=== PATIENT | male | born 1965 | race Caucasian/White ===

== ENCOUNTER 2017-10-13 07:25 | Day surgery (SDC) | payer OTHER ==
[2017-10-08 23:30] VITALS: BMI 42.8
[~2017-10-13 07:25] MED LIST: LACTATED RINGERS 1,000 ML IV SCH; LIDOCAINE 1% 20 ML VIAL (10MG/ML) FOR IV START INTRADERMA PRN
[2017-10-13 07:48] VITALS: RESP 16; TEMP 98.3
[2017-10-13] MEDS ORDERED: LIDOCAINE 1% INJ 10MG/ML (20 ML MDV) ONE (08:20)
[2017-10-13] MEDS ORDERED: MIDAZOLAM 2 MG/2 ML VIAL ONE (08:20)
[2017-10-13] MEDS ORDERED: PROPOFOL 10 MG/ML 20 ML VIAL IV ONE (08:20)
[2017-10-13 08:55] VITALS: PULSE 81
[2017-10-13 09:32] VITALS: BP 125/75
--- NOTE | 2017-10-13 10:09 | P.PCN ---
Date of Procedure: 10/13/17 Procedure(s) Performed: Procedure: Colonoscopy and polypectomy. Preoperative diagnosis: Screening for colon neoplasia. Postoperative diagnosis: 1. Sigmoid diverticulosis with no evidence of acute diverticulitis or strictures. 2. Two distal sigmoid polyps, snared, but no large polyps or cancer. Brief clinical history: The patient is a 62-year-old male who is referred for this evaluation for screening for neoplasia age being his risk factor. There is no family history of colon cancer. The patient has no abdominal complaints, bleeding or anemia. This would be his first colonoscopy. Procedure: With the patient on his left lateral decubitus position and after informed consent and adequate sedation, the perianal area was inspected and it did not show any fissures or fistulas. There were no masses felt on digital rectal examination. The Olympus CFQ 160L video colonoscope was then inserted in the rectum in the usual fashion and advanced to the cecum. There were several diverticular orifices seen scattered in the sigmoid with no evidence of acute diverticulitis or strictures. No polyps or tumors were seen. I retroflexed the endoscope in the rectum before the endoscope was withdrawn. The patient tolerated the procedure well. Plan: The patient was reassured. Discussed dietary measures. With the finding of polyps, I recommended repeat exam in 5 years. He will follow up with you as planned.
== END 2017-10-13 09:44 | disposition home or self-care (01) ==
LOC: ORWHC2ENDO 07:25
DX: Z12.11 Encounter for screening for malignant neoplasm of colon (principal); K63.5 Polyp of colon; K57.30 Diverticulosis of large intestine without perforation or abscess without bleeding; K21.9 Gastro-esophageal reflux disease without esophagitis; G47.33 Obstructive sleep apnea (adult) (pediatric); E66.01 Morbid (severe) obesity due to excess calories; Z68.41 Body mass index [BMI] 40.0-44.9, adult; Z79.1 Long term (current) use of non-steroidal anti-inflammatories (NSAID); Z79.899 Other long term (current) drug therapy; Z87.891 Personal history of nicotine dependence; Z99.89 Dependence on other enabling machines and devices
CPT/HCPCS: 45385; J2250; J2001; J2704; 88305

== ENCOUNTER → 2018-08-17 | Outpatient (CLI) | payer OTHER ==
--- NOTE | 2018-08-17 15:29 | XR ---
EXAMINATION TYPE: XR KUB DATE OF EXAM: 08/17/2018 COMPARISON: NONE HISTORY: Left flank pain TECHNIQUE: One view abdominal series FINDINGS: The osseous structures are intact. The bowel gas pattern is nonspecific. Calcifications in the pelvi s are nonspecific but likely vascular. Bowel content does limit assessment of the renal outlines but no obvious calcifications are seen. IMPRESSION: 1. Nonspecific abdomen.
== END | disposition home or self-care (01) ==
LOC: RADXRYALE 14:58
PROVIDERS: ATTEND Physician Assistant
DX: R10.9 Unspecified abdominal pain (principal)
CPT/HCPCS: 74018

== ENCOUNTER → 2018-09-23 | Outpatient (CLI) | payer OTHER ==
--- NOTE | 2018-09-23 15:53 | XR ---
EXAMINATION TYPE: XR knee complete LT DATE OF EXAM: 09/23/2018 COMPARISON: NONE HISTORY: Pain TECHNIQUE: Four views are submitted. FINDINGS: Joint spaces are preserved. Osseous structures are intact. No acute fracture seen. IMPRESSION: 1. No acute fracture or dislocation. If symptoms persist consider follow-up MRI
== END | disposition home or self-care (01) ==
LOC: RADXRYALE 14:51
PROVIDERS: ATTEND Physician Assistant Medical
DX: M25.562 Pain in left knee (principal)

== ENCOUNTER → 2019-02-08 | Outpatient (CLI) | payer OTHER ==
[2019-02-08 12:15] LABS: Basophils # (A) 0.1 k/uL (0-0.2); Basophils % (A) 1 %; Eosinophils # (A) 0.4 k/uL (0-0.7); Eosinophils % (A) 4 %; HCT 51.2 % (39.0-53.0); Lymphocytes # (A) 2.2 k/uL (1.0-4.8); Lymphocytes % (A) 26 %; MCH 29.7 pg (25.0-35.0); MCHC 33.1 g/dL (31.0-37.0); MCV 89.8 fL (80.0-100.0); Mean Platelet Volume 6.6; Monocytes # (A) 0.5 k/uL (0-1.0); Monocytes % (A) 5 %; Neutrophils # (A) 5.2 k/uL (1.3-7.7); Neutrophils % (A) 62 %; Platelet Count 301 k/uL (150-450); RBC 5.71 m/uL (4.30-5.90); RDW 13.8 % (11.5-15.5); WBC 8.4 k/uL (3.8-10.6)
== END | disposition home or self-care (01) ==
LOC: LABPAT 10:58
PROVIDERS: ATTEND Surgery
DX: Z01.810 Encounter for preprocedural cardiovascular examination (principal); Z01.812 Encounter for preprocedural laboratory examination; K43.2 Incisional hernia without obstruction or gangrene
CPT/HCPCS: 36415; 85025; 93005

== ENCOUNTER 2019-02-16 06:10 | Day surgery (SDC) | payer OTHER ==
[2019-02-11 11:16] VITALS: BMI 42.8
[~2019-02-16 06:10] MED LIST changes: +DEXAMETHASONE SOD PHOSPHATE 10 MG/ML 1 ML VIAL IV ONE; +HEPARIN SODIUM,PORCINE 5,000 UNIT/ML 1 ML VIAL SQ ONE; -LIDOCAINE 1% 20 ML VIAL (10MG/ML) FOR IV START INTRADERMA PRN; +MIDAZOLAM 2 MG/2 ML VIAL IV PRN; +ONDANSETRON 4 MG/2 ML VIAL IVP ONE; +SCOPOLAMINE 1.5MG/72HR PATCH TRANSDERM ONE; +ceFAZolin 3 GM in SODIUM CHLORIDE 0.9% 100 ML IVPB ONE
[2019-02-16] MEDS ORDERED: LIDOCAINE 1% 20 ML VIAL (10MG/ML) FOR IV START SQ ONE (07:10)
[2019-02-16] MEDS ORDERED: fentaNYL (PF) 50 MCG/ML 2 ML AMP IV ONE (07:17)
--- NOTE | 2019-02-16 07:47 | P.GSHP ---
History of Present Illness H&P Date: 02/16/19 Chief Complaint: Incarcerated ventral hernia This a 53-year-old male who presents today for laparoscopic robotic-assisted repair of incarcerated ventral hernia. Patient felt a 5 cm mass located approximately 4 cm above the umbilicus. Past Medical History Past Medical History: GERD/Reflux, Skin Disorder, Sleep Apnea/CPAP/BIPAP Additional Past Medical History / Comment(s): psoriasis, History of Any Multi-Drug Resistant Organisms: None Reported Past Surgical History: No Surgical Hx Reported Additional Past Surgical History / Comment(s): colonoscopy Past Anesthesia/Blood Transfusion Reactions: Motion Sickness Additional Past Anesthesia/Blood Transfusion Reaction / Comment(s): . Smoking Status: Former smoker - Past Family History Mother Family Medical History: No Reported History Medications and Allergies Home Medications Medication Instructions Recorded Confirmed Type Ibuprofen [Motrin] 800 - 1,000 mg PO DAILY PRN 10/08/17 02/11/19 History Loratadine-Pseudoeph 10-240 mg 1 each PO DAILY 10/08/17 02/16/19 History [Claritin-D 24 Hr] Esomeprazole Magnesium [NexIUM] 40 mg PO DAILY 02/11/19 02/16/19 History Allergies Allergy/AdvReac Type Severity Reaction Status Date / Time No Known Allergies Allergy Verified 02/16/19 06:41 Surgical - Exam Vital Signs Temp Pulse Resp BP Pulse Ox 98.3 F 79 16 123/69 95 02/16/19 06:49 02/16/19 06:49 02/16/19 06:49 02/16/19 06:49 02/16/19 06:49 BMI 43 - General well developed, well nourished, no distress - Eyes PERRL - ENT normal pinna - Neck no masses - Respiratory normal expansion - Cardiovascular Rhythm: regular - Abdomen 5 cm incarcerated ventral hernia located approximately for 7 m above the umbilicus. Abdomen: soft, non tender Assessment and Plan Assessment: Incarcerated ventral hernia. We'll perform laparoscopic robotic-assisted repair.
[2019-02-16] MEDS ORDERED: ROCURONIUM BROMIDE 10 MG/ML 10 ML VIAL IV ONE (07:54)
[2019-02-16] MEDS ORDERED: fentaNYL (PF) 50 MCG/ML 2 ML AMP ONE (07:54)
[2019-02-16] MEDS ORDERED: LIDOCAINE 2%-EPI 1:100,000 20 ML VIAL ONE (07:54)
[2019-02-16] MEDS ORDERED: MIDAZOLAM 2 MG/2 ML VIAL ONE (07:54)
[2019-02-16] MEDS ORDERED: ROPIVACAINE 5 MG/ML 30 ML VIAL ONE (07:54)
[2019-02-16] MEDS ORDERED: GLYCOPYRROLATE 0.2 MG/ML 2 ML VIAL ONE (07:54)
[2019-02-16] MEDS ORDERED: LIDOCAINE 1% INJ 10MG/ML (20 ML MDV) ONE (07:54)
[2019-02-16] MEDS ORDERED: NEOSTIGMINE 1 MG/ML 10 ML VIAL ONE (07:54)
[2019-02-16] MEDS ORDERED: PROPOFOL 10 MG/ML 20 ML VIAL IV ONE (07:54)
[2019-02-16] MEDS ORDERED: SUCCINYLCHOLINE CHLORIDE VIAL 200 MG/10 ML VIAL IV ONE (07:54)
[2019-02-16] MEDS ORDERED: BUPIVACAINE (PF) 0.25% 30 ML VIAL SQ ONE (08:39)
[2019-02-16 09:19] VITALS: TEMP 97.4
[2019-02-16] MEDS: HYDROmorphone 0.5 MG/0.5 ML SYRINGE IVP PRN ×2 (09:27→10:00)
--- NOTE | 2019-02-16 09:44 | P.OP ---
Date of Procedure: 02/16/19 Preoperative Diagnosis: Incarcerated ventral hernia Postoperative Diagnosis: Incarcerated ventral hernia Procedure(s) Performed: Laparoscopic robotic-assisted repair of incarcerated ventral hernia Partial omentectomy Anesthesia: BAKARI Surgeon: Stevie Germain Estimated Blood Loss (ml): 5 Pathology: other (Omentum) Condition: stable Disposition: PACU Description of Procedure: The patient was placed on the operating table in the supine position. He received general anesthesia. His abdomen was prepped and draped usual fashion. Using a 5 mm optical trocar under direct visualization the peritoneal cavity was entered in the left upper quadrant. The abdomen was then insufflated. The laparoscope was placed back into the perineal cavity. Next a 8 mm robotic trocar was placed in the left lower quadrant and a 12 mm robotic trocar was placed in the left lateral position. The original 5 mm trocar was exchanged for a 8 mm robotic trocar. The patient's placed in the left side up position. And the patient was docked to the robot. The incarcerated ventral hernia was visualized. There was incarcerated omentum within the hernia. Using hook cautery the hernia was reduced. A portion of the omentum was transected. This was sent to pathology. Using hook cautery the peritoneum over the incisional hernia was excised. The fascial opening was repaired using 0V LOC suture. Next a piece of 11 cm round ventral light ST mesh was placed into the. Cavity and secured with 2 OV lock suture. The patient was undocked the robot. The needles were retrieved. The fascia of the 12 mm trocar site was closed with 0 Ethibond suture. Skin was closed interrupted 3-0 Monocryl suture. Dermabond dressings was applied. Patient tolerated procedure well and was sent to recovery room stable condition.
--- NOTE | 2019-02-16 10:18 | P.ONQ ---
Anesthesiology Proc Note - PNB - Peripheral Nerve Block Performed Bilateral Rectus Abdominis Single Time Out Performed: Yes Procedure Stop Time: 07:18 Indication: Acute Post-Operative Pain Specifically requested for management of pain by DrParis: Stevie Germain Sedation Type: Sedate with meaningful contact maintained Preparation: Sterile Prep Position: Supine Catheter: None Needle Types: Other (see comment) (PAJUNK) Needle Size: 100mm (4") Needle Gauge: 21 Technique: Ultrasound Injectate: Other (see comment) (Ropivacaine 0.25%/lidocaine 0.5% 30 mL per side) Adjunct: Epinephrine (see comment for dilution ratio) (1:200,000) Blood Aspirated: No Pain Paresthesia on Injection Noted: No Resistance on Injection: Normal Events: Uneventful and Well Tolerated
[2019-02-16 10:22] VITALS: RESP 16
[2019-02-16] MEDS ORDERED: HYDROcodone/APAP 7.5-325MG 1 EACH TAB PO ONE (11:09)
[2019-02-16 11:11] VITALS: PULSE 73
[2019-02-16 12:25] VITALS: BP 119/78
== END 2019-02-16 12:33 | disposition home or self-care (01) ==
LOC: OR 06:10
PROVIDERS: ATTEND Surgery
DX: K43.6 Other and unspecified ventral hernia with obstruction, without gangrene (principal); L40.9 Psoriasis, unspecified; K21.9 Gastro-esophageal reflux disease without esophagitis; G47.33 Obstructive sleep apnea (adult) (pediatric); Z99.89 Dependence on other enabling machines and devices; Z87.891 Personal history of nicotine dependence; Z79.899 Other long term (current) drug therapy
CPT/HCPCS: 49653; S2900; 64488; 88302

== ENCOUNTER 2019-04-06 09:50 | Emergency (ER) | payer OTHER ==
[2019-04-06 09:56] VITALS: TEMP 97.6
--- NOTE | 2019-04-06 10:19 | ED ---
General Adult HPI - General Chief complaint: Abdominal Pain Stated complaint: lt sided abd pain Time Seen by Provider: 04/06/19 10:04 Source: patient, RN notes reviewed Mode of arrival: ambulatory Limitations: no limitations - History of Present Illness Initial comments: 53-year-old male with a past medical history of GERD, psoriasis, sleep apnea presents to the emergency department for a chief complaint of left flank pain. Patient states this has been ongoing for a few hours now. States it is a sharp pain in his left back that radiates into the left side of the abdomen. Patient states he feels like he does have a strange sensation when urinating. Denies noticing any blood in the urine. Patient does admit to nausea denies vomiting. Patient did have diarrhea several times yesterday as well. Denies fevers or chills. Patient did have a laparoscopic hernia repair [address] Germain. Patient has no other complaints at this time including shortness of breath, chest pain, vomiting, headache, or visual changes. - Related Data Home Medications Medication Instructions Recorded Confirmed Ibuprofen [Motrin] 800 - 1,000 mg PO DAILY PRN 10/08/17 04/06/19 Loratadine-Pseudoeph 10-240 mg 1 tab PO DAILY 10/08/17 04/06/19 [Claritin-D 24 Hr] Esomeprazole Magnesium [NexIUM] 40 mg PO DAILY 02/11/19 04/06/19 Oxymetazoline 0.05% Nasl [place] 1 spray EA NOSTRIL BID PRN 04/06/19 04/06/19 [Afrin 0.05% Nasal [place]] Previous Rx's Medication Instructions Recorded HYDROcodone/APAP 5-325MG [[place] 1 tab PO Q6HR PRN #10 tab 04/06/19 5-325] Ibuprofen [Motrin] 600 mg PO Q8HR PRN #20 tab 04/06/19 Ondansetron [Zofran ODT] 4 mg PO Q8HR PRN #15 tab 04/06/19 Tamsulosin [Flomax] 0.4 mg PO DAILY #14 cap 04/06/19 Allergies Allergy/AdvReac Type Severity Reaction Status Date / Time No Known Allergies Allergy Verified 04/06/19 10:02 Review of Systems ROS Statement: Those systems with pertinent positive or pertinent negative responses have been documented in the HPI. ROS Other: All systems not noted in ROS Statement are negative. Past Medical History Past Medical History: GERD/Reflux, Skin Disorder, Sleep Apnea/CPAP/BIPAP Additional Past Medical History / Comment(s): psoriasis, History of Any Multi-Drug Resistant Organisms: None Reported Past Surgical History: No Surgical Hx Reported, Hernia Repair Additional Past Surgical History / Comment(s): colonoscopy Past Anesthesia/Blood Transfusion Reactions: Motion Sickness Additional Past Anesthesia/Blood Transfusion Reaction / Comment(s): . Past Psychological History: No Psychological Hx Reported Smoking Status: Former smoker Past Alcohol Use History: Occasional Past Drug Use History: None Reported - Past Family History Mother Family Medical History: No Reported History General Exam Limitations: no limitations General appearance: alert, in no apparent distress Head exam: Present: atraumatic, normocephalic, normal inspection Eye exam: Present: normal appearance, PERRL, EOMI. Absent: scleral icterus, conjunctival injection, periorbital swelling ENT exam: Present: normal exam, mucous membranes moist Neck exam: Present: normal inspection, full ROM. Absent: tenderness, meningis mus, lymphadenopathy Respiratory exam: Present: normal lung sounds bilaterally. Absent: respiratory distress, wheezes, rales, rhonchi, stridor Cardiovascular Exam: Present: regular rate, normal rhythm, normal heart sounds. Absent: systolic murmur, diastolic murmur, rubs, gallop, clicks GI/Abdominal exam: Present: soft, normal bowel sounds. Absent: distended, tenderness (Tenderness in the abdomen.), guarding, rebound, rigid Back exam: Absent: CVA tenderness (R), CVA tenderness (L) Neurological exam: Present: alert, oriented X3, CN II-XII intact Psychiatric exam: Present: normal affect, normal mood Course Vital Signs 04/06/19 09:53 Temperature 97.6 F Pulse Rate 70 Respiratory 20 Rate Blood Pressure 164/98 O2 Sat by Pulse 97 Oximetry Medical Decision Making - Medical Decision Making Shad is a 53-year-old male presents for left flank pain for the past few hours. Vitals are stable. On exam patient does appear uncomfortable. Patient does not have any significant left CVA tenderness. No abdominal tenderness. CBC shows a leukocytosis of 13.6, likely reactive. CMP is unremarkable. Urine does show 72 red blood cells, likely secondary to ureterolithiasis. On CT abdomen and pelvis without contrast there is an indeterminate soft tissue mass on the lower pole of the left kidney with a differential to include renal cell carcinoma. There is also a 4 mm obstructive ureteral calculus with left-sided hydronephrosis and possible forniceal rupture. Dr. Pressley spoke with urology about this. They recommend follow-up with them. Initially given Toradol which did help with his pain however did come back somewhat so patient was given morphine and monitored before discharge. Discussed results of CT with patient a nd he will follow up with her ALLERGY. He is aware of possible malignancy. Patient will be given pain medicine for home. Will return here if he has any worsening symptoms, intolerable pain, or is unable to keep down solids or liquids. - Lab Data Result diagrams: 04/06/19 11:05 04/06/19 11:05 Lab Results 04/06/19 04/06/19 04/06/19 Range/Units 11:05 11:05 12:15 WBC 13.6 H (3.8-10.6) k/uL RBC 5.40 (4.30-5.90) m/uL Hgb 15.8 (13.0-17.5) gm/dL Hct 46.6 (39.0-53.0) % MCV 86.2 (80.0-100.0) fL MCH 29.2 (25.0-35.0) pg MCHC 33.9 (31.0-37.0) g/dL RDW 15.8 H (11.5-15.5) % Plt Count 289 (150-450) k/uL Neutrophils % 88 % Lymphocytes % 7 % Monocytes % 4 % Eosinophils % 1 % Basophils % 0 % Neutrophils # 12.0 H (1.3-7.7) k/uL Lymphocytes # 1.0 (1.0-4.8) k/uL Monocytes # 0.5 (0-1.0) k/uL Eosinophils # 0.1 (0-0.7) k/uL Basophils # 0.0 (0-0.2) k/uL Sodium 140 (137-145) mmol/L Potassium 4.1 (3.5-5.1) mmol/L Chloride 109 H (98-107) mmol/L Carbon Dioxide 21 L (22-30) mmol/L Anion Gap 10 mmol/L BUN 18 (9-20) mg/dL Creatinine 1.08 (0.66-1.25) mg/dL Est GFR (CKD-EPI)AfAm >90 (>60 ml/min/1.73 sqM) Est GFR (CKD-EPI)NonAf 78 (>60 ml/min/1.73 sqM) Glucose 130 H (74-99) mg/dL Calcium 9.4 (8.4-10.2) mg/dL Total Bilirubin 0.5 (0.2-1.3) mg/dL AST 24 (17-59) U/L ALT 43 (21-72) U/L Alkaline Phosphatase 91 (38-126) U/L Total Protein 6.5 (6.3-8.2) g/dL Albumin 3.9 (3.5-5.0) g/dL Amylase 54 (30-110) U/L Lipase 52 (23-300) U/L Urine Color Yellow Urine Appearance Turbid (Clear) Urine pH 5.0 (5.0-8.0) Ur Specific [place] 1.028 (1.001-1.035) Urine Protein Trace H (Negative) Urine Glucose (UA) 1+ H (Negative) Urine Ketones Trace H (Negative) Urine Blood Moderate H (Negative) Urine Nitrite Negative (Negative) Urine Bilirubin Negative (Negative) Urine Urobilinogen <2.0 (<2.0) mg/dL Ur Leukocyte Esterase Negative (Negative) Urine RBC 72 H (0-5) /hpf Urine WBC 1 (0-5) /hpf Ur Squamous Epith Cells 3 (0-4) /hpf Urine Mucus Rare H (None) /hpf Disposition Clinical Impression: Ureterolithiasis, Left kidney mass Disposition: HOME SELF-CARE Condition: Good Instructions (If sedation given, give patient instructions): Kidney Stones (ED) Additional Instructions: Please take Motrin for pain. If pain is severe take [place]. Do not drive or operate machinery while taking [place]. Take Zofran for nausea. Take Flomax daily. Follow up with urology as soon as possible. Return if you have any worsening symptoms. Prescriptions: Tamsulosin [Flomax] 0.4 mg PO DAILY #14 cap Ibuprofen [Motrin] 600 mg PO Q8HR PRN #20 tab PRN Reason: Pain HYDROcodone/APAP 5-325MG [[place] 5-325] 1 tab PO Q6HR PRN #10 tab PRN Reason: Pain Ondansetron [Zofran ODT] 4 mg PO Q8HR PRN #15 tab PRN Reason: Nausea Is patient prescribed a controlled substance at d/c from ED?: No Referrals: Gee Logan DO [Primary Care Provider] - 1-2 days Deepak Madera MD [STAFF PHYSICIAN] - 1-2 days Time of Disposition: 13:19
[2019-04-06] MEDS ORDERED: ONDANSETRON 4 MG/2 ML VIAL IVP STA (10:21)
[2019-04-06] MEDS ORDERED: SODIUM CHLORIDE 0.9% 1,000 ML IV STA (10:21)
[2019-04-06] MEDS ORDERED: KETOROLAC 30 MG/ML 1 ML VIAL IVP STA (10:21)
[2019-04-06 11:18] LABS: Basophils % (A) 0 %; Eosinophils # (A) 0.1 k/uL (0-0.7); Eosinophils % (A) 1 %; HCT 46.6 % (39.0-53.0); HGB 15.8 gm/dL (13.0-17.5); Lymphocytes % (A) 7 %; MCH 29.2 pg (25.0-35.0); MCHC 33.9 g/dL (31.0-37.0); MCV 86.2 fL (80.0-100.0); Mean Platelet Volume 7.1; Monocytes # (A) 0.5 k/uL (0-1.0); Monocytes % (A) 4 %; Neutrophils % (A) 88 %; Platelet Count 289 k/uL (150-450); RDW 15.8 % (11.5-15.5); WBC 13.6 k/uL (3.8-10.6)
[2019-04-06 11:34] LABS: ALT 43 U/L (21-72); AST 24 U/L (17-59); African American GFR (CKD) >90 (>60 ml/min/1.73 sqM); Albumin 3.9 g/dL (3.5-5.0); Alkaline Phosphatase 91 U/L (38-126); Amylase 54 U/L (30-110); Anion Gap 10 mmol/L; Blood Urea Nitrogen 18 mg/dL (9-20); Calcium 9.4 mg/dL (8.4-10.2); Carbon Dioxide 21 mmol/L (22-30); Chloride 109 mmol/L (98-107); Glucose 130 mg/dL (74-99); Lipase 52 U/L (23-300); Potassium 4.1 mmol/L (3.5-5.1); Sodium 140 mmol/L (137-145); Total Bilirubin 0.5 mg/dL (0.2-1.3); Total Protein 6.5 g/dL (6.3-8.2)
--- NOTE | 2019-04-06 11:39 | XR ---
KUB HISTORY: Pain, left flank pain Frontal KUB and 2 images Correlation to prior exam 08/17/[address] 04/06/2019 Lung bases are clear. There is no evident pneumoperitoneum or bowel obstruction. Slight spinal curva ture is again noted. Degenerative disc disease changes suspected in the lumbar spine. Partial sacrali zation of L5 noted. Probable calcification seen at the level of the left L4 transverse process measur ing approximately 4 mm. IMPRESSION: Nonobstructive bowel gas pattern. Left ureteral calculus.
--- NOTE | 2019-04-06 11:45 | CT ---
EXAMINATION TYPE: CT abdomen pelvis wo con DATE OF EXAM: 04/06/2019 COMPARISON: KUB same date HISTORY: Lt flank pain CT DLP: 1443.4 mGycm Automated exposure control for dose reduction was used. TECHNIQUE: Helical acquisition of images from the lung bases through the pelvis. FINDINGS: Lack of contrast could compromise the sensitivity of the exam. LUNG BASES: There is some dependent atelectatic changes present. There is a small hiatal hernia. AORTA: No significant abnormality is appreciated. LIVER/GB: Borderline upper limit of normal for size, liver attenuation is low suggesting hepatic stea tosis. Gallbladder is normal. PANCREAS: No significant abnormality is seen. SPLEEN: No significant abnormality is seen. ADRENALS: No significant abnormality is seen. KIDNEYS: There is a soft tissue mass at the lower pole the left kidney measuring approximately 5 cm i n size. Nonobstructive calculus is present in the lower pole the left kidney measuring only 2 mm. The re is left-sided hydronephrosis. Perinephric stranding is present. Within the mid ureter there is a 4 mm calcification on the left. REPRODUCTIVE ORGANS: No significant abnormality is seen. URINARY BLADDER: Urine shows high density possibly due to some blood within the bladder BOWEL: No si gnificant abnormality is seen. FREE AIR: No Free Air is visible. ASCITES: None visible. PELVIC ADENOPATHY: None visualized. RETROPERITONEAL ADENOPATHY: No Retroperitoneal Adenopathy visible. OSSEOUS STRUCTURES: No significant abnormality is seen. IMPRESSION: INDETERMINATE SOFT TISSUE MASS LOWER POLE LEFT KIDNEY, DIFFERENTIAL DIAGNOSTIC CONSIDERATIONS INCLUDE RENAL CELL CARCINOMA. MID URETERAL CALCULUS WITH LEFT-SIDED HYDRONEPHROSIS AND POSSIBLE FORNICEAL RU PTURE. NONOBSTRUCTIVE LOWER POLE RENAL CALCULUS ON THE LEFT. NONCONTRAST EXAM MAY LIMIT SENSITIVITY. CORRELATE FOR HEPATIC STEATOSIS. SMALL HIATAL HERNIA. ADDITIONAL FINDINGS ABOVE.
[2019-04-06 12:40] LABS: Appearance,Urine Turbid (Clear); Bilirubin,Urine Negative (Negative); Blood,Urine Moderate (Negative); Color,Urine Yellow; Glucose,Urine (UA) 1+ (Negative); Ketones,Urine Trace (Negative); Leukocyte Esterase,Urine Negative (Negative); Mucus,Urine Rare /hpf; Nitrite,Urine Negative (Negative); Protein,Urine Trace (Negative); RBC,Urine 72 /hpf (0-5); Specific Gravity,Urine 1.028 (1.001-1.035); Squamous Epithelial Cell,Urine 3 /hpf (0-4); Urobilinogen,Urine <2.0 mg/dL (<2.0); WBC,Urine 1 /hpf (0-5)
[2019-04-06] MEDS ORDERED: MORPHINE SULFATE 4 MG/ML SYRINGE IVP STA (13:42)
[2019-04-06 14:11] VITALS: BP 150/89; PULSE 72; RESP 16
== END 2019-04-06 14:10 | disposition home or self-care (01) ==
LOC: EC 09:50
DX: N13.2 Hydronephrosis with renal and ureteral calculous obstruction (principal); N28.89 Other specified disorders of kidney and ureter; D72.829 Elevated white blood cell count, unspecified; K21.9 Gastro-esophageal reflux disease without esophagitis; L40.9 Psoriasis, unspecified; G47.30 Sleep apnea, unspecified; Z87.891 Personal history of nicotine dependence; Z79.899 Other long term (current) drug therapy; Z98.890 Other specified postprocedural states; Z99.89 Dependence on other enabling machines and devices
CPT/HCPCS: 99284; 96374; 96375; 96361; 36415; 80053; 82150; 83690; 85025; 81001; 74018; 74176; J2270; J2405; J1885

== ENCOUNTER 2019-04-09 20:12 | Emergency (ER) | payer OTHER ==
[2019-04-09 20:25] VITALS: RESP 16; TEMP 98.1
[2019-04-09] MEDS ORDERED: KETOROLAC 30 MG/ML 1 ML VIAL IVP ONE (21:16)
[2019-04-09 21:59] LABS: Basophils % (A) 0 %; Eosinophils # (A) 0.4 k/uL (0-0.7); Eosinophils % (A) 4 %; HCT 45.3 % (39.0-53.0); HGB 15.5 gm/dL (13.0-17.5); Lymphocytes # (A) 1.5 k/uL (1.0-4.8); Lymphocytes % (A) 13 %; MCH 29.3 pg (25.0-35.0); MCHC 34.2 g/dL (31.0-37.0); MCV 85.8 fL (80.0-100.0); Mean Platelet Volume 6.4; Monocytes # (A) 0.7 k/uL (0-1.0); Monocytes % (A) 6 %; Neutrophils # (A) 8.4 k/uL (1.3-7.7); Neutrophils % (A) 75 %; Platelet Count 289 k/uL (150-450); RBC 5.28 m/uL (4.30-5.90); RDW 13.9 % (11.5-15.5); WBC 11.3 k/uL (3.8-10.6)
[2019-04-09 22:09] LABS: ALT 26 U/L (21-72); AST 16 U/L (17-59); African American GFR (CKD) >90 (>60 ml/min/1.73 sqM); Albumin 3.4 g/dL (3.5-5.0); Alkaline Phosphatase 78 U/L (38-126); Anion Gap 8 mmol/L; Blood Urea Nitrogen 22 mg/dL (9-20); Calcium 9.2 mg/dL (8.4-10.2); Carbon Dioxide 24 mmol/L (22-30); Chloride 107 mmol/L (98-107); Glucose 123 mg/dL (74-99); Sodium 139 mmol/L (137-145); Total Bilirubin 0.2 mg/dL (0.2-1.3); Total Protein 5.7 g/dL (6.3-8.2)
[2019-04-09 22:10] LABS: Appearance,Urine Cloudy (Clear); Bilirubin,Urine Negative (Negative); Blood,Urine Moderate (Negative); Color,Urine Yellow; Glucose,Urine (UA) Negative (Negative); Hyaline Casts,Urine 1 /lpf (0-2); Ketones,Urine Negative (Negative); Leukocyte Esterase,Urine Negative (Negative); Mucus,Urine Rare /hpf; Nitrite,Urine Negative (Negative); Protein,Urine Negative (Negative); RBC,Urine 36 /hpf (0-5); Specific Gravity,Urine 1.023 (1.001-1.035); Squamous Epithelial Cell,Urine 2 /hpf (0-4); Uric Acid Crystals,Urine Occasional /hpf; Urobilinogen,Urine <2.0 mg/dL (<2.0); WBC,Urine 3 /hpf (0-5)
--- NOTE | 2019-04-09 23:28 | ED ---
Abdominal Pain HPI - General Chief Complaint: Abdominal Pain Stated Complaint: Revisit Dx Kidney Stones Time Seen by Provider: 04/09/19 21:15 Source: patient Mode of arrival: ambulatory - History of Present Illness Initial Comments: Shad is a 53-year-old woman who presents to the ER today for evaluation of recurrent left flank pain. Patient was seen and evaluated earlier in the week and diagnosed with a left mid ureteral stone measuring 4 mm. Patient was treated with morphine and Toradol in the ER and discharged home with Flomax, Motrin and Elaine. Patient reports he's been compliant with his meds. He's been feeling good for a day however today he had sudden onset of stabbing left flank pain similar to previous. Patient reports that despite taking his Elaine his augustine n did not improve so he came to the ER for evaluation. Patient denies any dysuria, gross hematuria, nausea or vomiting. He denies any fevers chills. - Related Data Home Medications Medication Instructions Recorded Confirmed Loratadine-Pseudoeph 10-240 mg 1 tab PO DAILY 10/08/17 04/09/19 [Claritin-D 24 Hr] Esomeprazole Magnesium [NexIUM] 40 mg PO DAILY 02/11/19 04/09/19 Oxymetazoline 0.05% Nasl [place] 1 spray EA NOSTRIL BID PRN 04/06/19 04/09/19 [Afrin 0.05% Nasal [place]] Previous Rx's Medication Instructions Recorded HYDROcodone/APAP 5-325MG [[place] 1 tab PO Q6HR PRN #10 tab 04/06/19 5-325] Ibuprofen [Motrin] 600 mg PO Q8HR PRN #20 tab 04/06/19 Ondansetron [Zofran ODT] 4 mg PO Q8HR PRN #15 tab 04/06/19 Tamsulosin [Flomax] 0.4 mg PO DAILY #14 cap 04/06/19 Allergies Allergy/AdvReac Type Severity Reaction Status Date / Time No Known Allergies Allergy Verified 04/09/19 21:53 Review of Systems ROS Statement: Those systems with pertinent positive or pertinent negative responses have been documented in the HPI. ROS Other: All systems not noted in ROS Statement are negative. Past Medical History Past Medical History: GERD/Reflux, Skin Disorder, Sleep Apnea/CPAP/BIPAP Additional Past Medical History / Comment(s): psoriasis, History of Any Multi-Drug Resistant Organisms: None Reported Past Surgical History: No Surgical Hx Reported, Hernia Repair Additional Past Surgical History / Comment(s): colonoscopy Past Anesthesia/Blood Transfusion Reactions: Motion Sickness Additional Past Anesthesia/Blood Transfusion Reaction / Comment(s): . Past Psychological History: No Psychological Hx Reported Smoking Status: Former smoker Past Alcohol Use History: Occasional Past Drug Use History: None Reported - Past Family History Mother Family Medical History: No Reported History General Exam - General Exam Comments Initial Comments: Physical Exam GENERAL: Appears uncomfortable, writhing rocking back and forth in pain cannot find a comfortable position HENT: Normocephalic, Atraumatic. EYES: PERRL, EOMI PULMONARY: Unlabored respirations. No audible rales rhonchi or wheezing was noted. CARDIOVASCULAR: There is a regular rate and rhythm without any murmurs gallops or rubs. ABDOMEN: And percussion of the left flank SKIN: Skin is clear with no lesions or rashes and otherwise unremarkable. : Deferred NEUROLOGIC: Patient is alert and oriented x3. Moving all extremities spontaneously MUSCULOSKELETAL: Normal extremities with adequate strength and full range of motion. No lower extremity swelling or edema. No calf tenderness. PSYCHIATRIC: Normal psychiatric evaluation Course Vital Signs 04/09/19 04/09/19 20:22 23:40 Temperature 98.1 F Pulse Rate 77 73 Respiratory 16 16 Rate Blood Pressure 168/105 121/70 O2 Sat by Pulse 96 97 Oximetry Medical Decision Making - Medical Decision Making The patient was seen and evaluated, history is obtained from the patient review of medical record 53-year-old gentleman with a known kidney stone as well as no left-sided renal mass presenting with recurrent pain Patient's pain was treated with Toradol upon reevaluation pain has improved significantly. I did offer the patient morphine however he states that he didn't do anything for him and he doesn't feel he benefit him he would like to be discharged home at this time. Patient is to follow-up with urology as scheduled on Friday. All questions pertaining care were answered return parameters were discussed patient was discharged home in stable condition Chart was dictated using [employer] dictation software. Attempts were made to correct any dictation errors however some typographical errors may persist. - Lab Data Result diagrams: 04/09/19 21:50 04/09/19 21:50 Lab Results 04/09/19 04/09/19 04/09/19 Range/Units 21:50 21:50 21:50 WBC 11.3 H (3.8-10.6) k/uL RBC 5.28 (4.30-5.90) m/uL Hgb 15.5 (13.0-17.5) gm/dL Hct 45.3 (39.0-53.0) % MCV 85.8 (80.0-100.0) fL MCH 29.3 (25.0-35.0) pg MCHC 34.2 (31.0-37.0) g/dL RDW 13.9 (11.5-15.5) % Plt Count 289 (150-450) k/uL Neutrophils % 75 % Lymphocytes % 13 % Monocytes % 6 % Eosinophils % 4 % Basophils % 0 % Neutrophils # 8.4 H (1.3-7.7) k/uL Lymphocytes # 1.5 (1.0-4.8) k/uL Monocytes # 0.7 (0-1.0) k/uL Eosinophils # 0.4 (0-0.7) k/uL Basophils # 0.0 (0-0.2) k/uL Sodium 139 (137-145) mmol/L Potassium 4.0 (3.5-5.1) mmol/L Chloride 107 (98-107) mmol/L Carbon Dioxide 24 (22-30) mmol/L Anion Gap 8 mmol/L BUN 22 H (9-20) mg/dL Creatinine 0.95 (0.66-1.25) mg/dL Est GFR (CKD-EPI)AfAm >90 (>60 ml/min/1.73 sqM) Est GFR (CKD-EPI)NonAf >90 (>60 ml/min/1.73 sqM) Glucose 123 H (74-99) mg/dL Calcium 9.2 (8.4-10.2) mg/dL Total Bilirubin 0.2 (0.2-1.3) mg/dL AST 16 L (17-59) U/L ALT 26 (21-72) U/L Alkaline Phosphatase 78 (38-126) U/L Total Protein 5.7 L (6.3-8.2) g/dL Albumin 3.4 L (3.5-5.0) g/dL Urine Color Yellow Urine Appearance Cloudy (Clear) Urine pH 5.0 (5.0-8.0) Ur Specific [place] 1.023 (1.001-1.035) Urine Protein Negative (Negative) Urine Glucose (UA) Negative (Negative) Urine Ketones Negative (Negative) Urine Blood Moderate H (Negative) Urine Nitrite Negative (Negative) Urine Bilirubin Negative (Negative) Urine Urobilinogen <2.0 (<2.0) mg/dL Ur Leukocyte Esterase Negative (Negative) Urine RBC 36 H (0-5) /hpf Urine WBC 3 (0-5) /hpf Ur Squamous Epith Cells 2 (0-4) /hpf Uric Acid Crystals Occasional H (None) /hpf Hyaline Casts 1 (0-2) /lpf Urine Mucus Rare H (None) /hpf Disposition Clinical Impression: Ureterolithiasis Disposition: HOME SELF-CARE Condition: Stable Instructions (If sedation given, give patient instructions): Kidney Stones (ED) Is patient prescribed a controlled substance at d/c from ED?: No Referrals: Gee Logan DO [Primary Care Provider] - 1-2 days
[2019-04-09 23:41] VITALS: BP 121/70; PULSE 73
== END 2019-04-09 23:41 | disposition home or self-care (01) ==
LOC: EC 20:12
DX: N20.2 Calculus of kidney with calculus of ureter (principal); K21.9 Gastro-esophageal reflux disease without esophagitis; G47.30 Sleep apnea, unspecified; Z87.891 Personal history of nicotine dependence; Z79.899 Other long term (current) drug therapy; Z99.89 Dependence on other enabling machines and devices
CPT/HCPCS: 36415; 80053; 85025; 81001; 99284; 96374; J1885

== ENCOUNTER → 2019-04-23 | Outpatient (CLI) | payer OTHER ==
--- NOTE | 2019-04-23 20:46 | CT ---
EXAMINATION TYPE: CT abdomen pelvis w con DATE OF EXAM: 04/23/2019 COMPARISON: Prior CT 04/06/2019 HISTORY: LT renal cyst. Hx hernia sx CT DLP: 1926 mGycm Automated exposure control for dose reduction was used. TECHNIQUE: Helical acquisition of images from the lung bases through the pelvis have been completed. CONTRAST: Performed with Oral Contrast and with IV Contrast, patient injected with 100 mL of Isovue 300. FINDINGS: There is a small hiatal hernia present. Supraumbilical subcutaneous fat shows increased att enuation as on prior possibly due to underlying scar or local ecchymosis, cannot exclude inflammatory change, infection. There is a small umbilical hernia containing fat. LUNG BASES: 5 mm nodule associated with the major fissure shows a soft tissue parents the right lower lobe, there is an additional nodule in the subpleural location on axial image 2 in the lingula showi ng possible central calcification, nodules may be benign. AORTA: No significant abnormality is appreciated. LIVER/GB: Liver shows low attenuation and is enlarged likely due to hepatic steatosis. PANCREAS: No significant abnormality is seen. SPLEEN: No significant abnormality is seen. ADRENALS: No significant abnormality is seen. KIDNEYS: Lesion at the lower pole left kidney measures approximately 5.3 cm in greatest dimension and shows enhancement, heterogeneous appearance compatible with renal cell carcinoma. No hydronephrosis bilaterally. REPRODUCTIVE ORGANS: No significant abnormality is seen BOWEL: No significant abnormality is seen. FREE AIR: No Free Air visible. ASCITES: None visible. PELVIC ADENOPATHY: None visualized. RETROPERITONEAL ADENOPATHY: No Retroperitoneal Adenopathy visible. URINARY BLADDER: No significant abnormality is seen. OSSEOUS STRUCTURES: No significant abnormality is seen. IMPRESSION: FINDINGS CONSISTENT WITH LEFT RENAL CELL CARCINOMA. HEPATIC STEATOSIS, HEPATOMEGALY. FINDINGS IN THE SUBCUTANEOUS FAT IN THE SUPRAUMBILICAL LOCATION. INDETERMINATE PULMONARY NODULES.
== END | disposition home or self-care (01) ==
LOC: RADCTMAIN 15:40
PROVIDERS: ATTEND Urology
DX: K76.0 Fatty (change of) liver, not elsewhere classified (principal); R16.0 Hepatomegaly, not elsewhere classified
CPT/HCPCS: 74177; Q9967

== ENCOUNTER → 2019-05-12 | Outpatient (CLI) | payer OTHER ==
[2019-05-12 08:24] LABS: Basophils % (A) 0 %; Eosinophils # (A) 0.3 k/uL (0-0.7); Eosinophils % (A) 4 %; HCT 48.2 % (39.0-53.0); HGB 16.3 gm/dL (13.0-17.5); Lymphocytes # (A) 1.8 k/uL (1.0-4.8); Lymphocytes % (A) 22 %; MCH 29.8 pg (25.0-35.0); MCHC 33.8 g/dL (31.0-37.0); Mean Platelet Volume 6.6; Monocytes # (A) 0.6 k/uL (0-1.0); Monocytes % (A) 7 %; Neutrophils # (A) 5.4 k/uL (1.3-7.7); Neutrophils % (A) 66 %; Platelet Count 276 k/uL (150-450); RBC 5.48 m/uL (4.30-5.90); RDW 14.2 % (11.5-15.5); WBC 8.3 k/uL (3.8-10.6)
[2019-05-12 08:25] LABS: Appearance,Urine Clear (Clear); Bilirubin,Urine Negative (Negative); Blood,Urine Negative (Negative); Color,Urine Yellow; Glucose,Urine (UA) Negative (Negative); Ketones,Urine Negative (Negative); Leukocyte Esterase,Urine Negative (Negative); Nitrite,Urine Negative (Negative); Protein,Urine Negative (Negative); Specific Gravity,Urine 1.026 (1.001-1.035); Urobilinogen,Urine <2.0 mg/dL (<2.0)
[2019-05-12 08:32] LABS: ALT 33 U/L (21-72); AST 17 U/L (17-59); African American GFR (CKD) >90 (>60 ml/min/1.73 sqM); Albumin 3.7 g/dL (3.5-5.0); Alkaline Phosphatase 70 U/L (38-126); Anion Gap 10 mmol/L; Blood Urea Nitrogen 19 mg/dL (9-20); Calcium 9.1 mg/dL (8.4-10.2); Carbon Dioxide 24 mmol/L (22-30); Chloride 107 mmol/L (98-107); Glucose 101 mg/dL (74-99); Potassium 4.4 mmol/L (3.5-5.1); Sodium 141 mmol/L (137-145); Total Bilirubin 0.6 mg/dL (0.2-1.3); Total Protein 6.3 g/dL (6.3-8.2)
--- NOTE | 2019-05-12 09:59 | XR ---
EXAMINATION TYPE: XR chest 2V DATE OF EXAM: 05/12/2019 COMPARISON: Prior chest x-ray 01/12/2015 HISTORY: Presurgical, cough TECHNIQUE: Frontal and lateral views of the chest are obtained. FINDINGS: There is no focal air space opacity, pleural effusion, or pneumothorax seen. The cardiac silhouette size is within normal limits. The osseous structures are intact. IMPRESSION: No acute cardiopulmonary process.
== END | disposition home or self-care (01) ==
LOC: LABPAT 07:20
PROVIDERS: ATTEND Urology
DX: Z01.818 Encounter for other preprocedural examination (principal); Z01.812 Encounter for preprocedural laboratory examination; C64.2 Malignant neoplasm of left kidney, except renal pelvis; R05 Cough; R53.83 Other fatigue
CPT/HCPCS: 71046; 80053; 81003; 85025

== ENCOUNTER 2019-05-19 06:02 | Inpatient (IN) | payer OTHER ==
--- NOTE | 2019-05-18 13:33 | P.GSHP ---
History of Present Illness H&P Date: 05/18/19 53 yo male who recently had sever left flank pain c/w a stone passage Had a ct scan that showed a 5 cm deep left parenchymal mass c/w a renal cell carcinoma. The ct scan was reviewed with the patient as well as the multiple surgical options He had a negative metastatic w/u He comes for a left radical nephrectomy The right kidney appears to function well. - Constitutional Constitutional: Denies chills, Denies fever - EENT Eyes: denies blurred vision, denies pain Ears, nose, mouth and throat: Denies headache, Denies sore throat - Cardiovascular Cardiovascular: Denies chest pain, Denies shortness of breath - Respiratory Respiratory: Denies cough, Denies 7 - Gastrointestinal Gastrointestinal: Denies abdominal pain, Denies diarrhea, Denies nausea, Denies vomiting - Genitourinary (Female) Genitourinary: Denies dysuria, Denies hematuria - Genitourinary (Male) Genitourinary: Denies dysuria, Denies hematuria - Musculoskeletal Musculoskeletal: Denies myalgias - Integumentary Integumentary: Denies pruritus, Denies rash - Neurological Neurological: Denies numbness, Denies weakness - Psychiatric Psychiatric: Denies anxiety, Denies depression - Endocrine Endocrine: Denies fatigue, Denies weight change Past Medical History Past Medical History: Cancer, GERD/Reflux, Skin Disorder, Sleep Apnea/CPAP/BIPAP Additional Past Medical History / Comment(s): psoriasis, has cpap, cancer lt kidney History of Any Multi-Drug Resistant Organisms: None Reported Past Surgical History: Hernia Repair Additional Past Surgical History / Comment(s): colonoscopy Past Anesthesia/Blood Transfusion Reactions: Motion Sickness Additional Past Anesthesia/Blood Transfusion Reaction / Comment(s): . Smoking Status: Former smoker - Past Family History Mother Family Medical History: No Reported History Medications and Allergies Home Medications Medication Instructions Recorded Confirmed Type Loratadine-Pseudoeph 10-240 mg 1 tab PO DAILY 10/08/17 05/12/19 History [Claritin-D 24 Hr] Esomeprazole Magnesium [NexIUM] 40 mg PO DAILY 02/11/19 05/12/19 History Oxymetazoline 0.05% Nasl [facility] 1 spray EA NOSTRIL BID PRN 04/06/19 05/12/19 History [Afrin 0.05% Nasal [facility]] Allergies Allergy/AdvReac Type Severity Reaction Status Date / Time No Known Allergies Allergy Verified 05/12/19 10:09 Surgical - Exam - General well developed, well nourished, no distress - Eyes PERRL - ENT no hearing loss - Neck no masses, trachea midline - Respiratory normal expansion, normal respiratory effort - Cardiovascular Rhythm: regular - Abdomen Abdomen: soft, non tender - Genitourinary normal penis with no external lesions, testicles present - Integumentary no rash, no growths - Neurologic normal coordination, normal sensation - Musculoskeletal normal gait, normal posture - Psychiatric oriented to time, oriented to person, oriented to place, speech is normal, memory intact Results - Imaging Chest x-ray: report reviewed, image reviewed CT scan - abdomen: report reviewed, image reviewed CT scan - pelvis: report reviewed, image reviewed Assessment and Plan Assessment: Impression; Left renal mass c/w renal cell carcinoma Plan: Left radical nephrectomy
[~2019-05-19 06:02] MED LIST changes: -HEPARIN SODIUM,PORCINE 5,000 UNIT/ML 1 ML VIAL SQ ONE; +HYDROmorphone 0.5 MG/0.5 ML SYRINGE IVP PRN; -LACTATED RINGERS 1,000 ML IV SCH; -SCOPOLAMINE 1.5MG/72HR PATCH TRANSDERM ONE
[2019-05-19] MEDS: LACTATED RINGERS 1,000 ML IV SCH (07:03)
[2019-05-19] MEDS ORDERED: LIDOCAINE 1% 20 ML VIAL (10MG/ML) FOR IV START INTRADERMA ONE (07:04)
[2019-05-19] MEDS ORDERED: fentaNYL (PF) 50 MCG/ML 2 ML AMP IVP ONE ×2 (07:08→07:15)
[2019-05-19] MEDS ORDERED: MIDAZOLAM (PF) 2 MG/2 ML VIAL IVP ONE (07:14)
[2019-05-19] MEDS ORDERED: SCOPOLAMINE 1.5MG/72HR PATCH TRANSDERM ONE (07:17)
[2019-05-19] MEDS ORDERED: PHENYLEPHRINE-0.9% NACL SYG 1 MG/10 ML SYRINGE ONE (07:31)
[2019-05-19] MEDS ORDERED: GLYCOPYRROLATE 0.2 MG/ML 2 ML VIAL ONE (07:31)
[2019-05-19] MEDS ORDERED: SUCCINYLCHOLINE CHLORIDE VIAL 200 MG/10 ML VIAL IV ONE (07:31)
[2019-05-19] MEDS ORDERED: LIDOCAINE 1% INJ 10MG/ML (20 ML MDV) ONE (07:31)
[2019-05-19] MEDS ORDERED: fentaNYL (PF) 50 MCG/ML 2 ML AMP ONE (07:31)
[2019-05-19] MEDS ORDERED: PROPOFOL 10 MG/ML 20 ML VIAL IV ONE (07:31)
[2019-05-19] MEDS ORDERED: ROCURONIUM BROMIDE 10 MG/ML 10 ML VIAL IV ONE (07:31)
[2019-05-19] MEDS ORDERED: NEOSTIGMINE 1 MG/ML 10 ML VIAL ONE (07:31)
[2019-05-19] MEDS ORDERED: diphenhydrAMINE 50 MG/ML 1 ML VIAL IVP PRN (07:32)
[2019-05-19] MEDS ORDERED: NALBUPHINE 10 MG/ML (1 ML AMP) IV PRN (07:32)
[2019-05-19] MEDS ORDERED: NALOXONE 0.4 MG/ML 1 ML VIAL IV PRN (07:32)
[2019-05-19] MEDS ORDERED: LACTATED RINGERS 1,000 ML IV ONE (09:35)
--- NOTE | 2019-05-19 10:14 | P.OP ---
Date of Procedure: 05/19/19 Preoperative Diagnosis: Left renal mass Postoperative Diagnosis: Same Procedure(s) Performed: Left radical nephrectomy Anesthesia: GETA, epidural Surgeon: Deepak Madera Plate Conditioner #1: Helio Mccarthy Estimated Blood Loss (ml): 400 Pathology: other (Kidney) Condition: stable Disposition: PACU Indications for Procedure: The patient is a 53-year-old gentleman who recently passed a kidney stone. The computed tomography scan showed a 5 cm left lower pole solid renal mass deep into the kidney. He comes for radical nephrectomy. Alternative options have been outlined discussed with this patient. Description of Procedure: The patient is brought to the operating suite. He is given epidural followed by general endotracheal anesthesia. Carpenter catheters introduced sterilely. He is prepped and draped sterilely. A left subcostal incision is made. The oblique fascias and rectus fascias are opened. The peritoneum was opened. The colon was identified in the teres in size and the colon was reflected medially. Identify drug's fascia. I followed Road's fascia superiorly and medially and reflect the colon off it. I then dissect down to the knee medially and identify the left renal vein. I cleaned the adventitia off the vein. The adrenal vein is identified and taken between 2-0 silk ties. There is a posterior inferior lumbar vein and taken between 2-0 silk ties. Once I freed the renal vein I then tediously look for and identify the left renal artery and a small branch. These are taken between 2-0 silk ties and hemoclips. I then take the renal vein between 2-0 silk ties and suture ligatures and transect it. I then dissect superiorly inferior to the adrenal gland taking vessels between hemoclips I incised the peritoneum underneath the pancreas and reflect the kidney and drug's off the pancreas and splenic vein. I move medially dissecting the connective tissue off the body wall. Inferiorly I transect the ureter and gonadal vein between 2-0 silk ties. Posteriorly I left the kidney off the body wall and eventually deliver the kidney from the wound. The patient was very deep and big. The kidney and drug's fascia is very large. The blood loss is about 400 mL. SPECT for and control any bleeding. The bowel is then allowed to fall back in the left upper quadrant. The wounds closed in 3 layers and #1 Vicryl. The skin is stapled. Blood loss was approximately 400 mL Impression successful left radical nephrectomy.
[2019-05-19] MEDS: ROPIVACAINE 250 MG, HYDROMORPHONE (PF) 5 MG in SODIUM CHLORIDE 0.9% 200 ML EPIDURAL PRN (10:34)
[2019-05-19 13:10] VITALS: BMI 42.9
[2019-05-19] MEDS: DEXTROSE 5%-0.45% NACL 1,000 ML IV SCH ×2 (17:28→19:21)
[2019-05-20] MEDS: LACTATED RINGERS 1,000 ML IV SCH (02:32)
[2019-05-20] MEDS: DEXTROSE 5%-0.45% NACL 1,000 ML IV SCH ×2 (02:32→10:51)
--- NOTE | 2019-05-20 07:00 | P.PN ---
Subjective Progress Note Date: 05/20/19 The patient is in his first postoperative day from a left radical nephrectomy. He is feeling well. His pain is controlled with epidural with minimal side effects. His urine output is good. His vital signs are stable. His wound is dry. He will ambulate today. The epidural remain in place another 24-48 hours as well as Carpenter catheter during this time. I'll continue to clear liquid diet today. Objective - Vital Signs Vital signs: Vital Signs Temp 98.4 F 05/20/19 01:53 Pulse 106 H 05/20/19 01:53 Resp 18 05/20/19 01:53 BP 95/59 05/20/19 01:53 Pulse Ox 92 L 05/20/19 01:53 Intake & Output 05/19/19 05/19/19 05/20/19 06:59 18:59 06:59 Intake Total 1975 1750 Output Total 570 700 Balance 1405 1050 Intake: IV 1575 Dextrose 5%-0.45% NaCl 1, 375 000 ml @ 125 mls/hr IV . Q8H FABY Rx#:[id number] Intake, IV Titration 1250 Amount Dextrose 5%-0.45% NaCl 1, 1250 000 ml @ 125 mls/hr IV . Q8H FABY Rx#:[id number] Oral 400 500 Output: Urine 170 700 Estimated Blood Loss 400 Other: Voiding Method Indwelling Catheter Indwelling Catheter
[2019-05-20] MEDS ORDERED: PANTOPRAZOLE 40 MG TABLET PO SCH (07:30)
[2019-05-20 08:16] LABS: Calcium 8.3 mg/dL (8.4-10.2)
[2019-05-20] MEDS: ONDANSETRON 4 MG/2 ML VIAL IVP PRN (08:18)
--- NOTE | 2019-05-20 08:34 | P.PN ---
Progress Note - Text Date: 05/20/2019 Time: 715 The patient is status post, left nephrectomy, postoperative day number 1 The patient has no complaints headache. The patient had 1 brief bout of nausea, vomiting today but that has subsided. The patient does not complain of any lower extremity numbness or weakness. The patient is incurring some minimal itching today. The epidural is running at 8 mL per hour. The epidural will be maintained and adjusted as needed.
[2019-05-20] MEDS: LORATADINE-PSEUDOEPH 5-120 MG 1 EACH TAB.ER.12H PO PRN (08:46)
[2019-05-20] MEDS: NEXIUM 40 MG PO SCH (10:04)
[2019-05-20] MEDS: ROPIVACAINE 250 MG, HYDROMORPHONE (PF) 5 MG in SODIUM CHLORIDE 0.9% 200 ML EPIDURAL PRN (15:27)
[2019-05-21] MEDS ORDERED: ACETAMINOPHEN TAB 325 MG TAB PO PRN (02:21)
[2019-05-21] MEDS: DEXTROSE 5%-0.45% NACL 1,000 ML IV SCH ×4 (04:14→16:52)
--- NOTE | 2019-05-21 07:33 | P.PN ---
Subjective Progress Note Date: 05/21/19 The patient is in his second postoperative day from a left radical nephrectomy. He feels well. There is minimal discomfort. His wound looks good. He has had some low-grade temperature which is due to atelectasis. His extremities are okay. I will continue to encourage incentive spirometry and ambulation. Continue with epidural 24 hours longer. He will ambulate. The plan will be to remove the catheter and epidural in the morning. Hopefully home by the weekend. Objective - Vital Signs Vital signs: Vital Signs Temp 100.5 F H 05/21/19 01:40 Pulse 105 H 05/21/19 01:40 Resp 18 05/21/19 01:40 BP 108/70 05/21/19 01:40 Pulse Ox 91 L 05/21/19 01:40 Intake & Output 05/20/19 05/21/19 05/21/19 18:59 06:59 18:59 Intake Total 700 71.8 Output Total 0 Balance 700 -1977.2 Intake: Intake, IV Titration 71.8 Amount Ropivacaine 250 mg 71.8 Hydromorphone (Pf) 5 mg In Sodium Chloride 0.9% 200 ml @ Per Protocol EPIDURAL .Q0M PRN Rx#: [id number] Oral 700 Output: Urine 2049 Other: Voiding Method Indwelling Catheter # Voids 3 - Labs CBC & Chem 7: 05/20/19 07:04 Labs: Abnormal Lab Results - Last 24 Hours (Table) 05/20/19 Range/Units 07:04 Sodium 134 L (137-145) mmol/L BUN 21 H (9-20) mg/dL Creatinine 1.54 H (0.66-1.25) mg/dL Glucose 107 H (74-99) mg/dL Calcium 8.3 L (8.4-10.2) mg/dL
[2019-05-21] MEDS: LACTATED RINGERS 1,000 ML IV SCH (08:09)
[2019-05-21] MEDS: LORATADINE-PSEUDOEPH 5-120 MG 1 EACH TAB.ER.12H PO PRN (08:09)
[2019-05-21] MEDS: NEXIUM 40 MG PO SCH (08:09)
--- NOTE | 2019-05-21 08:32 | P.PN ---
Progress Note - Text 05/21 646am 53-year-old male status post exploratory lap. She has an epidural catheter for postop pain control with a VAS of 1, patient has done minimal ambulation. Plan to ground infusion for another day.
[2019-05-21] MEDS: ONDANSETRON 4 MG/2 ML VIAL IVP PRN (17:34)
[2019-05-22] MEDS: ROPIVACAINE 250 MG, HYDROMORPHONE (PF) 5 MG in SODIUM CHLORIDE 0.9% 200 ML EPIDURAL PRN (00:45)
[2019-05-22] MEDS: DEXTROSE 5%-0.45% NACL 1,000 ML IV SCH ×3 (06:09→22:00)
[2019-05-22] MEDS: LACTATED RINGERS 1,000 ML IV SCH (06:09)
[2019-05-22] MEDS: ONDANSETRON 4 MG/2 ML VIAL IVP PRN (06:54)
[2019-05-22] MEDS: NEXIUM 40 MG PO SCH (08:06)
[2019-05-22] MEDS ORDERED: HYDROcodone/APAP 7.5-325MG 1 EACH TAB PO PRN (10:36)
[2019-05-22] MEDS ORDERED: MORPHINE SULFATE 2 MG/ML SYRINGE IVP PRN (10:37)
--- NOTE | 2019-05-22 10:38 | P.PN ---
Subjective Progress Note Date: 05/22/19 The patient is in his third postoperative day. His vital signs are stable. His pulmonary fever has disappeared. He has had some nausea and vomiting. His abdomen is soft. His wound looks good. He is passing some gas. A new his epidural. I'll continue to ambulate him. We'll continue to support him. His Carpenter catheter be removed. This responds over the next 24 hours. Pathology is pending. Objective - Vital Signs Vital signs: Vital Signs Temp 98.2 F 05/22/19 06:45 Pulse 89 05/22/19 06:45 Resp 15 05/22/19 07:50 BP 108/65 05/22/19 06:45 Pulse Ox 95 05/22/19 06:45 Intake & Output 05/21/19 05/22/19 05/22/19 18:59 06:59 18:59 Intake Total 500 136.667 Output Total 1350 Balance 500 -1213.333 Intake: Intake, IV Titration 136.667 Amount Ropivacaine 250 mg 136.667 Hydromorphone (Pf) 5 mg In Sodium Chloride 0.9% 200 ml @ Per Protocol EPIDURAL .Q0M PRN Rx#: [id number] Oral 500 Output: Urine 1350 Other: Voiding Method Indwelling Catheter Indwelling Catheter # Voids 3 - Labs CBC & Chem 7: 05/20/19 07:04
[2019-05-23] MEDS: DEXTROSE 5%-0.45% NACL 1,000 ML IV SCH (02:30)
[2019-05-23] MEDS: LACTATED RINGERS 1,000 ML IV SCH (03:32)
--- NOTE | 2019-05-23 07:07 | P.DS ---
Providers Date of admission: 05/19/19 06:02 Attending physician: Deepak Madera Primary care physician: [facility] Course: The patient was admitted to the hospital 05/19/2019 for a left radical nephrectomy for a larger renal tumor. He underwent this without difficulty. Postoperatively did well. His pain was managed by his epidural. Catheters removed as was epidural on the third postoperative day. He has voided. His pain is minimal. He is tolerating a regular diet. He is ambulating. His urine output is good. His vital signs are stable. He is passing gas. His abdomen was soft and his wound looks good. His pathology report is pending. He is ready for discharge home. He'll follow-up in the office next week. He will resume his home medications. His activities light. Been instructed to call the office at any time with problems. Patient Condition at Discharge: Good Plan - Discharge Summary Discharge Rx Participant: Yes New Discharge Prescriptions: No Action Loratadine-Pseudoeph 10-240 mg [Claritin-D 24 Hr] 1 tab PO DAILY Esomeprazole Magnesium [NexIUM] 40 mg PO DAILY Oxymetazoline 0.05% Nasl [facility] [Afrin 0.05% Nasal [facility]] 1 spray EA NOSTRIL BID PRN PRN Reason: Nasal Congestion Discharge Medication List Loratadine-Pseudoeph 10-240 mg [Claritin-D 24 Hr] 1 tab PO DAILY 10/08/17 [History] Esomeprazole Magnesium [NexIUM] 40 mg PO DAILY 02/11/19 [History] Oxymetazoline 0.05% Nasl [facility] [Afrin 0.05% Nasal [facility]] 1 spray EA NOSTRIL BID PRN 04/06/19 [History] Follow up Appointment(s)/Referral(s): Deepak Madera MD [STAFF PHYSICIAN] - 1 Week Discharge Disposition: HOME SELF-CARE
[2019-05-23] MEDS: NEXIUM 40 MG PO SCH (07:53)
[2019-05-23 08:02] VITALS: BP 132/61; PULSE 79; RESP 16; TEMP 97.9
--- NOTE | 2019-05-24 15:00 | P.PN ---
Progress Note - Text Progress Note Date: 05/24/19 (Telephone encounter) Patient called regarding persistent numbness and tingling in lower extremities following epidural removal. Patient reports that in PACU on the day of his surgery, 05/19/2019, he has experienced burning pain in bilateral lower extremities. Following epidural removal on 01/20/2019, this has remained about the same, it has not gotten significantly worse. He does note numbness and tingling in bilateral feet as well since epidural was removed. He denies lower extremity weakness, although endorses that his legs feel tired, denies bowel or bladder incontinence, fevers, chills, night sweats. I advised him that this could be due to a number of causes, including positioning during surgery or a new herniated disc or peripheral neuropathy. I advised him that this was unlikely to be related to epidural placement, although not impossible. I advised him of red flag signs including weakness, bowel and bladder incontinence, fevers which would arise if he were to develop an epidural abscess or hematoma. I told him to monitor his signs and symptoms over the next couple of weeks, and if it did not resolve, to report to his primary care physician who can then order an MRI and potentially refer him to a pain physician. I informed him that we would be happy to see him in our pain clinic in [place] if needed. All questions answered. Patient was grateful for the explanation. I told him to contact us if he had further questions.
--- NOTE | 2019-05-26 08:26 | CDI ---
Documentation Clarification Form Date: 05/26/2019 8:23:00 AM From: Anais Enciso Phone: If you have a question regarding this query, please contact Manisha Barrera at [phone] between 8am and 5pm. Admit Date: 05/19/2019 6:02:00 AM Patient Name: Shad Walker Visit Number: [id number] Discharge Date: 05/23/2019 11:15:00 AM ATTENTION: The Clinical Documentation Specialists (CDI) and [facility] Coding Staff appreciate your assistance in clarifying documentation. Please respond to the clarification below the line at the bottom and electronically sign. The CDI & [facility] Coding staff will review the response and follow-up if needed. Please note: Queries are made part of the Legal Health Record. If you have any questions, please contact the author of this message via ITS. Dr. Deepak Madera The final diagnosis of the pathology report states: Clear cell (conventional) renal cell carcinoma confined to the kidney. Documentation states: Left renal mass c/w renal cell carcinoma is documented in the H&P. Larger renal tumor is documented in the discharge summary. Patient history/risk factors: Renal tumor. Clinical Indicators: Recent CT scan for flank pain c/w stone passage showed a 5 cm deep left parenchymal mass. Treatment: Radical lefft nephrectomy. In your professional opinion, do you agree with the pathology report specifying the left renal tumor as renal cell carcinoma? Yes No Other (please specify) Unable to determine MTDD
--- NOTE | 2019-05-28 12:48 | CDI ---
Documentation Clarification Form Date: 05/28/19 From: Anais Enciso Phone: If you have a question regarding this query, please contact Manisha Barrera at [phone] between 8am and 5pm. Admit Date: 05/19/2019 6:02:00 AM Patient Name: Shad Walker Visit Number: [id number] Discharge Date: 05/23/2019 11:15:00 AM ATTENTION: The Clinical Documentation Specialists (CDI) and [facility] Coding Staff appreciate your assistance in clarifying documentation. Please respond to the clarification below the line at the bottom and electronically sign. The CDI & [facility] Coding staff will review the response and follow-up if needed. Please note: Queries are made part of the Legal Health Record. If you have any questions, please contact the author of this message via ITS. Dr. Deepak Madera Thank you for signing the previous query. Please document a response before signing this query. The final diagnosis of the pathology report states: Clear cell (conventional) renal cell carcinoma confined to the kidney. Documentation states: Left renal mass c/w renal cell carcinoma is documented in the H&P. Larger renal tumor is documented in the discharge summary. Patient history/risk factors: Renal tumor. Clinical Indicators: Recent CT scan for flank pain c/w stone passage showed a 5 cm deep left parenchymal mass. Treatment: Radical lefft nephrectomy. In your professional opinion, do you agree with the pathology report specifying the left renal tumor as renal cell carcinoma? Yes No Other (please specify) Unable to determine yes MTDD
== END 2019-05-23 11:15 | disposition home or self-care (01) | DRG 657 ==
LOC: 2ORMAIN 06:02 → 4SSUR 10:16
PROVIDERS: ADMIT Urology; ATTEND Urology
PROC: 0TT10ZZ Resection of Left Kidney, Open Approach (ICD-10-PCS; principal; 2019-05-19 07:30)
DX: C64.2 Malignant neoplasm of left kidney, except renal pelvis (principal); J98.11 Atelectasis; G47.33 Obstructive sleep apnea (adult) (pediatric); K21.9 Gastro-esophageal reflux disease without esophagitis; L40.9 Psoriasis, unspecified; R20.2 Paresthesia of skin; R50.9 Fever, unspecified; R20.0 Anesthesia of skin; R11.2 Nausea with vomiting, unspecified; Z87.891 Personal history of nicotine dependence; Z87.442 Personal history of urinary calculi
CPT/HCPCS: 80048; 86850; 86900; 86901; 88307

== ENCOUNTER 2019-05-26 16:33 | Inpatient (IN) | payer OTHER ==
[2019-05-26] MEDS ORDERED: MORPHINE SULFATE 4 MG/ML SYRINGE IVP STA (19:13)
[2019-05-26 20:07] LABS: Basophils % (A) 0 %; Eosinophils # (A) 0.6 k/uL (0-0.7); Eosinophils % (A) 5 %; HCT 40.9 % (39.0-53.0); HGB 13.8 gm/dL (13.0-17.5); Lymphocytes # (A) 1.9 k/uL (1.0-4.8); Lymphocytes % (A) 16 %; MCH 29.1 pg (25.0-35.0); MCHC 33.8 g/dL (31.0-37.0); MCV 86.1 fL (80.0-100.0); Mean Platelet Volume 6.8; Monocytes # (A) 0.7 k/uL (0-1.0); Monocytes % (A) 6 %; Neutrophils # (A) 8.8 k/uL (1.3-7.7); Neutrophils % (A) 72 %; Platelet Count 521 k/uL (150-450); RBC 4.75 m/uL (4.30-5.90); RDW 15.4 % (11.5-15.5); WBC 12.1 k/uL (3.8-10.6)
[2019-05-26 20:13] LABS: Albumin 3.6 g/dL (3.5-5.0); Potassium 4.5 mmol/L (3.5-5.1); Total Bilirubin 0.2 mg/dL (0.2-1.3); Total Protein 6.5 g/dL (6.3-8.2)
--- NOTE | 2019-05-26 20:20 | ED ---
Extremity Problem HPI - General Chief complaint: Extremity Problem,Nontraumatic Stated complaint: POST OP PROBLEM FROM EPIDURAL BOTH LEGS Time Seen by Provider: 05/26/19 16:59 Source: patient Mode of arrival: wheelchair Limitations: no limitations - History of Present Illness Initial comments: Patient is 51-year-old male presents emergency Department with a chief complaint of pain after a lumbar puncture. Patient reports 7 days ago he had a nephrecto my on the left side and had a lumbar puncture. Patient reports at the procedure he has developed bilateral lower extremity numbness with intermittent tingling. Patient also reports gradually worsening gait instability. Patient reports he is unable to ambulate without his walker is a recently. Patient reports he is unable to feel the right plantar aspect of his right foot. Patient denies any u rinary or bladder incontinence. Patient reports pain on the lateral aspect of bilateral upper extremities that is exacerbated with rotation of the back. Patient denies headaches, fever, night sweats or chills. Patient was advised to follow with primary care and obtain an MRI if the symptoms do not improve within a week. Patient is concerned that his level obviate able to take care of him due to his decreasing ability to ambulate. - Related Data Home Medications Medication Instructions Recorded Confirmed Loratadine-Pseudoeph 10-240 mg 1 tab PO DAILY 10/08/17 05/26/19 [Claritin-D 24 Hr] Esomeprazole Magnesium [NexIUM] 40 mg PO DAILY 02/11/19 05/26/19 Allergies Allergy/AdvReac Type Severity Reaction Status Date / Time naproxen [From Aleve] Allergy Dyspnea Verified 05/26/19 17:43 Review of Systems ROS Statement: Those systems with pertinent positive or pertinent negative responses have been documented in the HPI. ROS Other: All systems not noted in ROS Statement are negative. Past Medical History Past Medical History: Cancer, GERD/Reflux, Skin Disorder, Sleep Apnea/CPAP/BIPAP Additional Past Medical History / Comment(s): psoriasis, has cpap, cancer lt kidney,kidney stones History of Any Multi-Drug Resistant Organisms: None Reported Past Surgical History: Hernia Repair Additional Past Surgical History / Comment(s): colonoscopy, kidney removal Past Anesthesia/Blood Transfusion Reactions: Motion Sickness Additional Past Anesthesia/Blood Transfusion Reaction / Comment(s): . Past Psychological History: No Psychological Hx Reported Smoking Status: Former smoker Past Alcohol Use History: Occasional Past Drug Use History: None Reported - Past Family History Mother Family Medical History: No Reported History General Exam Limitations: no limitations General appearance: alert, in no apparent distress Head exam: Present: atraumatic, normocephalic, normal inspection Eye exam: Present: normal appearance, PERRL, EOMI Pupils: Present: normal accommodation ENT exam: Present: normal exam, mucous membranes moist, normal external ear exam Neck exam: Present: normal inspection, full ROM Respiratory exam: Present: normal lung sounds bilaterally Cardiovascular Exam: Present: regular rate, normal rhythm, normal heart sounds GI/Abdominal exam: Present: other (20 cm incision site on left side of the abdomen) Extremities exam: Present: normal inspection, full ROM, normal capillary refill, other (+2 dorsalis pedis and posterior tibialis bilaterally.) Back exam: Present: normal inspection, full ROM Neurological exam: Present: alert, oriented X3, reflexes normal (+2 patellar reflex bilaterally), other (Lower extremity strength +5 bilaterally. Decreased light touch sensation). Absent: abnormal gait, motor sensory deficit Psychiatric exam: Present: normal affect, normal mood Skin exam: Present: warm, intact, normal color Course Vital Signs 05/26/19 17:02 Temperature 98.6 F Pulse Rate 96 Respiratory 18 Rate Blood Pressure 147/91 O2 Sat by Pulse 96 Oximetry Medical Decision Making - Medical Decision Making Patient is 53-year-old male presenting to emergency Department with chief complaint of numbness and tingling after lumbar puncture. Based on physical exa mination the patient does appear to have decreased sensation in bilateral lower trauma and is. Patient is vascularly intact. Patient does not appear to have any muscle weakness. is concerned that she will not be able to care for the patient at home due to worsening ability to ambulate. is also concerned that the patient will not be able to obtain an MRI for prolonged periods of time. Patient will be admitted for further management. Patient of morphine for pain control. Case discussed with Dr. Whitmore. Admitting physician is Dr. Hoyt. - Lab Data Result diagrams: 05/26/19 19:50 Lab Results 05/26/19 Range/Units 19:50 WBC 12.1 H (3.8-10.6) k/uL RBC 4.75 (4.30-5.90) m/uL Hgb 13.8 (13.0-17.5) gm/dL Hct 40.9 (39.0-53.0) % MCV 86.1 (80.0-100.0) fL MCH 29.1 (25.0-35.0) pg MCHC 33.8 (31.0-37.0) g/dL RDW 15.4 (11.5-15.5) % Plt Count 521 H (150-450) k/uL Neutrophils % 72 % Lymphocytes % 16 % Monocytes % 6 % Eosinophils % 5 % Basophils % 0 % Neutrophils # 8.8 H (1.3-7.7) k/uL Lymphocytes # 1.9 (1.0-4.8) k/uL Monocytes # 0.7 (0-1.0) k/uL Eosinophils # 0.6 (0-0.7) k/uL Basophils # 0.0 (0-0.2) k/uL Disposition Clinical Impression: Numbness and tingling of both lower extremities Disposition: ADMITTED IP TO THIS [facility] Condition: Stable Instructions (If sedation given, give patient instructions): Lumbar Radiculopathy (ED) Additional Instructions: Patient will be admitted for further management. Is patient prescribed a controlled substance at d/c from ED?: No Referrals: Gee Logan DO [Primary Care Provider] - 1-2 days Time of Disposition: 20:27
[2019-05-26] MEDS ORDERED: NALOXONE 0.4 MG/ML 1 ML VIAL IV PRN (22:26)
[2019-05-27] MEDS: MORPHINE SULFATE 4 MG/ML SYRINGE IV PRN ×4 (00:05→22:13)
[2019-05-27] MEDS ORDERED: DEXAMETHASONE 4 MG TAB PO PRN (10:24)
--- NOTE | 2019-05-27 10:35 | P.CNNES ---
History of Present Illness Consult date: 05/27/19 Requesting physician: Therese Mejia Reason for Consult: Weakness Chief complaint: BLE numbness/weakness History of Present Illness: This is a 53 RH male who underwent nephrectomy on 05/19/19. He underwent some type of spinal anesthesia on that day, and according to the patient, the needle was left in until 05/22/19. He went into the procedure without any neurological symptoms. After he woke up, he felt a numb and burning sensation that primarily goes down the anterolateral thigh bilaterally. He also has some numbness on the solar aspect of his feet. He is able to walk. No bowel/bladder incontinence or saddle anesthesia, but he does believe he may have some urinary urgency. Denies other focal neuro c/o such as decreased level or loss of consciousness, postural headache, seizure, changes in vision/hearing, facial numbness or droop, vertigo, dysarthria, dysphagia, aphasia, other focal numbness/weakness not mentioned above, tremors or ataxia. Review of Systems I have performed a 14-point organ ROS with patient; pertinents are as per HPI. Past Medical History Past Medical History: Cancer, GERD/Reflux, Skin Disorder, Sleep Apnea/CPAP/BIPAP Additional Past Medical History / Comment(s): psoriasis, has cpap, cancer lt kidney,kidney stones History of Any Multi-Drug Resistant Organisms: None Reported Past Surgical History: Hernia Repair Additional Past Surgical History / Comment(s): colonoscopy, kidney removal Past Anesthesia/Blood Transfusion Reactions: Motion Sickness Additional Past Anesthesia/Blood Transfusion Reaction / Comment(s): . Past Psychological History: No Psychological Hx Reported Smoking Status: Former smoker Past Alcohol Use History: Occasional Additional Past Alcohol Use History / Comment(s): quit smoking approx 2000, smoked approx 20 yrs <1ppd Past Drug Use History: None Reported - Past Family History Mother Family Medical History: No Reported History Medications and Allergies Home Medications Medication Instructions Recorded Confirmed Type Loratadine-Pseudoeph 10-240 mg 1 tab PO DAILY 10/08/17 05/26/19 History [Claritin-D 24 Hr] Esomeprazole Magnesium [NexIUM] 40 mg PO DAILY 02/11/19 05/26/19 History Allergies Allergy/AdvReac Type Severity Reaction Status Date / Time naproxen [From Aleve] Allergy Dyspnea Verified 05/26/19 17:43 Physical Examination - Vital Signs Vital Signs: Vital Signs Temp Pulse Pulse Resp BP BP Pulse Ox 05/27/19 07:00 97.8 F 82 16 129/80 97 05/26/19 23:53 98.8 F 78 15 125/76 97 05/26/19 23:09 87 16 123/77 97 05/26/19 21:54 89 16 126/76 96 05/26/19 17:02 98.6 F 96 18 147/91 96 Intake and Output 05/26/19 05/27/19 05/27/19 22:59 06:59 14:59 Other: Voiding Method Toilet # Voids 1 Weight 128.367 kg Gen NAD Pleasant and cooperative HEENT NCAT Sclera without icterus O/P clear Neck Supple No carotid bruit Cor RRR no m/r/g Lungs CTAB Abd Soft NTND +BS Ext Warm to touch No edema Neuro MS A+Ox4 Normal fluency Able to follow all commands CN PERRL VFF no APD EOMI no nystagmus or KENDRA No facial asymmetry [place]'s symmetric Hearing intact to normal voice bilaterally Speech not dysarthric Equal elevation of palate Tongue midline Sym shrug and SCM bilaterally Motor Normal bulk/tone No pronator or leg drift No tremors Strength 5/5 sym throughout Sens Decreased sensation to the anterolateral thigh bilaterally L2/L3 distribution No neglect or extinction Coord No dysmetria on FTN bilaterally DTRs 2+/4 sym throughout Toes downgoing bilaterally No clonus at achilles Gait Deferred Results - Laboratory Findings CBC and BMP: 05/26/19 19:50 05/26/19 19:50 Abnormal Lab Findings: Abnormal Labs 05/26/19 05/26/19 19:50 19:50 WBC 12.1 H Plt Count 521 H Neutrophils # 8.8 H Creatinine 1.29 H Glucose 109 H Assessment and Plan Assessment: BLE numbness/paresthesias s/p spinal anesthesia (per history from patient). Area of concern as pointed out by patient is in the L2/L3 distribution. Plan: -MRI L-spine w wo sarahi after alden taken out by surgery -If L-spine negative, will need outpatient EMG/NCS -PT/OT -DVT prophylaxis -d/w patient and primary team in detail. All questions answered. Thank you for this consultation. Please call with ?. Time with Patient: Greater than 30 (Time spent in direct patient care, greater than 50% of which was spent in deka-uv-yunt counseling and coordination of care: 70 minutes)
--- NOTE | 2019-05-27 11:47 | P.CONS ---
History of Present Illness - History of Present Illness 53-year-old a pleasant female came in after a left hip injury after mechanical fall secondary to drinking alcohol, after couple of from and coke, patient doesn't drink and the lipase because of which I'm I am discontinuing alcohol CIWA protocol. Patient is complaining of pain in the left ear.. Patient had a left hip fracture will undergo surgery today patient doesn't have any heart disease history will obtain echocardiogram and this to still time we can get the echocardiogram done are as patient can go for surgery patient has good function of the at home rather than 4 mets, does smoke about a pack a day which is only risk factor for the patient. Patient has left intertrochanteric fracture patient is low to intermediate risk risk is basically because of age and smoking history. EKG showed some nonspecific ST-T wave changes because of which I am opting echocardiogram although we may not need to wait for the echocardiogram recent benefits were explained to the patient. Patient is agreeable for surgery. . Review of Systems REVIEW OF SYSTEMS: CONSTITUTIONAL: No fever, no malaise, no fatigue. HEENT: No recent visual problems or hearing problems. Denied any sore throat. CARDIOVASCULAR: No chest pain, orthopnea, PND, no palpitations, no syncope. PULMONARY: No shortness of breath, no cough, no hemoptysis. GASTROINTESTINAL: No diarrhea, no nausea, no vomiting, no abdominal pain. NEUROLOGICAL: No headaches, no weakness, no numbness. HEMATOLOGICAL: Denies any bleeding or petechiae. GENITOURINARY: Denies any burning micturition, frequency, or urgency. MUSCULOSKELETAL/RHEUMATOLOGICAL: Pain in the left hip. ENDOCRINE: Denies any polyuria or polydipsia. The rest of the 14-point review of systems is negative. Past Medical History Past Medical History: Cancer, GERD/Reflux, Skin Disorder, Sleep Apnea/CPAP/BIPAP Additional Past Medical History / Comment(s): psoriasis, has cpap, cancer lt kidney,kidney stones History of Any Multi-Drug Resistant Organisms: None Reported Past Surgical History: Hernia Repair Additional Past Surgical History / Comment(s): colonoscopy, kidney removal Past Anesthesia/Blood Transfusion Reactions: Motion Sickness Additional Past Anesthesia/Blood Transfusion Reaction / Comm: . Past Psychological History: No Psychological Hx Reported Smoking Status: Former smoker Past Alcohol Use History: Occasional Additional Past Alcohol Use History / Comment(s): quit smoking approx 2000, smoked approx 20 yrs <1ppd Past Drug Use History: None Reported - Past Family History Mother Family Medical History: No Reported History Medications and Allergies Home Medications Medication Instructions Recorded Confirmed Type Loratadine-Pseudoeph 10-240 mg 1 tab PO DAILY 10/08/17 05/26/19 History [Claritin-D 24 Hr] Esomeprazole Magnesium [NexIUM] 40 mg PO DAILY 02/11/19 05/26/19 History Allergies Allergy/AdvReac Type Severity Reaction Status Date / Time naproxen [From Aleve] Allergy Dyspnea Verified 05/26/19 17:43 Physical Exam Vitals: Vital Signs Temp Pulse Pulse Resp BP BP Pulse Ox 05/27/19 07:00 97.8 F 82 16 129/80 97 05/26/19 23:53 98.8 F 78 15 125/76 97 05/26/19 23:09 87 16 123/77 97 05/26/19 21:54 89 16 126/76 96 05/26/19 17:02 98.6 F 96 18 147/91 96 Intake and Output 05/26/19 05/27/19 05/27/19 22:59 06:59 14:59 Other: Voiding Method Toilet # Voids 1 Weight 128.367 kg PHYSICAL EXAMINATION: GENERAL: The patient is alert and oriented x3, not in any acute distress. Well developed, well nourished. HEENT: Pupils are round and equally reacting to light. EOMI. No scleral icterus. No conjunctival pallor. Normocephalic, atraumatic. No pharyngeal erythema. No thyromegaly. CARDIOVASCULAR: S1 and S2 present. No murmurs, rubs, or gallops. PULMONARY: Chest is clear to auscultation, no wheezing or crackles. ABDOMEN: Soft, nontender, nondistended, normoactive bowel sounds. No palpable organomegaly. MUSCULOSKELETAL: Deferred to orthopedic surgery EXTREMITIES: No cyanosis, clubbing, or pedal edema. NEUROLOGICAL: Gross neurological examination did not reveal any focal deficits. SKIN: No rashes. Results CBC & Chem 7: 05/26/19 19:50 05/26/19 19:50 Labs: Abnormal Lab Results - Last 24 Hours (Table) 05/26/19 05/26/19 Range/Units 19:50 19:50 WBC 12.1 H (3.8-10.6) k/uL Plt Count 521 H (150-450) k/uL Neutrophils # 8.8 H (1.3-7.7) k/uL Creatinine 1.29 H (0.66-1.25) mg/dL Glucose 109 H (74-99) mg/dL Assessment and Plan Plan: Preoperative clearance for left hip surgery: Patient is low to intermediate risk as mentioned above. -Left intertrochanteric fracture management as per primary service -Nicotine abuse: Counseling was provided -COPD without any acute exacerbation next and hyponatremic on abuse: Counseling was provided -Due to prophylaxis as per primary service
--- NOTE | 2019-05-27 12:00 | P.HPIM ---
History of Present Illness 53-year-old pleasant gentleman had a nephrectomy on May. Had a spinal anesthesia on the day and patient was on 9 epidural on May 22. Patient was having tingling numbness and burning sensation at the time radiating down to the anterolateral thigh area bilaterally. That appears to have improved some and the started having worsening symptoms denied any significant back pain. Denied any bowel or bladder incontinence or saddle anesthesia. She denied was complaining of weakness but does have 5/5 strength in both legs. Patient has a spot of numbness in the right foot. Review of Systems REVIEW OF SYSTEMS: CONSTITUTIONAL: No fever, no malaise, no fatigue. HEENT: No recent visual problems or hearing problems. Denied any sore throat. CARDIOVASCULAR: No chest pain, orthopnea, PND, no palpitations, no syncope. PULMONARY: No shortness of breath, no cough, no hemoptysis. GASTROINTESTINAL: No diarrhea, no nausea, no vomiting, no abdominal pain. NEUROLOGICAL: As mentioned above HEMATOLOGICAL: Denies any bleeding or petechiae. GENITOURINARY: Denies any burning micturition, frequency, or urgency. MUSCULOSKELETAL/RHEUMATOLOGICAL: Denies any joint pain, swelling, or any muscle pain. ENDOCRINE: Denies any polyuria or polydipsia. The rest of the 14-point review of systems is negative. Past Medical History Past Medical History: Cancer, GERD/Reflux, Skin Disorder, Sleep Apnea/CPAP/BIPAP Additional Past Medical History / Comment(s): psoriasis, has cpap, cancer lt kidney,kidney stones History of Any Multi-Drug Resistant Organisms: None Reported Past Surgical History: Hernia Repair Additional Past Surgical History / Comment(s): colonoscopy, kidney removal Past Anesthesia/Blood Transfusion Reactions: Motion Sickness Additional Past Anesthesia/Blood Transfusion Reaction / Comment(s): . Past Psychological History: No Psychological Hx Reported Smoking Status: Former smoker Past Alcohol Use History: Occasional Additional Past Alcohol Use History / Comment(s): quit smoking approx 2000, smoked approx 20 yrs <1ppd Past Drug Use History: None Reported - Past Family History Mother Family Medical History: No Reported History Medications and Allergies Home Medications Medication Instructions Recorded Confirmed Type Loratadine-Pseudoeph 10-240 mg 1 tab PO DAILY 10/08/17 05/26/19 History [Claritin-D 24 Hr] Esomeprazole Magnesium [NexIUM] 40 mg PO DAILY 02/11/19 05/26/19 History Allergies Allergy/AdvReac Type Severity Reaction Status Date / Time naproxen [From Aleve] Allergy Dyspnea Verified 05/26/19 17:43 Physical Exam Vitals: Vital Signs Temp Pulse Pulse Resp BP BP Pulse Ox 05/27/19 07:00 97.8 F 82 16 129/80 97 05/26/19 23:53 98.8 F 78 15 125/76 97 05/26/19 23:09 87 16 123/77 97 05/26/19 21:54 89 16 126/76 96 05/26/19 17:02 98.6 F 96 18 147/91 96 Intake and Output 05/26/19 05/27/19 05/27/19 22:59 06:59 14:59 Other: Voiding Method Toilet # Voids 1 Weight 128.367 kg PHYSICAL EXAMINATION: GENERAL: The patient is alert and oriented x3, not in any acute distress. Well developed, well nourished. HEENT: Pupils are round and equally reacting to light. EOMI. No scleral icterus. No conjunctival pallor. Normocephalic, atraumatic. No pharyngeal erythema. No thyromegaly. CARDIOVASCULAR: S1 and S2 present. No murmurs, rubs, or gallops. PULMONARY: Chest is clear to auscultation, no wheezing or crackles. ABDOMEN: Soft, nontender, nondistended, normoactive bowel sounds. No palpable organomegaly. MUSCULOSKELETAL: No joint swelling or deformity. EXTREMITIES: No cyanosis, clubbing, or pedal edema. NEUROLOGICAL: Bilateral leg numbness and tingling as mentioned above SKIN: No rashes. Results CBC & Chem 7: 05/26/19 19:50 05/26/19 19:50 Labs: Abnormal Lab Results - Last 24 Hours (Table) 05/26/19 05/26/19 Range/Units 19:50 19:50 WBC 12.1 H (3.8-10.6) k/uL Plt Count 521 H (150-450) k/uL Neutrophils # 8.8 H (1.3-7.7) k/uL Creatinine 1.29 H (0.66-1.25) mg/dL Glucose 109 H (74-99) mg/dL Thrombosis Risk Factor Assmnt - Choose All That Apply Each Factor Represents 1 point: Age 41-60 years, History of prior major surgery (<1month), Obesity (BMI >25) Thrombosis Risk Factor Assessment Total Risk Factor Score: 3 Thrombosis Risk Factor Assessment Level: Moderate Risk Assessment and Plan Plan: Paresthesias and numbness in both lower extremities, appears to have radiculopathy involving L2-L3 lumbar spine area patient will undergo an MRI of the stent removal alden. If MRI is negative neurology is recommending EMG. Physical therapy and occupational therapy consultation. We'll start him on Decadron for inflammation as we cannot use nonsteroidal anti-inflammatory -Renal failure appears to be chronic and secondary to nephrectomy expected to improve with compensative hypertrophy of the normal nuclear kidney. -Gastroesophageal reflux disease -Obesity sleep apnea continue CPAP machine Due to prophylaxis with subcutaneous heparin and levofloxacin Pepcid
[2019-05-27 12:14] LABS: Basophils # (A) 0.1 k/uL (0-0.2); Basophils % (A) 1 %; Eosinophils # (A) 0.4 k/uL (0-0.7); Eosinophils % (A) 4 %; HCT 40.1 % (39.0-53.0); HGB 13.3 gm/dL (13.0-17.5); Lymphocytes % (A) 17 %; MCH 29.5 pg (25.0-35.0); MCHC 33.2 g/dL (31.0-37.0); MCV 88.7 fL (80.0-100.0); Mean Platelet Volume 6.5; Monocytes # (A) 0.8 k/uL (0-1.0); Monocytes % (A) 7 %; Neutrophils % (A) 71 %; Platelet Count 483 k/uL (150-450); RBC 4.52 m/uL (4.30-5.90); RDW 13.9 % (11.5-15.5); WBC 11.4 k/uL (3.8-10.6)
[2019-05-27] MEDS: HEPARIN SODIUM,PORCINE 5,000 UNIT/ML 1 ML VIAL SQ SCH ×2 (14:32→22:17)
--- NOTE | 2019-05-28 07:08 | P.GSCN ---
History of Present Illness Consult date: 05/28/19 History of present illness: The patient is 53. He underwent a left radical nephrectomy last week for a clear cell carcinoma the kidney. He had some numbness in his legs postoperatively that was thought to be secondary to the epidural. It seemed to get better only to have it persisted and worsen after discharge. He came back in the hospital for the weakness. His motor function seems to be normal but he has diminished sensation in the anterior thighs in the right foot. He has been seen by neurology and an MRI is ordered. This is pending. He is able to walk h e just has to be careful due to the numbness. Review of Systems All systems: negative - Gastrointestinal Gastrointestinal Comment(s): Mild incisional pain. - Musculoskeletal Musculoskeleta Comment(s): Numbness right anterior thighs and right foot Past Medical History Past Medical History: Cancer, GERD/Reflux, Skin Disorder, Sleep Apnea/CPAP/BIPAP Additional Past Medical History / Comment(s): psoriasis, has cpap, cancer lt kidney,kidney stones History of Any Multi-Drug Resistant Organisms: None Reported Past Surgical History: Hernia Repair Additional Past Surgical History / Comment(s): colonoscopy, kidney removal Past Anesthesia/Blood Transfusion Reactions: Motion Sickness Additional Past Anesthesia/Blood Transfusion Reaction / Comm: . Past Psychological History: No Psychological Hx Reported Smoking Status: Former smoker Past Alcohol Use History: Occasional Additional Past Alcohol Use History / Comment(s): quit smoking approx 2000, smoked approx 20 yrs <1ppd Past Drug Use History: None Reported - Past Family History Mother Family Medical History: No Reported History Medications and Allergies Home Medications Medication Instructions Recorded Confirmed Type Loratadine-Pseudoeph 10-240 mg 1 tab PO DAILY 10/08/17 05/26/19 History [Claritin-D 24 Hr] Esomeprazole Magnesium [NexIUM] 40 mg PO DAILY 02/11/19 05/26/19 History Allergies Allergy/AdvReac Type Severity Reaction Status Date / Time naproxen [From Aleve] Allergy Dyspnea Verified 05/26/19 17:43 Surgical - Exam Vital Signs Temp Pulse Resp BP Pulse Ox 98.6 F 96 18 147/91 96 05/26/19 17:02 05/26/19 17:02 05/26/19 17:02 05/26/19 17:02 05/26/19 17:02 - General well developed, well nourished, no distress - Eyes PERRL - ENT no hearing loss - Respiratory normal expansion, normal respiratory effort - Cardiovascular Rhythm: regular - Abdomen Abdomen: soft, non tender, surgical scars - Genitourinary normal penis with no external lesions, testicles present - Neurologic Numbness per patient in anterior thighs and foot, right - Psychiatric oriented to time, oriented to person, oriented to place, speech is normal, m [place] intact Results - Labs 05/27/19 11:04 05/26/19 19:50 Abnormal Lab Results - Last 24 Hours (Table) 05/27/19 Range/Units 11:04 WBC 11.4 H (3.8-10.6) k/uL Plt Count 483 H (150-450) k/uL Neutrophils # 8.0 H (1.3-7.7) k/uL Assessment and Plan Assessment: Impression: Status post left radical nephrectomy for renal cell carcinoma. Lower extremity numbness right greater than left probably secondary to epidural. Neurology has been consult would and an MRI is pending Recommendations: The patient is being seen by neurology and an MRI is pending. I suspect this will get better as the inflammation or irritation from the epidural subsides. This does not appear to be surgically related as there is more numbness on the right than the left.
[2019-05-28] MEDS: HEPARIN SODIUM,PORCINE 5,000 UNIT/ML 1 ML VIAL SQ SCH ×3 (07:24→22:54)
[2019-05-28] MEDS: PANTOPRAZOLE 40 MG TABLET PO SCH (07:24)
[2019-05-28 08:08] LABS: HCT 39.2 % (39.0-53.0); HGB 13.3 gm/dL (13.0-17.5); MCH 29.5 pg (25.0-35.0); MCHC 33.8 g/dL (31.0-37.0); MCV 87.3 fL (80.0-100.0); Mean Platelet Volume 6.9; Platelet Count 504 k/uL (150-450); RDW 14.9 % (11.5-15.5)
[2019-05-28] MEDS ORDERED: LORATADINE-PSEUDOEPH 5-120 MG 1 EACH TAB.ER.12H PO PRN (09:00)
--- NOTE | 2019-05-28 11:53 | P.PN ---
Progress Note - Text Progress Note Date: 05/28/19 Received call from RN at 1150am 05/28/19. Unable to obtain MRI L-spine as surgeon who performed nephrectomy was unable to verify exactly what type of clips he had used. In this case, no further inpatient neuro work-up can be offered. He will need to follow up with outpatient neurology next week for EMG/NCS of the BLE. No other inpatient neuro recs at this time. Please call with new ?.
--- NOTE | 2019-05-28 17:12 | MR ---
EXAMINATION TYPE: MR lumbar spine wo/w con DATE OF EXAM: 05/28/2019 COMPARISON: None HISTORY: Weakness CONTRAST: 13 mL intravenous Gadavist. TECHNIQUE: Multiplanar, multisequence images of the lumbar spine were acquired. FINDINGS: Cord terminates at the T12-L1 level. L5-S1: No significant disc bulge or disc herniation. Mild disc space narrowing is present. No spinal canal stenosis. No foraminal stenosis. L4-L5: No significant disc bulge or disc herniation. No spinal canal stenosis. No foraminal stenosi s. Mild facet hypertrophy is present with posterior lateral thecal sac contact.. L3-L4: No significant disc bulge or disc herniation. No spinal canal stenosis. No foraminal stenosi s. L2-L3: No significant disc bulge or disc herniation. No spinal canal stenosis. No foraminal stenosi s. L1-L2: No significant disc bulge or disc herniation. No spinal canal stenosis. No foraminal stenosi s. T12-L1: No significant disc bulge or disc herniation. No spinal canal stenosis. No foraminal stenos is. Hemangioma may be in the inferior left vertebral body. No abnormal enhancement. IMPRESSION: 1. Mild facet hypertrophy L4-5 without stenosis. 2. No suspicious enhancement or cord compression to account for symptoms of weakness
--- NOTE | 2019-05-28 18:00 | PN ---
PROGRESS NOTE DATE OF SERVICE: 05/28/2019. HISTORY OF PRESENT ILLNESS: This 53-year-old gentleman who was admitted after nephrectomy is complaining of paresthesias. The patient also has some difficulty walking. Neurology is following the patient closely. Immediately after surgery, patient had spinal anesthesia and as well as epidural also. The tingling is on both legs, which is radiating also below the hip area. Neurology is following the patient. MRI has been recommended. MRA checking with external cutaneous clips and as well as internal surgical clips for compatibility. PAST MEDICAL HISTORY: Reviewed. REVIEW OF SYSTEMS: CARDIOVASCULAR SYSTEM: No angina or palpitations. RESPIRATION: As mentioned earlier. GASTROINTESTINAL: As mentioned earlier. mentioned earlier. CENTRAL NERVOUS SYSTEM: Mentioned earlier. CURRENT MEDICATIONS: Reviewed and include 1. Hexadrol 4 mg b.i.d. p.r.n. 2. Heparin 5000 subcu q8h. 3. Claritin-D. 4. Morphine sulfate. 5. Narcan. 6. Protonix. PHYSICAL EXAM: Patient is alert, oriented x3. Pulse 82, blood pressure is 135/83, respiration 17, temperature 98.4, pulse ox 98% on room air. HEENT: Conjunctivae normal. Oral mucosa moist NECK is no jugular venous distention. No carotid bruit. No lymph node enlargement. CARDIOVASCULAR: S1, S2. No S3, no S4. RESPIRATORY: Breath sounds diminished in the bases. No rhonchi. No crackles. ABDOMEN: Soft, obese, nontender. Status post surgery. Surgical scar on the left side. LEGS no edema. No swelling. NERVOUS SYSTEM: Higher functions as mentioned earlier. Moves all 4 limbs. Otherwise significant paresthesia varying amounts from the both legs from the lateral part with some spots of heavy sensory loss according to the patient. Otherwise, no other focal motor deficits. Power is normal. SKIN: No ulcers, no rashes and no bleeding. JOINTS: No active deforming arthropathy. LABS: WBC 11, and platelets are 504, and sodium 131, creatinine is 1.29, glucose 109. ASSESSMENT: 1. Numbness and paresthesia, both lower extremities, possible radiculopathy, rule out spinal cord compression and postsurgical complications. Awaiting MRI. 2. History of recent left nephrectomy. 3. Increased creatinine with possible acute kidney failure with acute tubular necrosis, mild. 4. Increased platelets. 5. Increased WBC possibly reactive. 6. Obesity with body mass index 41.8. 7. History of gastroesophageal reflux disease. 8. Sleep apnea. 9. History of psoriasis. 10.Using CPAP. 11.History of nephrolithiasis. 12.Remote history of nicotine dependence. 13.FULL CODE. RECOMMENDATIONS AND DISCUSSION: In this 53-year-old gentleman who presented with multiple complex medical issues, we will monitor the patient closely. Continue the current medications, management and symptomatic treatment and DVT prophylaxis. I would also recommend check coagulations coags at this time. Otherwise, I would also recommend empiric supplement vitamins. We will check with OR about the compatibility of the internal surgical clips and we will proceed with MRI. I would also considering the gait dysfunctions, I would recommend the patient to follow closely with PT/OT and avoid ambulation in dark and will recommend PT/OT evaluation and safety assessment before discharging this patient. Overall prognosis guarded because of multiple complex medical issues. Neurology has recommended outpatient neurology evaluation including EMG and other studies also if the MRI is unremarkable. Further recommendations to follow. See orders for details. MMODL / IJN: [id number] /
--- NOTE | 2019-05-28 18:04 | P.PN ---
Subjective Progress Note Date: 05/28/19 Principal diagnosis: BLE numbness and paresthesias MRI L-spine finally done after surgical clip type verified by OR. Patient reports same neuro c/o. Objective - Vital Signs Vital signs: Vital Signs Temp 98.4 F 05/28/19 14:45 Pulse 82 05/28/19 14:45 Resp 17 05/28/19 14:45 BP 135/83 05/28/19 14:45 Pulse Ox 96 05/28/19 14:45 Intake & Output 05/27/19 05/28/19 05/28/19 18:59 06:59 18:59 Other: Voiding Method Toilet # Voids 2 2 3 - Exam Patient not examined today. Today's visit was focused on [id number] counseling - Labs CBC & Chem 7: 05/28/19 07:45 05/26/19 19:50 Labs: Abnormal Lab Results - Last 24 Hours (Table) 05/28/19 Range/Units 07:45 WBC 11.0 H (3.8-10.6) k/uL Plt Count 504 H (150-450) k/uL - Imaging and Cardiology MRI L-spine 05/28/19. Mild facet hypertrophy at L4 to L5 without stenosis. No other area of neural foraminal or central canal stenosis. No evidence of hematoma or fluid collection. There is no suspicious enhancement or cord compression to account for patient's symptoms. I have reviewed neuroimages myself. Assessment and Plan Assessment: BLE numbness/paresthesias s/p spinal anesthesia (per history from patient) Plan: -MRI L-spine w wo sarahi unrevealing; results d/w patient at length -Start gabapentin 300mg po qhs -Dosing instructions and potential side effects d/w patient who is instructed to call PCP with any ? -He should follow up with PCP next week. If his symptoms, he should be referred to outpatient neurology for EMG/NCS of BLE -Patient has questions about what happened perioperatively and regarding his anesthesia procedure/techniques, etc. He needs to get in touch with anesthesiology for further inquiries -d/w patient and RN in detail. All questions answered -Stable for discharge from acute neuro standpoint. Please call with new ?. Thank you again for this consultation. Time with Patient: Less than 30 (Time spent in direct patient care, greater than 50% of which was spent in [id number] counseling and coordination of care: 25 minutes)
[2019-05-28] MEDS ORDERED: GABAPENTIN 300 MG CAP PO SCH ×2 (21:00)
[2019-05-29 07:42] VITALS: PULSE 79; RESP 12
[2019-05-29 08:11] LABS: Basophils % (A) 0 %; Eosinophils # (A) 0.3 k/uL (0-0.7); Eosinophils % (A) 3 %; HCT 41.4 % (39.0-53.0); HGB 13.9 gm/dL (13.0-17.5); Lymphocytes # (A) 1.9 k/uL (1.0-4.8); Lymphocytes % (A) 19 %; MCHC 33.5 g/dL (31.0-37.0); MCV 86.5 fL (80.0-100.0); Mean Platelet Volume 6.9; Monocytes # (A) 0.6 k/uL (0-1.0); Monocytes % (A) 6 %; Neutrophils % (A) 70 %; Platelet Count 546 k/uL (150-450); RBC 4.79 m/uL (4.30-5.90); RDW 14.5 % (11.5-15.5)
[2019-05-29] MEDS: HEPARIN SODIUM,PORCINE 5,000 UNIT/ML 1 ML VIAL SQ SCH ×2 (08:38→17:13)
[2019-05-29] MEDS: PANTOPRAZOLE 40 MG TABLET PO SCH (08:38)
[2019-05-29 08:46] LABS: Calcium 9.2 mg/dL (8.4-10.2); Potassium 4.9 mmol/L (3.5-5.1)
--- NOTE | 2019-05-29 11:52 | P.PN ---
Progress Note - Text Progress Note Date: 05/29/19 The patient's MRI was unremarkable. He was started on gabapentin yesterday. The incision is healing well. He states that he is experiencing diminished neurological symptoms involving the lower extremities, and discharge home today is anticipated. He will follow-up with Dr. Madera as an outpatient. Please notify me if we can be of any further assistance.
[2019-05-29] MEDS ORDERED: FOLIC ACID 1 MG TAB PO SCH (12:00)
[2019-05-29] MEDS ORDERED: THIAMINE 100 MG TAB PO SCH (12:00)
[2019-05-29] MEDS ORDERED: MULTIVITAMINS, THERA 1 EACH TAB PO SCH (12:00)
[2019-05-29 15:32] VITALS: BP 126/77; TEMP 98.2
--- NOTE | 2019-05-30 00:01 | DS ---
DISCHARGE SUMMARY DATE OF SERVICE: 05/29/2019. FINAL DIAGNOSES: 1. Numbness and paresthesia, both lower limbs, possibly radiculopathy. No evidence of spinal cord compression or postsurgical complications in the MRI. 2. History of recent left nephrectomy. 3. Increased creatinine with possible acute renal failure with acute tubular necrosis, mild. 4. Increased platelets. 5. Increased WBC, possibly reactive. 6. Obesity with body mass index of 41.8. 7. History of gastroesophageal reflux disease. 8. History of sleep apnea. 9. History of psoriasis. 10.Using CPAP. 11.History of nephrolithiasis. 12.Remote history of nicotine dependence. 13.FULL CODE. DISCHARGE DISPOSITION: The patient will be discharged in stable condition with guarded prognosis. Total time taken 35 minutes. HISTORY OF PRESENT ILLNESS: This 53-year-old gentleman with a past medical history of multiple medical problems as mentioned earlier, was admitted with significant numbness and paresthesia and gait dysfunction. The patient was monitored closely. Patient recently had a nephrectomy and as well as spinal anesthesia and epidural. Neurology was consulted. MRI was done to rule out the possibility of any spinal cord compression and MRI returned only showing only DJD. No evidence of spinal cord compression. Neurology recommended conservative line of management. On exam, vitals are stable. Cardio system: S1, S2. Abdomen soft. Nervous system: Minimal numbness present in the both lower legs. The patient is seen by Urology, Neurology, during the hospitalization. DISCHARGE ADVICE AND MEDICATIONS: 1. Discharge diet is cardiac. 2. Activity limited followup. 3. Follow up with Dr. Logan in 2-3 days. 4. Follow with Neurology and as well as well as Urology as recommended. DISCHARGE MEDICATIONS: 1. Claritin-D 1 p.o. daily. 2. Nexium 40 mg p.o. daily. 3. Folic acid 1 mg daily. 4. Medrol Dosepak as directed. 5. Multivitamins 1 p.o. daily. 6. Neurontin 300 mg q.h.s. 7. Thiamine 100 mg p.o. daily. CBC and BMP and followup outpatient. MMODL / IJN: [id number] /
== END 2019-05-29 17:19 | disposition home or self-care (01) | DRG 551 ==
LOC: EC 16:33 → 4SSUR 21:22
PROVIDERS: ADMIT Internal Medicine; ATTEND Internal Medicine
DX: M54.16 Radiculopathy, lumbar region (principal); N17.0 Acute kidney failure with tubular necrosis; Z68.41 Body mass index [BMI] 40.0-44.9, adult; C64.2 Malignant neoplasm of left kidney, except renal pelvis; E66.9 Obesity, unspecified; G47.30 Sleep apnea, unspecified; K21.9 Gastro-esophageal reflux disease without esophagitis; Z90.5 Acquired absence of kidney; Z87.442 Personal history of urinary calculi; Z85.528 Personal history of other malignant neoplasm of kidney; Z87.891 Personal history of nicotine dependence; Z99.89 Dependence on other enabling machines and devices; D69.6 Thrombocytopenia, unspecified; L40.9 Psoriasis, unspecified; D72.828 Other elevated white blood cell count
CPT/HCPCS: 36415; 72158; 80048; 80053; 85025; 85027; 96374; 99284

== ENCOUNTER → 2019-05-31 | Outpatient (CLI) | payer OTHER ==
[2019-05-31 15:49] LABS: Basophils % (A) 0 %; Eosinophils # (A) 0.1 k/uL (0-0.7); Eosinophils % (A) 1 %; HCT 43.2 % (39.0-53.0); HGB 14.6 gm/dL (13.0-17.5); Lymphocytes # (A) 2.3 k/uL (1.0-4.8); Lymphocytes % (A) 14 %; MCH 29.8 pg (25.0-35.0); MCHC 33.8 g/dL (31.0-37.0); MCV 88.2 fL (80.0-100.0); Mean Platelet Volume 7.4; Monocytes # (A) 0.8 k/uL (0-1.0); Monocytes % (A) 5 %; Neutrophils # (A) 12.8 k/uL (1.3-7.7); Neutrophils % (A) 79 %; Platelet Count 583 k/uL (150-450); RDW 14.6 % (11.5-15.5); WBC 16.3 k/uL (3.8-10.6)
[2019-05-31 23:45] LABS: African American GFR (CKD) 66.5 (60.0-200.0); Anion Gap 11.7 mmol/L (4.00-12.00); BUN/Creat Ratio 16.43 Ratio (12.00-20.00); Calcium 9.4 mg/dL (8.7-10.3); Carbon Dioxide 23.3 mmol/L (21.6-31.8)
== END ==
LOC: LABWHC1 13:45
PROVIDERS: ATTEND Hospitalist
DX: N18.9 Chronic kidney disease, unspecified (principal)
CPT/HCPCS: 36415; 80048; 85025

== ENCOUNTER 2020-01-23 14:44 | Emergency (ER) | payer OTHER ==
--- NOTE | 2020-01-23 15:05 | ED ---
Chest Pain HPI - General Source: patient Mode of arrival: wheelchair Limitations: no limitations <Zhane Villalobos - Last Filed: 01/23/20 17:50> <Grecia Lowery - Last Filed: 01/24/20 23:31> - General Chief Complaint: Chest Pain Stated Complaint: Chest tightness Time Seen by Provider: 01/23/20 14:50 - History of Present Illness Initial Comments: 54-year-old male presenting today for chief complaint of chest discomfort, cough, shortness of breath x 1 day. Patient states 2 weeks ago he started no bronchitis he had coughed some discomfort with coughing and shortness of breath he was prescribed a steroid at this time he states is somewhat helped. Patient states that yesterday the same symptoms recurred he had some chest discomfort wtih coughing,and felt slightly short of breath. Patient denies fevers admits to chills. Denies leg swelling hemoptysis. Fromer smoker. Denies DM/HTN, history of CAD or HLD. Denies family history of CAD. Patient denies history of DVT/PE. Patient denies jaw pain, UE pain, back pain or ripping or tearing pain. Patient has no additional complaints. Patient initially presented to [facility], where he had EKG performed (i reviewed on arrival no ST elevation or depression) and was given 324mg of chewable aspirin. (Zhane Villalobos) - Related Data Home Medications Medication Instructions Recorded Confirmed Loratadine-Pseudoeph 10-240 mg 1 tab PO DAILY 10/08/17 01/23/20 [Claritin-D 24 Hour] Esomeprazole Magnesium [NexIUM] 40 mg PO DAILY 02/11/19 01/23/20 Previous Rx's Medication Instructions Recorded Azithromycin [Zithromax Z-pack] 0 mg PO DIRECTED #6 tab 01/23/20 Allergies Allergy/AdvReac Type Severity Reaction Status Date / Time naproxen [From Aleve] Allergy Dyspnea Verified 01/23/20 17:05 Review of Systems ROS Other: All systems not noted in ROS Statement are negative. <Zhane Villalobos - Last Filed: 01/23/20 17:50> ROS Other: All systems not noted in ROS Statement are negative. <Grecia Lowery - Last Filed: 01/24/20 23:31> ROS Statement: Those systems with pertinent positive or pertinent negative responses have been documented in the HPI. Past Medical History Past Medical History: Cancer, GERD/Reflux, Skin Disorder, Sleep Apnea/CPAP/BIPAP Additional Past Medical History / Comment(s): psoriasis, has cpap, cancer lt kidney,kidney stones History of Any Multi-Drug Resistant Organisms: None Reported Past Surgical History: Hernia Repair Additional Past Surgical History / Comment(s): colonoscopy, kidney removal Past Anesthesia/Blood Transfusion Reactions: Motion Sickness Additional Past Anesthesia/Blood Transfusion Reaction / Comment(s): . Past Psychological History: No Psychological Hx Reported Smoking Status: Former smoker Past Alcohol Use History: Occasional Past Drug Use History: None Reported - Past Family History Mother Family Medical History: No Reported History <Zhane Villalobos - Last Filed: 01/23/20 17:50> General Exam Limitations: no limitations <Zhane Villalobos - Last Filed: 01/23/20 17:50> - General Exam Comments Initial Comments: General: The patient is awake and alert, in no distress Eye: +3 mm pupils are equal, round and reactive to light, extra-ocular movements are intact. No nystagmus. There is normal conjunctiva bilaterally. No signs of icterus. Ears, nose, mouth and throat: There are moist mucous membranes and no oral lesions. Neck: The neck is supple, there is no tenderness or JVD. Cardiovascular: There is a regular rate and rhythm. No murmur, rub or gallop is appreciated. Respiratory: Lungs are clear to auscultation, respirations are non-labored, breath sounds are equal. No wheezes, stridor, rales, or rhonchi. Gastrointestinal: Soft, non-distended, non-tender abdomen without masses or organomegaly noted. There is no rebound or guarding present. Musculoskeletal: Normal ROM, no tenderness. Strength 5/5. Sensation intact. Radial pulses equal bilaterally 2+. Neurological: A&O x 3. CN II-XII intact grossly, There are no obvious motor or sensory deficits. Coordination appears grossly intact. Speech is normal. Skin: Skin is warm and dry and no rashes or lesions are noted. No LE edema. Psychiatric: Cooperative, appropriate mood & affect, normal judgment. (Zhane Villalobos) Course Vital Signs 04/19/20 04/19/20 14:45 17:11 Temperature 98.4 F 98.1 F Pulse Rate 81 82 Respiratory 20 18 Rate Blood Pressure 152/91 135/82 O2 Sat by Pulse 98 97 Oximetry Chest Pain MDM <Zhane Villalobos - Last Filed: 01/23/20 17:50> <Grecia Lowery - Last Filed: 01/24/20 23:31> - MDM A well-appearing 54-year-old male presenting today for chief complaint of chest discomfort when coughing, cough. Patient is concerned over 19. Patient denies any jaw pain arm pain and pain with exertion. Patient has history of previous smoker otherwise no significant risk factors. Patient tests are clear to EKG no acute findings. Initial troponin negative. No leukocytosis or leukopenia. Coma testing negative d-dimer within acceptable limits. Patient is not tachycardic vital signs stable. At this time feel patient is stable for discharge head did recommend since he symptomatically with cough to stay home for 1 week he is to return to work to be fever free--as there is a risk he is a false negative with a rapid covid test. Patient is agreeable to this care plan and discharge at this time. (Zhane Villalobos) I was available for consultation in the emergency department. The history and physical exam were done by the midlevel provider. I was consulted for this patients care. I reviewed the case with the midlevel provider and based on their presentation of the patient, I agree with the assessment, medical decision making and plan of care as documented. Chart was dictated using [employer] dictation software. Attempts were made to correct any dictation errors however some typographical errors may persist. Patient was seen during a national state of emergency due to the Covid-19 pandemic. (Grecia Lowery) Disposition Is patient prescribed a controlled substance at d/c from ED?: No Time of Disposition: 17:43 <Zhane Villalobos - Last Filed: 01/23/20 17:50> <Grecia Lowery - Last Filed: 01/24/20 23:31> Clinical Impression: Dyspnea, Cough, Chest discomfort Disposition: HOME SELF-CARE Condition: Good Instructions (If sedation given, give patient instructions): Upper Respiratory Infection (ED) Additional Instructions: Please use medication as discussed. Please follow-up with family doctor in the next 2 days. Please return to emergency room if the symptoms increase or worsen or for any other concerns. Prescriptions: Azithromycin [Zithromax Z-pack] 0 mg PO DIRECTED #6 tab Referrals: Gee Logan DO [Primary Care Provider] - 1-2 days
[2020-01-23 15:24] LABS: Basophils % (A) 0 %; Eosinophils # (A) 0.5 k/uL (0-0.7); Eosinophils % (A) 4 %; HCT 46.1 % (39.0-53.0); HGB 15.7 gm/dL (13.0-17.5); Lymphocytes % (A) 20 %; MCH 29.6 pg (25.0-35.0); MCHC 34.1 g/dL (31.0-37.0); MCV 86.8 fL (80.0-100.0); Mean Platelet Volume 7.2; Monocytes # (A) 0.7 k/uL (0-1.0); Monocytes % (A) 7 %; Neutrophils # (A) 6.8 k/uL (1.3-7.7); Neutrophils % (A) 67 %; Platelet Count 295 k/uL (150-450); RDW 13.5 % (11.5-15.5); WBC 10.2 k/uL (3.8-10.6)
[2020-01-23 15:35] LABS: Albumin 3.9 g/dL (3.5-5.0); C Reactive Protein 32.2 mg/L (<10.0); Calcium 9.2 mg/dL (8.4-10.2); Magnesium 2.2 mg/dL (1.6-2.3); Potassium 4.4 mmol/L (3.5-5.1); Total Bilirubin 0.4 mg/dL (0.2-1.3); Total Protein 6.7 g/dL (6.3-8.2)
[2020-01-23 15:37] LABS: INR 0.9 (<1.2)
[2020-01-23 15:38] LABS: D-Dimer 0.33 mg/L FEU (<0.60); Partial Thromboplastin Time 23.9 sec (22.0-30.0); Prothrombin Time 9.3 sec (9.0-12.0)
--- NOTE | 2020-01-23 15:52 | XR ---
EXAMINATION TYPE: XR chest 1V portable DATE OF EXAM: 01/23/2020 COMPARISON: 05/12/2019 HISTORY: Chest pain TECHNIQUE: FINDINGS: Heart and mediastinum are normal. Lungs are clear of consolidation. Costophrenic angles are clear. Bony thorax is intact. There is no pleural effusion. IMPRESSION: No active cardiopulmonary disease. No change.
[2020-01-23 17:12] VITALS: BP 135/82; PULSE 82; RESP 18; TEMP 98.1
[2020-01-24 10:04] LABS: Ferritin 158.4 ng/mL (22.0-322.0)
== END 2020-01-23 17:44 | disposition home or self-care (01) ==
LOC: EC 14:44
DX: Z03.818 Encounter for observation for suspected exposure to other biological agents ruled out (principal); R07.89 Other chest pain; R06.00 Dyspnea, unspecified; R05 Cough; K21.9 Gastro-esophageal reflux disease without esophagitis; G47.30 Sleep apnea, unspecified; Z99.89 Dependence on other enabling machines and devices; Z85.528 Personal history of other malignant neoplasm of kidney; Z87.891 Personal history of nicotine dependence; Z82.49 Family history of ischemic heart disease and other diseases of the circulatory system; Z79.899 Other long term (current) drug therapy; Z88.6 Allergy status to analgesic agent
CPT/HCPCS: 36415; 71045; 80053; 82728; 83605; 83615; 83735; 84145; 84484; 85025; 85379; 85610; 85730; 86140; 87040; 87502; 87635; 93005; 99285

== ENCOUNTER → 2020-03-09 | Outpatient (CLI) | payer OTHER ==
--- NOTE | 2020-03-09 11:47 | XR ---
EXAMINATION TYPE: XR chest 2V DATE OF EXAM: 03/09/2020 COMPARISON: 01/23/2020 TECHNIQUE: PA and lateral views submitted. HISTORY: Renal cancer follow-up FINDINGS: The lungs are clear and there is no pneumothorax, pleural effusion, or focal pneumonia. No sizable pulmonary nodules are identified. Linear density left lung most likely related atelectasis or scar. IMPRESSION: 1. No acute process.
[2020-03-09 12:17] LABS: Albumin 3.8 g/dL (3.5-5.0); Calcium 9.3 mg/dL (8.4-10.2); Total Bilirubin 0.5 mg/dL (0.2-1.3); Total Protein 6.6 g/dL (6.3-8.2)
[2020-03-09 12:30] LABS: Potassium 4.4 mmol/L (3.5-5.1)
--- NOTE | 2020-03-09 14:33 | CT ---
EXAMINATION TYPE: CT abdomen pelvis w con DATE OF EXAM: 03/09/2020 COMPARISON: CT abdomen and pelvis April 23, 2019 HISTORY: follow up renal cancer CT DLP: 2369.5 mGycm, Automated Exposure Control for Dose Reduction was Utilized. CONTRAST: CT scan of the abdomen and pelvis is performed with oral and with IV Contrast, patient injected with 80 mL of Isovue 300. FINDINGS: LUNG BASES: No significant abnormality is appreciated. LIVER/GB: Contracted gallbladder redemonstrated. PANCREAS: No significant abnormality is seen. SPLEEN: No significant abnormality is seen. ADRENALS: Both adrenal glands remain present. KIDNEYS: Right kidney shows satisfactory cortical medullary uptake and excretion without hydronephros is. There has been interval left-sided surgery with numerous clips near the hilum. There is now nonen hancing 4.2 x 4.0 x 4.1 cm craniocaudal diameter soft tissue mass in the left retroperitoneum axial i mage 33 and coronal image 85. This lesion is in close proximity to the site of primary neoplasm and m akes strongly suspicious for recurrent neoplasm. Interval excision of the draining left renal vein doan pplying the left renal artery noted. Bladder within normal limits. Occasional pelvic phleboliths inferiorly seen. BOWEL: Normal-appearing appendix from base of cecum right lower quadrant. No suspicious small bowel o r large bowel dilatation. PROSTATE/SEMINAL VESICLES: No gross abnormality seen. LYMPH NODES: No greater than 1cm abdominal or pelvic lymph nodes are appreciated. OSSEOUS STRUCTURES: Redemonstration of partially sacralized left L5 segment. Facet arthropathy throug hout the mid to lower lumbar spine is present. OTHER: No significant additional abnormality is seen. 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 Advise surgical referral to further assessment.
== END | disposition home or self-care (01) ==
LOC: RADCTMAIN 10:21
PROVIDERS: ATTEND Urology
DX: C64.2 Malignant neoplasm of left kidney, except renal pelvis (principal); Z88.6 Allergy status to analgesic agent
CPT/HCPCS: 80053; 71046; 74177; 36415; Q9967

== ENCOUNTER → 2020-11-15 | Outpatient (CLI) | payer BC ==
--- NOTE | 2020-11-15 14:26 | XR ---
EXAMINATION TYPE: XR chest 2V DATE OF EXAM: 11/15/2020 COMPARISON: 03/09/2020 TECHNIQUE: PA and lateral views submitted. HISTORY: Renal cell cancer FINDINGS: The lungs are clear and there is no pneumothorax, pleural effusion, or focal pneumonia. Heart size stable. No overt failure. Biapical pleural thickening. IMPRESSION: 1. No acute process.
--- NOTE | 2020-11-15 16:21 | CT ---
EXAMINATION TYPE: CT abdomen pelvis w con DATE OF EXAM: 11/15/2020 COMPARISON: CT 03/09/2020 HISTORY: f/u renal ca CT DLP: 4145.2 mGycm Automated exposure control for dose reduction was used. TECHNIQUE: Helical acquisition of images from the lung bases through the pelvis have been completed. CONTRAST: Performed with Oral Contrast and with IV Contrast, patient injected with 100 mL of Isovue 300. FINDINGS: LUNG BASES: No significant abnormality is appreciated. AORTA: No significant abnormality is appreciated. LIVER/GB: Low-attenuation within the liver may be due to hepatic steatosis, gallbladder is contracted PANCREAS: No significant abnormality is seen. SPLEEN: No significant abnormality is seen. ADRENALS: No significant abnormality is seen. KIDNEYS: Patient is post left nephrectomy as noted on prior exam. There is a soft tissue mass just in ferior to the nephrectomy site which measures approximately 4.1 cm in AP dimension by 3.4 cm which is slightly decreased as compared to prior and may represent resolving hematoma. REPRODUCTIVE ORGANS: No significant abnormality is seen BOWEL: No significant abnormality is seen. FREE AIR: No Free Air visible. ASCITES: None visible. PELVIC ADENOPATHY: None visualized. RETROPERITONEAL ADENOPATHY: No Retroperitoneal Adenopathy visible. URINARY BLADDER: No significant abnormality is seen. OSSEOUS STRUCTURES: No significant abnormality is seen. IMPRESSION: SOME IMPROVEMENT IN THE SOFT TISSUE MASS SEEN PREVIOUSLY AT THE NEPHRECTOMY SITE SUGGESTS POSSIBLE PO STOPERATIVE FINDING RATHER THAN TUMOR, ADDITIONAL FOLLOW-UP RECOMMENDED
== END | disposition home or self-care (01) ==
LOC: RADCTMAIN 12:58
PROVIDERS: ATTEND Urology
DX: M79.89 Other specified soft tissue disorders (principal); Z90.5 Acquired absence of kidney; C64.9 Malignant neoplasm of unspecified kidney, except renal pelvis; Z88.6 Allergy status to analgesic agent
CPT/HCPCS: 82565; 84520; 71046; 74177; 36415; Q9967

== ENCOUNTER → 2021-02-23 | Outpatient (CLI) | payer BC ==
--- NOTE | 2021-02-23 15:02 | XR ---
EXAMINATION TYPE: XR chest 2V DATE OF EXAM: 02/23/2021 COMPARISON: Chest x-ray 11/15/2020 HISTORY: Shortness of breath TECHNIQUE: Frontal and lateral views of the chest are obtained. FINDINGS: There is no focal air space opacity, pleural effusion, or pneumothorax seen. The cardiac silhouette size is within normal limits, stable. There is flattening the hemidiaphragms suggesting u nderlying COPD. Multiple surgical clips are present within the abdomen. The osseous structures are in tact. IMPRESSION: No acute cardiopulmonary process.
== END | disposition home or self-care (01) ==
LOC: RADXRYALE 10:39
PROVIDERS: ATTEND Family Medicine
DX: R06.02 Shortness of breath (principal)
CPT/HCPCS: 71046

== ENCOUNTER → 2023-02-21 | Outpatient (CLI) | payer BC ==
--- NOTE | 2023-02-22 05:48 | MR ---
EXAMINATION TYPE: MR knee LT wo con DATE OF EXAM: 02/21/2023 COMPARISON: Outside left knee x-ray February 12, 2023 HISTORY: Lt knee pain and swelling for 2 months. TECHNIQUE: Multiplanar, multisequence images of the knee is performed without IV contrast. FINDINGS: MEDIAL MENISCUS: Anterior and posterior horns are intact without tear. LATERAL MENISCUS: Anterior and posterior horns are intact without tear. CRUCIATE LIGAMENTS: The anterior and posterior cruciate ligaments are intact and unremarkable. COLLATERAL LIGAMENTS: The medial collateral ligament and lateral collateral ligament complex are inta ct and unremarkable. EXTENSOR MECHANISM: Visualized quadriceps and patellar tendons are intact. EFFUSION: No significant suprapatellar joint effusion. POPLITEAL CYST: Tiny popliteal/gonzalez cyst. TRICOMPARTMENT SPACES: Mild tricompartment joint space loss and spurring. CARTILAGE: Tricompartment articular cartilage is preserved. BONE MARROW SIGNAL: No focal abnormal marrow signal is appreciated. OTHER: No additional significant abnormality is appreciated. IMPRESSION: No meniscal or ligamentous tear is seen. Mild tricompartment degenerative changes are pre sent. Tiny popliteal cyst noted.
== END | disposition home or self-care (01) ==
LOC: RADMRIMAIN 20:15
PROVIDERS: ATTEND Orthopaedic Surgery
DX: M17.12 Unilateral primary osteoarthritis, left knee (principal); M71.22 Synovial cyst of popliteal space [Baker], left knee

== ENCOUNTER → 2023-03-14 | Outpatient (CLI) | payer BC ==
[2023-03-14 11:03] LABS: Anion Gap 11.6 mmol/L (4.00-12.00); Carbon Dioxide 26.4 mmol/L (21.6-31.8); Potassium 4.7 mmol/L (3.5-5.5)
[2023-03-14 11:48] LABS: Basophils # (A) 0.04 X 10*3/uL (0.00-0.10); Basophils % (A) 0.4 %; Eosinophils # (A) 0.32 X 10*3/uL (0.04-0.35); Eosinophils % (A) 3.3 %; HCT 46.4 % (39.6-50.0); HGB 15.1 d/dL (12.0-15.0); Lymphocytes # (A) 1.76 X 10*3/uL (0.90-5.00); MCH 29.3 pg (27.0-32.0); MCHC 32.5 d/dL (32.0-37.0); MCV 90.1 FL (80.0-97.0); Mean Platelet Volume 9.7 FL (9.5-12.2); Monocytes # (A) 0.74 X 10*3/uL (0.20-1.00); Monocytes % (A) 7.6 %; NRBC Per 100 WBC 0 X 10*3/uL (0.00-0.01); Neutrophils # (A) 6.88 X 10*3/uL (1.80-7.70); Neutrophils % (A) 70.3 %; Platelet Count 317 X 10*3/uL (140-440); RBC 5.15 X 10*6/uL (4.40-5.60); RDW 13.8 % (11.5-14.5); WBC 9.78 X 10*3/uL (4.50-10.00)
== END | disposition home or self-care (01) ==
LOC: LABPAT 07:02
PROVIDERS: ATTEND Orthopaedic Surgery
DX: Z01.818 Encounter for other preprocedural examination (principal)
CPT/HCPCS: 36415; 80051; 85025; 93005

== ENCOUNTER 2023-04-10 11:27 | Day surgery (SDC) | payer BC ==
--- NOTE | 2023-04-09 21:45 | HP ---
HISTORY AND PHYSICAL DATE OF SURGERY: 04/10/2023. HISTORY OF PRESENT ILLNESS: Shad Walker is a 57-year-old gentleman seen with progressive left knee pain. We discussed options. He elected to proceed with left knee arthroscopy. Consent was obtained. PAST MEDICAL HISTORY: Noncontributory. PAST SURGICAL HISTORY: Nephrectomy. DAILY MEDICATIONS: None. ALLERGIES: None. SOCIAL HISTORY: Denies tobacco use. PHYSICAL EVALUATION OF LEFT KNEE: Range of motion is 0 to degrees. Mild effusion. Tenderness along the medial joint line. Positive medial Shena's. Ligaments stable. Hip rotation without pain. Distal neurovascular exam intact. RADIOGRAPHS: Radiographs of left knee revealed a partial posterior cruciate ligament tear, intra- articular effusion. MRI of left knee revealed popliteal cyst. IMPRESSION: Internal derangement of left knee with meniscal tear versus osteochondral tear. PLAN: Left knee arthroscopy with partial meniscectomy versus chondral debridement. MMODL / IJN: [id number] /
[~2023-04-10 11:27] MED LIST changes: -DEXAMETHASONE SOD PHOSPHATE 10 MG/ML 1 ML VIAL IV ONE; +DEXAMETHASONE SOD PHOSPHATE 4 MG/ML 1 ML VIAL IV ONE; +LACTATED RINGERS 1,000 ML IV SCH; +LIDOCAINE 1% (10MG/ML) FOR IV START INTRADERMA PRN; -MIDAZOLAM 2 MG/2 ML VIAL IV PRN; -ceFAZolin 3 GM in SODIUM CHLORIDE 0.9% 100 ML IVPB ONE; +droPERidol 5 MG/2 ML VIAL IVP ONE
[2023-04-10] MEDS ORDERED: BUPIVACAINE (PF) 0.25% 30 ML VIAL SQ ONE ×2 (13:21→13:54)
[2023-04-10] MEDS: ceFAZolin 3 GM in SODIUM CHLORIDE 0.9% 100 ML IVPB PRN ×2 (13:22→13:25)
[2023-04-10] MEDS ORDERED: fentaNYL (PF) 50 MCG/ML 2 ML AMP ONE (13:25)
[2023-04-10] MEDS ORDERED: SUCCINYLCHOLINE CHLORIDE 200 MG/10 ML VIAL IV ONE (13:25)
[2023-04-10] MEDS ORDERED: PROPOFOL 10 MG/ML 20 ML VIAL IV ONE (13:25)
[2023-04-10] MEDS ORDERED: LIDOCAINE 2% INJ 20 MG/ML (2 ML VIAL) ONE (13:25)
[2023-04-10] MEDS ORDERED: MIDAZOLAM 2 MG/2 ML VIAL ONE (13:25)
[2023-04-10] MEDS ORDERED: HYDROmorphone (PF) 1 MG/ML ONE (13:25)
--- NOTE | 2023-04-10 14:08 | P.OP ---
Date of Procedure: 04/10/23 Preoperative Diagnosis: Internal derangement left knee Postoperative Diagnosis: 1. Tear medial and lateral meniscus left knee 2. Grade 4 chondromalacia femoral sulcus left knee 3. Reactive synovitis medial, lateral and suprapatellar compartments left knee 4. Medial plica left knee Procedure(s) Performed: 1. Arthroscopic partial medial and lateral meniscectomy left knee 2. Arthroscopic microfracture femoral sulcus left knee 3. Arthroscopic partial synovectomy medial, lateral and suprapatellar compartments left knee 4. Arthroscopic resection medial plica left knee Anesthesia: CIARAA, local Surgeon: Hector Riggs Estimated Blood Loss (ml): 5 Pathology: none sent Condition: stable Disposition: PACU Indications for Procedure: 57-year-old patient seen with progressive left knee pain. After having treatment options discussed, he elected to proceed with arthroscopy. Operative Findings: See description of procedure Description of Procedure: Patient was taken to the operative suite. Patient underwent a general anesthetic by the department of anesthesia. Patient was given preoperative antibiotics. The left lower extremity was placed in a well-padded arthroscopic leg del angel. The left leg was prepped and draped in the normal sterile orthopedic fashion. A lateral parapatellar and suprapatellar incision was made. Trochars were inserted. Arthroscopy was initiated. Suprapatellar pouch revealed diffuse thick reactive synovitis. The patellofemoral joint appeared to articulate congruently. There was grade 1 chondromalacia of the patella and grade 3/4 chondromalacia of the femoral sulcus with areas of large osteochondral flap tears. The scope was guided into the medial gutter. No loose bodies were identified however there was a plica which did seem to impinge along the medial femoral condyle with range of motion. The scope was then guided into the medial compartment. A medial parapatellar incision was made. Trocar inserted followed by probe. There was a radial tear involving the posterior horn of the medial meniscus. There were grade 1/2 chondromalacia changes of the medial femoral condyle with some osteochondral flap tears present. There was thick reactive synovitis anteriorly. I performed a partial medial meniscectomy getting down to stable meniscal tissue. I performed a chondroplasty of the medial femoral condyle getting down to stable osteochondral tissue. I performed a partial synovectomy decompressing the thick reactive synovitis. The residual meniscus was stable. The residual osteochondral surface was stable. There was good decompression of the synovitis. Scope and probe were then guided into the intercondylar notch. Cruciates were identified, probed and found to be stable. The scope and probe were then guided into lateral compartment. Was a radial tea r along the midbody area lateral meniscus. There was some thick reactive synovitis anteriorly. There was no smoking chondromalacia present lateral compartment. I performed a partial lateral meniscectomy getting down to stable meniscal tissue. I performed a partial synovectomy decompressing the reactive synovitis. The residual meniscus was stable. There was good decompression of the synovitis. The scope was in guided back into the suprapatellar compartment. I introduced a motorized shaver into the suprapatellar compartment. I guided into the medial gutter area and I resected the medial plica. I now performed a chondroplasty of the femoral sulcus getting down to stable osteochondral tissue. I performed a partial synovectomy decompressing the thick reactive synovitis. The shaver was removed. I took the knee through range of motion noted complete resection of the plica with no impingement. There was good decompression of synovitis. I did note a of exposed bone of the femoral sulcus measuring about 1 cm diameter. I introduced a microfracture awl and I performed a microfracture to that area of exposed bone femoral sulcus penetrating the bone with resultant bleeding at the microfracture site. The residual osteochondral surface was probed and was found to be stable. I now took one more look around the entire knee, no residual debris. Instruments were now removed from the joint. The joint was infiltrated with .25% Marcaine. Steri-Strips were applied to the portal sites. Sterile dressings were applied. The patient was placed into a TALISHA hose. No tourniquet was utilized. The patient was awakened, transferred to a bed and taken to recovery stable satisfactory condition.
[2023-04-10 14:16] VITALS: TEMP 97.6
[2023-04-10 14:56] VITALS: RESP 16
[2023-04-10 15:15] VITALS: BP 124/81; PULSE 89
== END 2023-04-10 15:54 | disposition home or self-care (01) ==
LOC: OR 11:27
PROVIDERS: ATTEND Orthopaedic Surgery
DX: S83.282A Other tear of lateral meniscus, current injury, left knee, initial encounter (principal); S83.242A Other tear of medial meniscus, current injury, left knee, initial encounter; M94.262 Chondromalacia, left knee; M65.862 Other synovitis and tenosynovitis, left lower leg; M67.52 Plica syndrome, left knee; X58.XXXA Exposure to other specified factors, initial encounter; Z98.890 Other specified postprocedural states; Z79.899 Other long term (current) drug therapy
CPT/HCPCS: 29880; 29879; J2250; J0330; J1100; J0690; J2405; J3010; J1170; J2704; J2001

== ENCOUNTER 2023-09-12 07:06 | Emergency (ER) | payer BC ==
[2023-09-12 07:16] VITALS: PULSE 73; TEMP 98.9
[2023-09-12] MEDS ORDERED: ONDANSETRON 4 MG/2 ML VIAL IVP STA (07:53)
[2023-09-12] MEDS ORDERED: SODIUM CHLORIDE 0.9% 1,000 ML IV STA (07:53)
[2023-09-12] MEDS ORDERED: HYDROmorphone 0.5 MG/0.5 ML SYRINGE IVP STA ×2 (07:53→09:10)
--- NOTE | 2023-09-12 08:05 | ED ---
Abdominal Pain HPI - General Chief Complaint: Abdominal Pain Stated Complaint: Back pain, vomiting Time Seen by Provider: 09/12/23 07:32 Source: patient, RN notes reviewed Mode of arrival: ambulatory Limitations: no limitations - History of Present Illness Initial Comments: This is a 57-year-old male who presents to the emergency department for right flank pain. States that this started yesterday around 4 PM and is wrapping around to the right lower quadrant. Reports associated nausea and vomiting. This feels similar to kidney stones that he has had in the past, which was most recently about 5 years ago. States that he saw his PCP yesterday and was found to have blood but no infection in his urine. MD Complaint: abdominal pain, flank pain - Related Data Home Medications Medication Instructions Recorded Confirmed Esomeprazole Magnesium [NexIUM] 40 mg PO DAILY 02/11/19 09/12/23 Phentermine HCl [Adipex-P] 37.5 mg PO DAILY 09/12/23 09/12/23 Previous Rx's Medication Instructions Recorded HYDROcodone/APAP 5-325MG [Cambridge 1 tab PO Q6HR PRN 3 Days #12 tab 09/12/23 5-325] Ondansetron Odt [Zofran Odt] 4 mg PO Q8HR PRN #15 tab 09/12/23 Sulfamethox-Tmp 800-160Mg [Bactrim 1 tab PO Q12HR 7 Days #14 tab 09/12/23 DS 800-160 mg] Tamsulosin [Flomax] 0.4 mg PO DAILY 7 Days #7 cap 09/12/23 Allergies Allergy/AdvReac Type Severity Reaction Status Date / Time naproxen [From Aleve] Allergy Dyspnea Verified 09/12/23 08:06 Review of Systems ROS Statement: Those systems with pertinent positive or pertinent negative responses have been documented in the HPI. ROS Other: All systems not noted in ROS Statement are negative. Past Medical History Past Medical History: Cancer, GERD/Reflux, Skin Disorder, Sleep Apnea/CPAP/BIPAP Additional Past Medical History / Comment(s): psoriasis, has cpap, cancer lt kidney,kidney stones History of Any Multi-Drug Resistant Organisms: None Reported Past Surgical History: Hernia Repair Additional Past Surgical History / Comment(s): colonoscopy, kidney removal (lft) scrotal repair, orthoscopic knee repair April 2023 Past Anesthesia/Blood Transfusion Reactions: Motion Sickness Additional Past Anesthesia/Blood Transfusion Reaction / Comment(s): . Past Psychological History: No Psychological Hx Reported Smoking Status: Former smoker Past Alcohol Use History: None Reported Past Drug Use History: None Reported - Past Family History Mother Family Medical History: No Reported History General Exam Limitations: no limitations General appearance: alert, in distress Head exam: Present: atraumatic, normocephalic, normal inspection Respiratory exam: Present: normal lung sounds bilaterally. Absent: respiratory distress, wheezes, rales, rhonchi, stridor Cardiovascular Exam: Present: regular rate, normal rhythm, normal heart sounds. Absent: systolic murmur, diastolic murmur, rubs, gallop, clicks GI/Abdominal exam: Present: soft, tenderness (RLQ), normal bowel sounds. Absent: distended Back exam: Present: CVA tenderness (R). Absent: CVA tenderness (L) Neurological exam: Present: alert, oriented X3, CN II-XII intact Psychiatric exam: Present: normal affect, normal mood Skin exam: Present: warm, dry, intact, normal color. Absent: rash Course Vital Signs 09/12/23 09/12/23 07:11 10:35 Temperature 98.9 F Pulse Rate 73 Respiratory 18 17 Rate Blood Pressure 183/93 162/96 O2 Sat by Pulse 95 Oximetry Medical Decision Making - Medical Decision Making This is a 57-year-old male who presents to the emergency department for right flank pain and right lower quadrant pain. Was pt. sent in by a medical professional or institution? @ -No Did you speak to anyone other than the patient for history? @ -No Did you review nursing and triage notes? @ -Yes, and I agree, it is accurate with regards to the patient's symptoms. Were old charts reviewed? @ -No Differential Diagnosis? @ -Differential Abdominal Pain Men: Appendicitis, cholecystitis, diverticulosis, ischemic bowel, pancreatitis, hepatitis, UTI, gastroenteritis, AAA, incarcerated hernia, bowel obstruction, constipation, inflammatory bowel, hepatitis, peptic ulcer disease, splenic infarction, perforated viscus, testicular torsion, this is not meant to be an all-inclusive list EKG interpreted by me (3pts min.)? @ -Not obtained X-rays interpreted by me (1pt min.)? @ -Not obtained CT interpreted by me (1pt min.)? @ -Computed tomography scan of the abdomen and pelvis obtained. My interpretation identifies a right ureteral calculus. U/S interpreted by me (1pt. min.)? @ -Not obtained What testing was considered but not performed? (CT, X-rays, U/S, labs)? Why? @ -None What meds were considered but not given? Why? @ -None Did you discuss the management of the patient with other professionals? @ -No Did you reconcile home meds? @ -No Was smoking cessation discussed for >3mins.? @ -No Was critical care preformed (if so, how long)? @ -No Were there social determinants of health that impacted care today? How? (Homelessness, low income, unemployed, alcoholism, drug addiction, transportation, low edu. Level, literacy, decrease access to med. care, [facility], rehab)? @ -No Was there de-escalation of care discussed even if they declined? (Discuss DNR or withdrawal of care, Hospice)? @ -No What co-morbidities impacted this encounter? (DM, HTN, Smoking, COPD, CAD, Cancer, CVA, Hep., AIDS, mental health diagnosis, sleep apnea, morbid obesity)? @ -Morbid obesity, hx of kidney cancer Was patient admitted / discharged? @ -Discharged. Lab work obtained revealing leukocytosis. Kidney function has also decreased when compared with prior, however the most recent value for ariana ordoñez was in 2020. Urinalysis demonstrates a large amount of blood with some white blood cells and white blood cell clumps. Computed tomography scan of the abdomen and pelvis obtained. This identified a 3.7mm calculus in the distal right ureter with moderate hydroureteronephrosis. He was also found to have a punctate stone just proximally and a 3 mm stone in the right upper ureter. His symptoms were well controlled in the emergency department. Patient does not meet criteria for a septic stone. Urinalysis is not overtly positive for infection, however given the multiple stones and the presence of white blood cells, we will start the patient on a course of antibiotics. Urine was sent for culture and he was given a dose of ceftriaxone in the emergency department. Prescription for Bactrim, Cambridge, Zofran, and Flomax provided with dosing instructions reviewed. He was also given information for follow-up with urology, and I advised he contact them for a follow-up appointment. Patient discharged home in stable condition. Undiagnosed new problem with uncertain prognosis? @ -None Drug Therapy requiring intensive monitoring for toxicity (Heparin, Nitro, Insulin, Cardizem)? @ -None Were any procedures done? @ -None Diagnosis/symptom? @ -Right ureteral calculus Acute, or Chronic, or Acute on Chronic? @ -Acute Uncomplicated (without systemic symptoms) or Complicated (systemic symptoms)? @ -Uncomplicated Side effects of treatment? @ -None Exacerbation, Progression, or Severe Exacerbation] @ -Not applicable Poses a threat to life or bodily function? @ -No Return precautions reviewed in depth, the patient is instructed to return to the emergency department with any new, worsening, or concerning symptoms. Patient verbalized understanding. This case was discussed in detail with the attending ED physician, Dr. Barba. Presentation, findings, and treatment plan discussed in detail as well. - Lab Data Result diagrams: 09/12/23 08:07 09/12/23 08:07 Lab Results 09/12/23 09/12/23 09/12/23 Range/Units 08:07 08:07 08:07 WBC 14.9 H (3.8-10.6) k/uL RBC 5.32 (4.30-5.90) m/uL Hgb 15.9 (13.0-17.5) gm/dL Hct 47.3 (39.0-53.0) % MCV 88.8 (80.0-100.0) fL MCH 29.9 (25.0-35.0) pg MCHC 33.6 (31.0-37.0) g/dL RDW 14.0 (11.5-15.5) % Plt Count 318 (150-450) k/uL MPV 8.0 Neutrophils % 85 % Lymphocytes % 8 % Monocytes % 6 % Eosinophils % 1 % Basophils % 0 % Neutrophils # 12.6 H (1.3-7.7) k/uL Lymphocytes # 1.2 (1.0-4.8) k/uL Monocytes # 0.8 (0-1.0) k/uL Eosinophils # 0.2 (0-0.7) k/uL Basophils # 0.0 (0-0.2) k/uL Sodium 142 (137-145) mmol/L Potassium 4.5 (3.5-5.1) mmol/L Chloride 106 (98-107) mmol/L Carbon Dioxide 21 L (22-30) mmol/L Anion Gap 15 mmol/L BUN 33 H (9-20) mg/dL Creatinine 1.91 H (0.66-1.25) mg/dL Est GFR (CKD-EPI)AfAm 44 (>60 ml/min/1.73 sqM) Est GFR (CKD-EPI)NonAf 38 (>60 ml/min/1.73 sqM) Glucose 143 H (74-99) mg/dL Plasma Lactic Acid Steven (0.7-2.0) mmol/L Calcium 10.0 (8.4-10.2) mg/dL Total Bilirubin 0.5 (0.2-1.3) mg/dL AST 22 (17-59) U/L ALT 24 (4-49) U/L Alkaline Phosphatase 111 (38-126) U/L Total Protein 7.2 (6.3-8.2) g/dL Albumin 4.3 (3.5-5.0) g/dL Urine Color Light Red Urine Appearance Slightly Cloudy (Clear) Urine pH 6.0 (5.0-8.0) Ur Specific Schoolcraft 1.020 (1.001-1.035) Urine Protein 2+ H (Negative) Urine Glucose (UA) Negative (Negative) Urine Ketones Negative (Negative) Urine Blood Large H (Negative) Urine Nitrite Negative (Negative) Urine Bilirubin Negative (Negative) Urine Urobilinogen 0.2 (<2.0) mg/dL Ur Leukocyte Esterase Small H (Negative) Urine RBC >182 H (0-5) /hpf Urine WBC 97 H (0-5) /hpf Urine WBC Clumps Many H (None) /hpf Ur Squamous Epith Cells 6 H (0-4) /hpf Urine Bacteria Occasional H (None) /hpf Urine Mucus Few H (None) /hpf 09/12/23 Range/Units 08:07 WBC (3.8-10.6) k/uL RBC (4.30-5.90) m/uL Hgb (13.0-17.5) gm/dL Hct (39.0-53.0) % MCV (80.0-100.0) fL MCH (25.0-35.0) pg MCHC (31.0-37.0) g/dL RDW (11.5-15.5) % Plt Count (150-450) k/uL MPV Neutrophils % % Lymphocytes % % Monocytes % % Eosinophils % % Basophils % % Neutrophils # (1.3-7.7) k/uL Lymphocytes # (1.0-4.8) k/uL Monocytes # (0-1.0) k/uL Eosinophils # (0-0.7) k/uL Basophils # (0-0.2) k/uL Sodium (137-145) mmol/L Potassium (3.5-5.1) mmol/L Chloride (98-107) mmol/L Carbon Dioxide (22-30) mmol/L Anion Gap mmol/L BUN (9-20) mg/dL Creatinine (0.66-1.25) mg/dL Est GFR (CKD-EPI)AfAm (>60 ml/min/1.73 sqM) Est GFR (CKD-EPI)NonAf (>60 ml/min/1.73 sqM) Glucose (74-99) mg/dL Plasma Lactic Acid Steven 1.8 (0.7-2.0) mmol/L Calcium (8.4-10.2) mg/dL Total Bilirubin (0.2-1.3) mg/dL AST (17-59) U/L ALT (4-49) U/L Alkaline Phosphatase (38-126) U/L Total Protein (6.3-8.2) g/dL Albumin (3.5-5.0) g/dL Urine Color Urine Appearance (Clear) Urine pH (5.0-8.0) Ur Specific Schoolcraft (1.001-1.035) Urine Protein (Negative) Urine Glucose (UA) (Negative) Urine Ketones (Negative) Urine Blood (Negative) Urine Nitrite (Negative) Urine Bilirubin (Negative) Urine Urobilinogen (<2.0) mg/dL Ur Leukocyte Esterase (Negative) Urine RBC (0-5) /hpf Urine WBC (0-5) /hpf Urine WBC Clumps (None) /hpf Ur Squamous Epith Cells (0-4) /hpf Urine Bacteria (None) /hpf Urine Mucus (None) /hpf - Radiology Data Radiology results: report reviewed, image reviewed Disposition Clinical Impression: Ureteral calculus, right, Hydroureteronephrosis Disposition: HOME SELF-CARE Instructions (If sedation given, give patient instructions): Renal Colic (ED), Ureteral Stones (ED) Additional Instructions: Return to the emergency department with any new, worsening, or concerning symptoms. Take the antibiotic as prescribed for 7 days. Take Tylenol as needed for pain relief and take the Cambridge sparingly when your pain is the most severe. Take the Flomax daily for 7 days or until you pass the stone. Take the Zofran up to every 8 hours as needed for nausea and vomiting. Follow-up with urology as listed below. Follow up with your primary care provider in 1-2 days. Prescriptions: Sulfamethox-Tmp 800-160Mg [Bactrim DS 800-160 mg] 1 tab PO Q12HR 7 Days #14 tab Tamsulosin [Flomax] 0.4 mg PO DAILY 7 Days #7 cap HYDROcodone/APAP 5-325MG [Cambridge 5-325] 1 tab PO Q6HR PRN 3 Days #12 tab PRN Reason: Pain Ondansetron Odt [Zofran Odt] 4 mg PO Q8HR PRN #15 tab PRN Reason: Nausea And Vomiting Is patient prescribed a controlled substance at d/c from ED?: Yes When asked, does pt state using other controlled substances?: No If prescribed controlled substance>3 days was MAPS reviewed?: Prescribed <3 Days Referrals: Gee Logan DO [Primary Care Provider] - 1-2 days Deepak Madera MD [STAFF PHYSICIAN] - 1-2 days
[2023-09-12 08:17] LABS: Basophils % (A) 0 %; Eosinophils # (A) 0.2 k/uL (0-0.7); Eosinophils % (A) 1 %; HCT 47.3 % (39.0-53.0); HGB 15.9 gm/dL (13.0-17.5); Lymphocytes # (A) 1.2 k/uL (1.0-4.8); Lymphocytes % (A) 8 %; MCH 29.9 pg (25.0-35.0); MCHC 33.6 g/dL (31.0-37.0); MCV 88.8 fL (80.0-100.0); Monocytes # (A) 0.8 k/uL (0-1.0); Monocytes % (A) 6 %; Neutrophils # (A) 12.6 k/uL (1.3-7.7); Neutrophils % (A) 85 %; Platelet Count 318 k/uL (150-450); RBC 5.32 m/uL (4.30-5.90); WBC 14.9 k/uL (3.8-10.6)
[2023-09-12 08:20] LABS: Appearance,Urine Slightly Cloudy (Clear); Bilirubin,Urine Negative (Negative); Blood,Urine Large (Negative); Color,Urine Light Red; Glucose,Urine (UA) Negative (Negative); Ketones,Urine Negative (Negative); Leukocyte Esterase,Urine Small (Negative); Nitrite,Urine Negative (Negative); Protein,Urine 2+ (Negative); Urobilinogen,Urine 0.2 mg/dL (<2.0)
[2023-09-12 08:23] LABS: Bacteria,Urine Occasional /hpf; Mucus,Urine Few /hpf; RBC,Urine >182 /hpf (0-5); Squamous Epithelial Cell,Urine 6 /hpf (0-4); WBC,Urine 97 /hpf (0-5)
[2023-09-12 08:35] LABS: ALT 24 U/L (4-49); AST 22 U/L (17-59); African American GFR (CKD) 44 (>60 ml/min/1.73 sqM); Albumin 4.3 g/dL (3.5-5.0); Alkaline Phosphatase 111 U/L (38-126); Anion Gap 15 mmol/L; Blood Urea Nitrogen 33 mg/dL (9-20); Carbon Dioxide 21 mmol/L (22-30); Chloride 106 mmol/L (98-107); Glucose 143 mg/dL (74-99); Non-African American GFR(CKD) 38 (>60 ml/min/1.73 sqM); Potassium 4.5 mmol/L (3.5-5.1); Sodium 142 mmol/L (137-145); Total Bilirubin 0.5 mg/dL (0.2-1.3); Total Protein 7.2 g/dL (6.3-8.2)
--- NOTE | 2023-09-12 09:18 | CT ---
EXAMINATION TYPE: CT abdomen pelvis wo con CT DLP: 1696.8 mGycm, Automated exposure control for dose reduction was used. DATE OF EXAM: 09/12/2023 8:59 AM COMPARISON: CT abdomen pelvis with contrast 11/15/2020 CLINICAL INDICATION:Male, 57 years old with history of Right flank pain; RIGHT FLANK PAIN TECHNIQUE: Axial CT of the abdomen and pelvis. Sagittal and coronal reformats were created on a [employer] workstation. Contrast used: mL of , (none if empty) Oral contrast used: without Oral Contrast (none if empty) FINDINGS: Exam is limited by lack of contrast. LOWER CHEST: Calcified granuloma towards the left lung base. No acute infiltrate or sizable effusion. Small sliding hiatal hernia. ABDOMEN LIVER: Stable unenhanced appearance. GALLBLADDER AND BILE DUCTS: Unremarkable. PANCREAS: Unremarkable. SPLEEN: Unremarkable. ADRENAL GLANDS: Unremarkable. KIDNEYS AND URETERS: Status post left nephrectomy redemonstrated. In place of the previous 4.1 x 3.4 cm soft tissue density at the inferior aspect of the nephrectomy bed, there is now a small stellate f ocus about 2.1 x 1.1 cm in size, with the appearance favoring scarring. Right sided moderate hydroureteronephrosis, with a 3.7 mm stone in the distal ureter just proximal to the bladder, as well as punctate stone suggested just proximally, and a 3 mm stone in the upper righ t ureter. There are a couple small calculi in the lower pole right kidney, largest 5.7 mm. Perinephri c stranding is present. PELVIS BLADDER: Incompletely distended but grossly unremarkable. REPRODUCTIVE: Nonenlarged prostate with mild parenchymal calcification. ABDOMEN & PELVIS STOMACH AND BOWEL: Stomach and small bowel are nondistended, no evidence of obstruction. Unremarkable appendix. Mild stool throughout colon. Scattered colonic diverticula without definite evidence of di verticulitis. PERITONEUM/RETROPERITONEUM: No evidence of pneumoperitoneum or free fluid. VASCULATURE: Moderate atherosclerotic calcification of the aorta and branches. No AAA. MUSCULOSKELETAL: No acute osseous abnormality is identified. [id number] degenerative changes of the included spine. LYMPH NODES: No gross evidence for lymphadenopathy. SOFT TISSUE/ABDOMINAL WALL: Tiny fat-containing umbilical region hernia. Stable mild scarring along t he anterior left abdominal wall. IMPRESSION: 1. Multiple small right renal and right ureteral calculi, with moderate right-sided hydroureteroneph rosis and perinephric stranding. 2. Status post left nephrectomy redemonstrated. Previous mass at the inferior aspect of the nephrect ash bed appears significantly improved, with smaller residual density here judged likely to represent scarring. Continued clinical correlation and follow-up advised.
[2023-09-12] MEDS ORDERED: cefTRIAXone IN SWFI 1,000 MG/10 ML SYRINGE IVP STA (10:15)
[2023-09-12 11:01] VITALS: BP 162/96; RESP 17
== END 2023-09-12 10:52 | disposition home or self-care (01) ==
LOC: EC 07:06
DX: N13.2 Hydronephrosis with renal and ureteral calculous obstruction (principal); K21.9 Gastro-esophageal reflux disease without esophagitis; Z87.891 Personal history of nicotine dependence; Z79.899 Other long term (current) drug therapy
CPT/HCPCS: 36415; 80053; 83605; 85025; 81001; 87086; 74176; 99284; 96374; 96375 ×2; 96376; 96361 ×2; J2405; J0696; J1170

== ENCOUNTER 2023-09-12 18:47 | Observation (INO) | payer BC ==
[2023-09-12 20:36] LABS: Basophils % (A) 0 %; Eosinophils % (A) 0 %; HCT 46.2 % (39.0-53.0); HGB 15.1 gm/dL (13.0-17.5); Lymphocytes # (A) 1.3 k/uL (1.0-4.8); Lymphocytes % (A) 8 %; MCH 29.3 pg (25.0-35.0); MCHC 32.8 g/dL (31.0-37.0); MCV 89.2 fL (80.0-100.0); Mean Platelet Volume 7.5; Monocytes # (A) 1.1 k/uL (0-1.0); Monocytes % (A) 7 %; Neutrophils # (A) 12.7 k/uL (1.3-7.7); Neutrophils % (A) 83 %; Platelet Count 298 k/uL (150-450); RBC 5.18 m/uL (4.30-5.90); RDW 13.7 % (11.5-15.5); WBC 15.3 k/uL (3.8-10.6)
[2023-09-12 20:38] LABS: INR 0.9 (<1.2); Partial Thromboplastin Time 26.7 sec (22.0-30.0); Prothrombin Time 10.1 sec (10.0-12.5)
[2023-09-12] MEDS ORDERED: ONDANSETRON 4 MG/2 ML VIAL IVP STA (20:38)
[2023-09-12] MEDS ORDERED: HYDROmorphone 1 MG/ML 1 ML SYRINGE IVP STA (20:38)
--- NOTE | 2023-09-12 20:40 | ED ---
Chest Pain HPI - General Chief Complaint: Chest Pain Stated Complaint: Kidney stone Time Seen by Provider: 09/12/23 18:55 Source: patient Limitations: no limitations - History of Present Illness Initial Comments: 57-year-old male with past medical history of left renal cancer status post nephrectomy 4 years ago who presents to the emergency department stating that he has not urinated. Patient was seen in our emergency department earlier today. He was complaining of flank pain. He was found to be passing several kidney stones on the right and had associated hydronephrosis. He does have an isolated kidney due to history of kidney cancer. States that he last urinated at 3:00 this morning. He was discharged home with pain medications, Bactrim and Flomax. He did take one of the Flomax but continues to be unable to void. States that he does have chest pain now which was not present previously. Located over the chest wall on the left. Described as a pressure sensation. No history of cardiac disease. No fevers, chills or cough. No other alleviating, vice chancellor modifying factors - Related Data Home Medications Medication Instructions Recorded Confirmed Esomeprazole Magnesium [NexIUM] 40 mg PO DAILY 02/11/19 09/12/23 Phentermine HCl [Adipex-P] 37.5 mg PO DAILY 09/12/23 09/12/23 Previous Rx's Medication Instructions Recorded HYDROcodone/APAP 5-325MG [[place] 1 tab PO Q6HR PRN 3 Days #12 tab 09/12/23 5-325] Ondansetron Odt [Zofran Odt] 4 mg PO Q8HR PRN #15 tab 09/12/23 Sulfamethox-Tmp 800-160Mg [Bactrim 1 tab PO Q12HR 7 Days #14 tab 09/12/23 DS 800-160 mg] Tamsulosin [Flomax] 0.4 mg PO DAILY 7 Days #7 cap 09/12/23 Allergies Allergy/AdvReac Type Severity Reaction Status Date / Time naproxen [From Aleve] Allergy Dyspnea Verified 09/12/23 08:06 Review of Systems ROS Statement: Those systems with pertinent positive or pertinent negative responses have been documented in the HPI. ROS Other: All systems not noted in ROS Statement are negative. Past Medical History Past Medical History: Cancer, GERD/Reflux, Skin Disorder, Sleep Apnea/CPAP/BIPAP Additional Past Medical History / Comment(s): psoriasis, has cpap, cancer lt kidney,kidney stones History of Any Multi-Drug Resistant Organisms: None Reported Past Surgical History: Hernia Repair, Orthopedic Surgery Additional Past Surgical History / Comment(s): colonoscopy, kidney removal (lft) scrotal repair, orthoscopic knee repair April 2023 Past Anesthesia/Blood Transfusion Reactions: Motion Sickness Additional Past Anesthesia/Blood Transfusion Reaction / Comment(s): . Past Psychological History: No Psychological Hx Reported Smoking Status: Former smoker Past Alcohol Use History: None Reported Past Drug Use History: None Reported - Past Family History Mother Family Medical History: No Reported History General Exam Limitations: no limitations General appearance: alert, in no apparent distress Head exam: Present: atraumatic, normocephalic, normal inspection Eye exam: Present: normal appearance, PERRL, EOMI. Absent: scleral icterus, conjunctival injection, periorbital swelling ENT exam: Present: normal exam, mucous membranes moist Neck exam: Present: normal inspection. Absent: tenderness, meningismus, lymphadenopathy Respiratory exam: Present: normal lung sounds bilaterally. Absent: respiratory distress, wheezes, rales, rhonchi, stridor Cardiovascular Exam: Present: regular rate, normal rhythm, normal heart sounds. Absent: systolic murmur, diastolic murmur, rubs, gallop, clicks GI/Abdominal exam: Present: soft, normal bowel sounds. Absent: distended, tenderness, guarding, rebound, rigid Extremities exam: Present: normal inspection, full ROM, normal capillary refill. Absent: tenderness, pedal edema, joint swelling, calf tenderness Back exam: Present: normal inspection Neurological exam: Present: alert, oriented X3, CN II-XII intact Psychiatric exam: Present: normal affect, normal mood Skin exam: Present: warm, dry, intact, normal color. Absent: rash Course Vital Signs 09/12/23 09/12/23 09/12/23 18:49 19:02 20:00 Temperature 98.4 F Pulse Rate 66 64 66 Respiratory 16 22 15 Rate Blood Pressure 166/87 159/81 O2 Sat by Pulse 98 96 Oximetry 09/12/23 09/12/23 21:00 22:00 Temperature Pulse Rate 68 60 Respiratory 16 23 Rate Blood Pressure 147/74 145/78 O2 Sat by Pulse 99 95 Oximetry Chest Pain MDM - MDM Was pt. sent in by a medical professional or institution (BIJAN Stein, [employer], urgent care, hospital, or jail...) When possible be specific @ -No Did you speak to anyone other than the patient for history (EMS, parent, family, police, friend...)? What history was obtained from this source @ -spoke with the patient's Did you review nursing and triage notes (agree or disagree)? Why? @ -I reviewed and agree with nursing and triage notes Were old charts reviewed (outside hosp., previous admission, EMS record, old EKG, old radiological studies, urgent care reports/EKG's, jail records)? Report findings @ -I reviewed the patient's ED visit from earlier today Differential Diagnosis (chest pain, altered mental status, abdominal pain women, abdominal pain men, vaginal bleeding, weakness, fever, dyspnea, syncope, headac he, dizziness, GI bleed, back pain, seizure, CVA, palpatations, mental health, musculoskeletal)? @ -Differential Chest Pain: Stable Angina, Unstable Angina, STEMI, NSTEMI Aortic Dissection, Pneumothorax, Musculoskeletal, Esophageal Spasm GERD, Cholecystitis, Pancreatitis, Zoster, this is not meant to be an all-inclusive list. EKG interpreted by me (3pts min.). @ -Yes and demonstrates sinus rhythm with a rate of 68. TN interval 134. QRS 112. QTC of 407. Patient has Q waves in 3, aVF X-rays interpreted by me (1pt min.). @ -Yes and demonstrates no acute intrathoracic process CT interpreted by me (1pt min.). @ -None done U/S interpreted by me (1pt. min.). @ -None done What testing was considered but not performed or refused? (CT, X-rays, U/S, labs)? Why? @ -None What meds were considered but not given or refused? Why? @ -None Did you discuss the management of the patient with other professionals (prof garnett i.e. BIJAN Stein, [employer], lab, RT, psych nurse, social services director, cable installer repairer, teacher, marketing and communications officer, case mgr)? Give summary @ -Spoke with Dr. Huggins who does present to the ED to evaluate the patient Was smoking cessation discussed for >3mins.? @ -No Was critical care preformed (if so, how long)? @ -No Were there social determinants of health that impacted care today? How? (Homelessness, low income, unemployed, alcoholism, drug addiction, transportation, low edu. Level, literacy, decrease access to med. care, fpc, rehab)? @ -No Was there de-escalation of care discussed even if they declined (Discuss DNR or withdrawal of care, Hospice)? DNR status @ -No What co-morbidities impacted this encounter? (DM, HTN, Smoking, COPD, CAD, Cancer, CVA, ARF, Chemo, Hep., AIDS, mental health diagnosis, sleep apnea, morbid obesity)? @ -Renal cancer status post left nephrectomy Was patient admitted / discharged? Hospital course, mention meds given and route, prescriptions, significant lab abnormalities, going to OR and other pertinent info. @ -Admitted. Upon arrival patient was placed into room 1. Thorough history and physical exam was performed. He is placed on continuous pulse ox and cardiac monitoring. 12 EKG is obtained. Laboratory studies are conducted. I did review his CT from earlier today. Patient does have worsening kidney function with 15 mL noted on bladder scan. Carpenter is placed and patient is found to be anuric. He was given Dilaudid for pain control and 4 mg of Zofran. Results are discussed with Dr. Huggins who does present to the ED to evaluate the patient. He would like the patient made nothing by mouth. Patient will go for stents in the morning. I did speak with Dr. sandra for the admission. States that the patient will need cardiac clearance due to his reported recent chest pain. Patient was agreeable to admission and is awaiting a bed on the floor Undiagnosed new problem with uncertain prognosis? @ -No Drug Therapy requiring intensive monitoring for toxicity (Heparin, Nitro, Insulin, Cardizem)? @ -No Were any procedures done? @ -No Diagnosis/symptom? @ -Acute ureterolithiasis - right, moderate hydronephrosis, a K I, leukocytosis, history of renal cancer with left nephrectomy, acute chest pain Acute, or Chronic, or Acute on Chronic? @ -acute Uncomplicated (without systemic symptoms) or Complicated (systemic symptoms)? @ -Complicated Side effects of treatment? @ -No Exacerbation, Progression, or Severe Exacerbation? @ -No Poses a threat to life or bodily function? How? (Chest pain, [place], [place], pneumonia, PE, COPD, DKA, ARF, appy, cholecystitis, CVA, Diverticulitis, Homicidal, Suicidal, threat to staff... and all critical care pts) @ -Yes patient in acute renal failure due to his ureterolithiasis Disposition Clinical Impression: Ureteral calculus, right, Hydroureteronephrosis, DOYLE (acute kidney injury), Chest pain Disposition: ADMITTED IP TO THIS HOSP Condition: Serious Is patient prescribed a controlled substance at d/c from ED?: No Time of Disposition: 22:23 Decision to Admit Reason: Admit from EC Decision Date: 09/12/23 Decision Time: 22:24
[2023-09-12 20:41] LABS: ALT 26 U/L (4-49); AST 25 U/L (17-59); African American GFR (CKD) 21 (>60 ml/min/1.73 sqM); Albumin 3.7 g/dL (3.5-5.0); Alkaline Phosphatase 104 U/L (38-126); Anion Gap 14 mmol/L; Blood Urea Nitrogen 45 mg/dL (9-20); Calcium 9.2 mg/dL (8.4-10.2); Carbon Dioxide 17 mmol/L (22-30); Chloride 107 mmol/L (98-107); Glucose 112 mg/dL (74-99); Non-African American GFR(CKD) 18 (>60 ml/min/1.73 sqM); Potassium 4.7 mmol/L (3.5-5.1); Sodium 138 mmol/L (137-145); Total Bilirubin 0.4 mg/dL (0.2-1.3); Total Protein 6.4 g/dL (6.3-8.2)
[2023-09-12] MEDS ORDERED: SODIUM CHLORIDE 0.9% 1,000 ML IV ONE ×2 (21:01→21:16)
--- NOTE | 2023-09-12 21:27 | XR ---
EXAMINATION TYPE: XR chest 2V DATE OF EXAM: 09/12/2023 8:21 PM CLINICAL INDICATION:Male, 57 years old with history of Chest Pain; [facility] COMPARISON: Chest x-ray 02/23/2021 TECHNIQUE: XR chest 2V. Frontal PA and lateral views of the chest. FINDINGS: Lines/Tubes: EKG leads overlie the chest. No indwelling lines are seen. Heart/mediastinum: Cardiomediastinal silhouette is well defined. Heart size is normal. Mediastinum appears normal. Pulmonary vascularity: Not increased, Lungs/Pleura: Lungs are again hyperinflated with some flattening of the diaphragm suggestive of backg round COPD. There is no evidence of pleural effusion, focal consolidation, or pneumothorax. Small ca lcified granuloma towards the left lung base, better seen on CT. Small nodular density in the right m idlung zone suggested, may be calcified. If concern for noncalcified lung nodules, low dose screening CT chest could be obtained as an outpatient. Musculoskeletal: No acute osseous abnormality demonstrated in the limits of the exam. Mild degenerat edmund changes of the spine and shoulders. Other findings: None. IMPRESSION: No acute cardiopulmonary abnormality.
[2023-09-12] MEDS ORDERED: cefTRIAXone IN SWFI 1,000 MG/10 ML SYRINGE IVP STA (22:22)
[2023-09-12] MEDS ORDERED: NALOXONE 0.4 MG/ML 1 ML VIAL IV PRN ×2 (22:25→23:52)
[2023-09-12] MEDS ORDERED: HYDROmorphone 1 MG/ML 1 ML SYRINGE IVP PRN (22:25)
[2023-09-12] MEDS ORDERED: ONDANSETRON 4 MG/2 ML VIAL IVP PRN (22:25)
--- NOTE | 2023-09-12 22:28 | P.GSCN ---
History of Present Illness Consult date: 09/12/23 History of present illness: 57 yo male came to the er this am with right flank pain. He was found to have two right ureteral stones in a solitary kidney. He had a left radical nephrectomy by me for renal cell ca in 2019. He was d/c home of flomax, pain meds and antibiotic only to return this pm with chest pain as well as persistent flank pain. he is also anuric. He has had only one stone. He is admited for the evaluation of the chest pain as well as probable stent in the right ureter to relieve the anuria. Review of Systems All systems: negative - Constitutional Denies fever, Denies weight loss - EENT Eyes: denies blurred vision Ears, nose, mouth and throat: Denies dysphagia - Cardiovascular Denies chest pain, Denies shortness of breath - Respiratory Denies cough, Denies 7 - Gastrointestinal Reports as per HPI - Genitourinary Denies dysuria, Denies hematuria - Integumentary Denies rash, Denies unusual bruising - Neurological Denies headaches, Denies syncope - Hematologic/Lymphatic Denies easy bleeding, Denies easy bruising Past Medical History Past Medical History: Cancer, GERD/Reflux, Skin Disorder, Sleep Apnea/CPAP/BIPAP Additional Past Medical History / Comment(s): psoriasis, has cpap, cancer lt kidney,kidney stones History of Any Multi-Drug Resistant Organisms: None Reported Past Surgical History: Hernia Repair, Orthopedic Surgery Additional Past Surgical History / Comment(s): colonoscopy, kidney removal (lft) scrotal repair, orthoscopic knee repair April 2023 Past Anesthesia/Blood Transfusion Reactions: Motion Sickness Additional Past Anesthesia/Blood Transfusion Reaction / Comm: . Past Psychological History: No Psychological Hx Reported Smoking Status: Former smoker Past Alcohol Use History: None Reported Past Drug Use History: None Reported - Past Family History Mother Family Medical History: No Reported History Medications and Allergies Home Medications Medication Instructions Recorded Confirmed Type Esomeprazole Magnesium [NexIUM] 40 mg PO DAILY 02/11/19 09/12/23 History HYDROcodone/APAP 5-325MG [[place] 1 tab PO Q6HR PRN 3 Days #12 tab 09/12/23 09/12/23 Rx 5-325] Ondansetron Odt [Zofran Odt] 4 mg PO Q8HR PRN #15 tab 09/12/23 09/12/23 Rx Phentermine HCl [Adipex-P] 37.5 mg PO DAILY 09/12/23 09/12/23 History Sulfamethox-Tmp 800-160Mg [Bactrim 1 tab PO Q12HR 7 Days #14 tab 09/12/23 09/12/23 Rx DS 800-160 mg] Tamsulosin [Flomax] 0.4 mg PO DAILY 7 Days #7 cap 09/12/23 09/12/23 Rx Allergies Allergy/AdvReac Type Severity Reaction Status Date / Time naproxen [From Aleve] Allergy Dyspnea Verified 09/12/23 08:06 Surgical - Exam Vital Signs Temp Pulse Resp BP Pulse Ox 98.4 F 66 16 166/87 98 09/12/23 18:49 09/12/23 18:49 09/12/23 18:49 09/12/23 18:49 09/12/23 18:49 - General well developed, well nourished, no distress - Eyes normal ocular movement, no icteric - ENT no hearing loss, no congestion - Neck no masses, trachea midline - Respiratory normal respiratory effort, clear to auscultation - Abdomen Abdomen: soft, non tender, no guarding, no rigid, no rebound - Integumentary no rash, no abnormal pigmentation - Neurologic no disoriented, no combative - Psychiatric oriented to time, oriented to person, oriented to place, speech is normal, memory intact Results - Labs 09/12/23 19:47 09/12/23 19:47 Abnormal Lab Results - Last 24 Hours (Table) 09/12/23 09/12/23 Range/Units 19:47 19:47 WBC 15.3 H (3.8-10.6) k/uL Neutrophils # 12.7 H (1.3-7.7) k/uL Monocytes # 1.1 H (0-1.0) k/uL Carbon Dioxide 17 L (22-30) mmol/L BUN 45 H (9-20) mg/dL Creatinine 3.59 H (0.66-1.25) mg/dL Glucose 112 H (74-99) mg/dL Diabetes panel 09/12/23 Range/Units 19:47 Sodium 138 (137-145) mmol/L Potassium 4.7 (3.5-5.1) mmol/L Chloride 107 (98-107) mmol/L Carbon Dioxide 17 L (22-30) mmol/L BUN 45 H (9-20) mg/dL Creatinine 3.59 H (0.66-1.25) mg/dL Glucose 112 H (74-99) mg/dL Calcium 9.2 (8.4-10.2) mg/dL AST 25 (17-59) U/L ALT 26 (4-49) U/L Alkaline Phosphatase 104 (38-126) U/L Total Protein 6.4 (6.3-8.2) g/dL Albumin 3.7 (3.5-5.0) g/dL Calcium panel 09/12/23 Range/Units 19:47 Calcium 9.2 (8.4-10.2) mg/dL Albumin 3.7 (3.5-5.0) g/dL Pituitary panel 09/12/23 Range/Units 19:47 Sodium 138 (137-145) mmol/L Potassium 4.7 (3.5-5.1) mmol/L Chloride 107 (98-107) mmol/L Carbon Dioxide 17 L (22-30) mmol/L BUN 45 H (9-20) mg/dL Creatinine 3.59 H (0.66-1.25) mg/dL Glucose 112 H (74-99) mg/dL Calcium 9.2 (8.4-10.2) mg/dL Adrenal panel 09/12/23 Range/Units 19:47 Sodium 138 (137-145) mmol/L Potassium 4.7 (3.5-5.1) mmol/L Chloride 107 (98-107) mmol/L Carbon Dioxide 17 L (22-30) mmol/L BUN 45 H (9-20) mg/dL Creatinine 3.59 H (0.66-1.25) mg/dL Glucose 112 H (74-99) mg/dL Calcium 9.2 (8.4-10.2) mg/dL Total Bilirubin 0.4 (0.2-1.3) mg/dL AST 25 (17-59) U/L ALT 26 (4-49) U/L Alkaline Phosphatase 104 (38-126) U/L Total Protein 6.4 (6.3-8.2) g/dL Albumin 3.7 (3.5-5.0) g/dL - Imaging CT scan - abdomen: report reviewed, image reviewed CT scan - pelvis: report reviewed, image reviewed Assessment and Plan Assessment: Impression: right ureteral stones with obstruction in a solitary kidney. Anuria. Chest pain. Plan: the patient will be made npo. He will be evaluated by the er and medical service for the chest Pain. If this is negative then tomorrow he will undergo a cysto with right ureteral stent by Dr saucedo in my absence.
[2023-09-12] MEDS: SODIUM CHLORIDE 0.9% 1,000 ML IV SCH (22:34)
--- NOTE | 2023-09-13 04:29 | P.HPIM ---
History of Present Illness H&P Date: 09/13/23 Patient is a 57-year-old male with a PMH of kidney cancer status post nephrectomy 4 years ago who presented to the emergency room for chest discomfort and decreased urination. Patient was seen in the emergency room earlier in the day with complaints of right flank pain radiating down into the groin with nausea and vomiting ongoing since 4 PM the day prior. On imaging, he was noted to have multiple small right-sided renal calculi with moderate hydroureteronephrosis. The patient was also noted to have a UTI and was discharged home on a course of oral antibiotics. He now returns to the emergency room reporting that he has not urinated since 3 AM on 09/12. He notes ongoing right flank pain without radiation now, rated a 3 out of 10. He also reports left-sided chest discomfort earlier today around 2 PM which lasted less than an hour, pressure-like in sensation, nonradiating, nonpleuritic, without associated shortness of breath, dizziness, or diaphoresis. Denies any prior history of CAD or MIs. Reports excellent as it has tolerance at baseline. Denies fever, chills, cough. Of note, Carpenter catheter placed in the emergency room with no urine produced. Chest x-ray in the emergency room was unremarkable with EKG showing sinus rhythm at 68 bpm with Q waves inferiorly with no other ST/T-wave changes noted as reviewed by me. Laboratory evaluation remarkable for creatinine 3.59 (up from baseline of 1.2), troponin less than 0.012, WBC count 15.3. ED documentation reviewed and case discussed with ED provider. Review of systems: Pertinent positives and negatives as discussed in HPI, a complete review of systems was performed and all other systems are negative. Physical examination: Vital signs reviewed General: non toxic, no distress, appears at stated age, obese Derm: no unusual rashes/lesions, warm Head: atraumatic, normocephalic, symmetric Eyes: EOMI, no lid lag, anicteric sclera, pupils equal round reactive to light ENT: Nose and ears atraumatic Neck: No cervical lymphadenopathy, trachea midline, supple Mouth: no lip lesion, mucus membranes moist Cardiovascular: S1S2 reg, no murmur, positive dorsalis pedis pulse bilateral, no edema Lungs: CTA bilateral, no rhonchi, no rales, no accessory muscle use Abdominal: soft, right flank mild tenderness, no guarding Ext: muscle strength 5 out of 5 in all 4 extremities grossly, no gross muscle atrophy, no contractures, Neuro: CN II-XI grossly intact, no gross focal neuro deficits Psych: Alert, oriented, appropriate affect Assessment: Right sided nephrolithiasis with anuria Acute kidney injury, likely secondary to above Complicated UTI Atypical chest pain, now resolved Imaging: Chest x-ray in the emergency room was unremarkable with EKG showing sinus rhythm at 68 bpm with Q waves inferiorly with no other ST/T-wave changes noted as reviewed by me. Data Review: Laboratory evaluation remarkable for creatinine 3.59 (up from baseline of 1.2), troponin less than 0.012, WBC count 15.3. Plan: Urology consulted with plans for stent placement in a.m. Continue to trend troponin for now Cardiac monitoring Cardiology consulted Aspirin ordered Monitor CBC and BMP Pain control C/w IVFs with NS 130 ml/hr Continue with ceftriaxone 2 g every 24 hours DVT prophylaxis: Heparin subq The patient is admitted with an anticipated less than 2 midnight stay for evalu ation of anuria CODE STATUS: Full Code Discussed with: Patient Anticipated discharge place: Home Past Medical History Past Medical History: Cancer, GERD/Reflux, Skin Disorder, Sleep Apnea/CPAP/BIPAP Additional Past Medical History / Comment(s): psoriasis, has cpap, cancer lt kidney,kidney stones History of Any Multi-Drug Resistant Organisms: None Reported Past Surgical History: Hernia Repair, Orthopedic Surgery Additional Past Surgical History / Comment(s): colonoscopy, kidney removal (lft) scrotal repair, orthoscopic knee repair April 2023 Past Anesthesia/Blood Transfusion Reactions: Motion Sickness Additional Past Anesthesia/Blood Transfusion Reaction / Comment(s): . Past Psychological History: No Psychological Hx Reported Smoking Status: Former smoker Past Alcohol Use History: None Reported Past Drug Use History: None Reported - Past Family History Mother Family Medical History: No Reported History Medications and Allergies Home Medications Medication Instructions Recorded Confirmed Type Esomeprazole Magnesium [NexIUM] 40 mg PO DAILY 02/11/19 09/12/23 History HYDROcodone/APAP 5-325MG [[place] 1 tab PO Q6HR PRN 3 Days #12 tab 09/12/23 09/12/23 Rx 5-325] Ondansetron Odt [Zofran Odt] 4 mg PO Q8HR PRN #15 tab 09/12/23 09/12/23 Rx Phentermine HCl [Adipex-P] 37.5 mg PO DAILY 09/12/23 09/12/23 History Sulfamethox-Tmp 800-160Mg [B[place] 1 tab PO Q12HR 7 Days #14 tab 09/12/23 09/12/23 Rx DS 800-160 mg] Tamsulosin [Flomax] 0.4 mg PO DAILY 7 Days #7 cap 09/12/23 09/12/23 Rx Allergies Allergy/AdvReac Type Severity Reaction Status Date / Time naproxen [From Aleve] Allergy Dyspnea Verified 09/12/23 08:06 Physical Exam Vitals: Vital Signs Temp Pulse Resp BP Pulse Ox 09/13/23 02:14 80 18 145/77 97 09/13/23 00:00 68 18 142/77 96 09/12/23 22:00 60 23 145/78 95 09/12/23 21:00 68 16 147/74 99 09/12/23 20:00 66 15 159/81 96 09/12/23 19:02 64 22 09/12/23 18:49 98.4 F 66 16 166/87 98 Intake and Output 09/12/23 09/12/23 09/13/23 14:59 22:59 06:59 Output Total 10 Balance -10 Output: Urine 10 Uretheral (Carpenter) 10 Other: Voiding Method Toilet Urinal Weight 130.181 kg Results CBC & Chem 7: 09/12/23 19:47 09/12/23 19:47 Labs: Abnormal Lab Results - Last 24 Hours (Table) 09/12/23 09/12/23 Range/Units 19:47 19:47 WBC 15.3 H (3.8-10.6) k/uL Neutrophils # 12.7 H (1.3-7.7) k/uL Monocytes # 1.1 H (0-1.0) k/uL Carbon Dioxide 17 L (22-30) mmol/L BUN 45 H (9-20) mg/dL Creatinine 3.59 H (0.66-1.25) mg/dL Glucose 112 H (74-99) mg/dL
[2023-09-13] MEDS ORDERED: ASPIRIN 325 MG TAB PO STA (04:31)
[2023-09-13] MEDS ORDERED: ATORVASTATIN 80 MG TAB PO STA (04:31)
[2023-09-13 05:41] LABS: Basophils # (A) 0.1 k/uL (0-0.2); Basophils % (A) 0 %; Eosinophils # (A) 0.1 k/uL (0-0.7); Eosinophils % (A) 1 %; HCT 42.6 % (39.0-53.0); HGB 14.1 gm/dL (13.0-17.5); Lymphocytes # (A) 1.1 k/uL (1.0-4.8); Lymphocytes % (A) 8 %; MCH 30.1 pg (25.0-35.0); MCHC 33.2 g/dL (31.0-37.0); MCV 90.4 fL (80.0-100.0); Mean Platelet Volume 7.9; Monocytes # (A) 0.8 k/uL (0-1.0); Monocytes % (A) 6 %; Neutrophils # (A) 10.8 k/uL (1.3-7.7); Neutrophils % (A) 83 %; Platelet Count 240 k/uL (150-450); RBC 4.71 m/uL (4.30-5.90); RDW 13.9 % (11.5-15.5)
[2023-09-13 05:44] LABS: African American GFR (CKD) 15 (>60 ml/min/1.73 sqM); Anion Gap 12 mmol/L; Blood Urea Nitrogen 50 mg/dL (9-20); Calcium 8.5 mg/dL (8.4-10.2); Carbon Dioxide 18 mmol/L (22-30); Chloride 109 mmol/L (98-107); Glucose 110 mg/dL (74-99); Non-African American GFR(CKD) 13 (>60 ml/min/1.73 sqM); Potassium 4.4 mmol/L (3.5-5.1); Sodium 139 mmol/L (137-145)
[2023-09-13] MEDS: SODIUM CHLORIDE 0.9% 1,000 ML IV SCH ×3 (06:13→23:16)
[2023-09-13] MEDS: HEPARIN SODIUM,PORCINE 5,000 UNIT/ML 1 ML VIAL SQ SCH ×2 (07:37→16:47)
[2023-09-13] MEDS: TAMSULOSIN 0.4 MG CAP.ER.24H PO SCH (09:26)
--- NOTE | 2023-09-13 10:40 | P.CRDCN ---
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 Denies history of hypertension, hyperlipidemia. Has a history of prediabetes which is improved from weight loss. He is morbidly obese with a [id number] history of smoking which he quit 20 years ago. History of renal cancer with left nephrectomy in 2019. He lives a fairly sedentary lifestyle. He presented to the emergency department initially with complaints of flank pain with nausea and vomiting and diagnosed with renal stone as well as UTI and was sent home with Flomax and Bactrim. He presented again to the emergency department due to inability to void. He also complained of some chest discomfort that lasted a few hours and was brought on after vomiting. Asked to see the patient in consultation for the chest discomfort. Troponins have been negative 3. Repeat labs show worsening renal function with most recent creatinine of 4.79. Has history of cardiac workup in 2014 but nothing since that time. He has no family history of CAD. Vital signs stable with blood pressure on the high side however patient is having significant amount of pain. Upon examination he is resting in bed. Continues to complain of flank pain as well as some nausea. Chest pain has resolved. Patient complains of mild stable dyspnea on exertion due to physical deconditioning. Denies any lower extremity edema, orthopnea or PND. He has no complaints of palpitations, lightheadedness or dizziness. No syncope. Past Medical History Past Medical History: Cancer, GERD/Reflux, Skin Disorder, Sleep Apnea/CPAP/BIPAP Additional Past Medical History / Comment(s): psoriasis, has cpap, cancer lt kidney,kidney stones History of Any Multi-Drug Resistant Organisms: None Reported Past Surgical History: Hernia Repair, Orthopedic Surgery Additional Past Surgical History / Comment(s): colonoscopy, kidney removal (lft) scrotal repair, orthoscopic knee repair April 2023 Past Anesthesia/Blood Transfusion Reactions: Motion Sickness Additional Past Anesthesia/Blood Transfusion Reaction / Comment(s): . Past Psychological History: No Psychological Hx Reported Smoking Status: Former smoker Past Alcohol Use History: None Reported Additional Past Alcohol Use History / Comment(s): quit smoking approx 2000, smoked approx 20 yrs <1ppd Past Drug Use History: None Reported - Past Family History Mother Family Medical History: No Reported History Medications and Allergies Home Medications Medication Instructions Recorded Confirmed Type Esomeprazole Magnesium [NexIUM] 40 mg PO DAILY 02/11/19 09/12/23 History HYDROcodone/APAP 5-325MG [[place] 1 tab PO Q6HR PRN 3 Days #12 tab 09/12/23 09/12/23 Rx 5-325] Ondansetron Odt [Zofran Odt] 4 mg PO Q8HR PRN #15 tab 09/12/23 09/12/23 Rx Phentermine HCl [Adipex-P] 37.5 mg PO DAILY 09/12/23 09/12/23 History Sulfamethox-Tmp 800-160Mg [Bactrim 1 tab PO Q12HR 7 Days #14 tab 09/12/23 09/12/23 Rx DS 800-160 mg] Tamsulosin [Flomax] 0.4 mg PO DAILY 7 Days #7 cap 09/12/23 09/12/23 Rx Allergies Allergy/AdvReac Type Severity Reaction Status Date / Time naproxen [From Aleve] Allergy Dyspnea Verified 09/12/23 08:06 Physical Exam Vitals: Vital Signs Temp Pulse Pulse Resp BP BP Pulse Ox 09/13/23 07:44 98.0 F 69 16 156/68 98 09/13/23 05:38 98.0 F 18 97 09/13/23 05:04 98.5 F 75 16 143/75 09/13/23 02:14 80 18 145/77 97 09/13/23 00:00 68 18 142/77 96 09/12/23 22:00 60 23 145/78 95 09/12/23 21:00 68 16 147/74 99 09/12/23 20:00 66 15 159/81 96 09/12/23 19:02 64 22 09/12/23 18:49 98.4 F 66 16 166/87 98 Intake and Output 09/12/23 09/13/23 09/13/23 22:59 06:59 14:59 Output Total 10 Balance -10 Output: Urine 10 Uretheral (Carpenter) 10 Other: Voiding Method Toilet Urinal Weight 130.181 kg 130.181 kg PHYSICAL EXAMINATION: This is a 57-year-old male in no apparent distress at the time of my examination. VITAL SIGNS: Reviewed HEENT: Head is atraumatic, normocephalic. Pupils are equal, round. Sclerae anicteric. Conjunctivae are clear. Mucous membranes of the mouth are moist. Neck is supple. There is no elevated jugular venous pressure. No carotid bruit is heard. CHEST EXAMINATION: Clear to auscultation bilaterally. No wheezes rales or rhonchi. Respirations even and nonlabored. HEART EXAMINATION: Heart regular, positive S1 and S2. No S3. No S4. No clicks, rubs or murmurs. ABDOMEN: Soft, obese, nontender. Bowel sounds are heard. No organomegaly noted. EXTREMITIES: 2+ peripheral pulses with no evidence of peripheral edema and no calf tenderness noted. NEUROLOGIC EXAMINATION: Patient is awake, alert and oriented x3. Results 09/13/23 05:11 09/13/23 05:11 Cardiac Enzymes 09/12/23 09/12/23 09/13/23 Range/Units 19:47 19:47 00:35 AST 25 (17-59) U/L Troponin I <0.012 <0.012 (0.000-0.034) ng/mL 09/13/23 Range/Units 05:11 AST (17-59) U/L Troponin I <0.012 (0.000-0.034) ng/mL Coagulation 09/12/23 Range/Units 19:47 PT 10.1 (10.0-12.5) sec APTT 26.7 (22.0-30.0) sec CBC 09/12/23 09/13/23 Range/Units 19:47 05:11 WBC 15.3 H 13.0 H (3.8-10.6) k/uL RBC 5.18 4.71 (4.30-5.90) m/uL Hgb 15.1 14.1 (13.0-17.5) gm/dL Hct 46.2 42.6 (39.0-53.0) % Plt Count 298 240 (150-450) k/uL Comprehensive Metabolic Panel 09/12/23 09/13/23 Range/Units 19:47 05:11 Sodium 138 139 (137-145) mmol/L Potassium 4.7 4.4 (3.5-5.1) mmol/L Chloride 107 109 H (98-107) mmol/L Carbon Dioxide 17 L 18 L (22-30) mmol/L BUN 45 H 50 H (9-20) mg/dL Creatinine 3.59 H 4.79 H (0.66-1.25) mg/dL Glucose 112 H 110 H (74-99) mg/dL Calcium 9.2 8.5 (8.4-10.2) mg/dL AST 25 (17-59) U/L ALT 26 (4-49) U/L Alkaline Phosphatase 104 (38-126) U/L Total Protein 6.4 (6.3-8.2) g/dL Albumin 3.7 (3.5-5.0) g/dL Current Medications Generic Name Dose Route Start Last Admin Trade Name Freq PRN Reason Stop Dose Admin Acetaminophen 650 mg 09/12/23 22:25 Acetaminophen Tab 325 Mg Tab PO Q6HR PRN Mild Pain or Fever > 100.5 Atorvastatin Calcium 80 mg 09/13/23 21:00 Atorvastatin 80 Mg Tab PO HS [facility] Heparin Sodium (Porcine) 5,000 unit 09/13/23 08:00 09/13/23 07:37 Heparin Sodium,Porcine 5,000 Unit/Ml 1 Ml Vial SQ Not Given Q8HR [facility] Hydromorphone HCl 1 mg 09/12/23 22:25 Hydromorphone 1 Mg/Ml 1 Ml Syringe IVP Q3HR PRN Severe Pain (Scale 7 to 10) Sodium Chloride 1,000 mls @ 130 mls/hr 09/12/23 22:30 09/13/23 06:13 Saline 0.9% IV Not Given .Q7H42M [facility] Ceftriaxone Sodium 2 gm/ 50 mls @ 100 mls/hr 09/13/23 21:00 Sodium Chloride IVPB DAILY@2100 [facility] Protocol Naloxone HCl 0.2 mg 09/12/23 23:52 Naloxone 0.4 Mg/Ml 1 Ml Vial IV Q2M PRN Opioid Reversal Ondansetron HCl 4 mg 09/12/23 22:25 09/13/23 04:08 Ondansetron 4 Mg/2 Ml Vial IVP 4 mg Q8HR PRN Administration Nausea And Vomiting Tamsulosin HCl 0.4 mg 09/13/23 09:00 09/13/23 09:26 Tamsulosin 0.4 Mg Cap.Er.24h PO 0.4 mg DAILY [facility] Administration Intake and Output 09/12/23 09/13/23 09/13/23 22:59 06:59 14:59 Output Total 10 Balance -10 Output: Urine 10 Uretheral (Carpenter) 10 Other: Voiding Method Toilet Urinal Weight 130.181 kg 130.181 kg 09/13/23 05:11 09/13/23 05:11 EKG Interpretations (text) Sinus rhythm with evidence of possible prior inferior wall SD Assessment and Plan Assessment: #1 symptoms of chest pain, acute coronary event has been ruled out troponins negative 3 #2 right ureteral stones with obstruction with acute kidney injury #3 solitary kidney, status post left nephrectomy in 2019 #4 obesity #5 prediabetes #6 elevated blood pressure in the setting of acute pain Plan: From cardiology's perspective will obtain a 2-D echo with Doppler study to assess cardiac structure and function. From our standpoint there are no Absolute contraindications for patient to undergo cystoscopy with ureteral stenting. We will continue to follow the patient and provide further recommendations accordingly. DENTAL LABORATORY TECHNICIAN APPRENTICE note has been reviewed, I agree with a documented findings and plan of care. Patient was seen and examined.
[2023-09-13] MEDS ORDERED: ONDANSETRON 4 MG/2 ML VIAL IVP ONE (10:50)
[2023-09-13] MEDS ORDERED: SODIUM CHLORIDE 0.9% 100 ML IV ONE (10:55)
[2023-09-13] MEDS ORDERED: PROPOFOL 10 MG/ML 20 ML VIAL IV ONE (11:23)
[2023-09-13] MEDS ORDERED: LIDOCAINE 1% INJ 10MG/ML (20 ML MDV) ONE (11:23)
[2023-09-13] MEDS ORDERED: ceFAZolin 1,000 MG VIAL ONE (11:23)
[2023-09-13] MEDS ORDERED: MIDAZOLAM 2 MG/2 ML VIAL ONE (11:23)
[2023-09-13] MEDS ORDERED: SODIUM CHLORIDE 0.9% 100 ML BAG ONE (11:23)
[2023-09-13] MEDS ORDERED: fentaNYL (PF) 50 MCG/ML 2 ML AMP ONE (11:23)
[2023-09-13] MEDS ORDERED: SUCCINYLCHOLINE CHLORIDE 200 MG/10 ML VIAL IV ONE (11:23)
--- NOTE | 2023-09-13 11:40 | P.PN ---
Subjective Progress Note Date: 09/13/23 no acute overnight events, still has not made any urine, denies any flank pain gross hematuria or dysuria Objective - Vital Signs Vital signs: Vital Signs Temp 98.0 F 09/13/23 07:44 Pulse 62 09/13/23 10:57 Resp 16 09/13/23 10:57 BP 154/72 09/13/23 10:57 Pulse Ox 98 09/13/23 10:57 FiO2 Intake & Output 09/12/23 09/13/23 09/13/23 18:59 06:59 18:59 Output Total 10 Balance -10 Weight 130.181 kg 130.181 kg Output: Urine 10 Uretheral (Carpenter) 10 Other: Voiding Method Toilet Toilet Urinal Urinal - Constitutional General appearance: Present: no acute distress - Gastrointestinal General gastrointestinal: Present: soft. Absent: distended, tenderness - Psychiatric Psychiatric: Present: A&O x's 3 - Labs CBC & Chem 7: 09/13/23 05:11 09/13/23 05:11 Labs: Abnormal Lab Results - Last 24 Hours (Table) 09/12/23 09/12/23 09/13/23 Range/Units 19:47 19:47 05:11 WBC 15.3 H 13.0 H (3.8-10.6) k/uL Neutrophils # 12.7 H 10.8 H (1.3-7.7) k/uL Monocytes # 1.1 H (0-1.0) k/uL Chloride (98-107) mmol/L Carbon Dioxide 17 L (22-30) mmol/L BUN 45 H (9-20) mg/dL Creatinine 3.59 H (0.66-1.25) mg/dL Glucose 112 H (74-99) mg/dL 09/13/23 Range/Units 05:11 WBC (3.8-10.6) k/uL Neutrophils # (1.3-7.7) k/uL Monocytes # (0-1.0) k/uL Chloride 109 H (98-107) mmol/L Carbon Dioxide 18 L (22-30) mmol/L BUN 50 H (9-20) mg/dL Creatinine 4.79 H (0.66-1.25) mg/dL Glucose 110 H (74-99) mg/dL Assessment and Plan Assessment: 57 old male with history of a solitary right kidney, presented to the hospital with right-sided ureteral stone with hydronephrosis. Patient is in renal failure due to his ureteral obstruction. Discussed with him and his Would be to proceed with a stent insertion. Risk-benefit and rationale of surgery was discussed in detail -Or for cystoscopy and right stent insertion -We will place a Carpenter catheter in the OR to monitor urine output
[2023-09-13] MEDS ORDERED: SODIUM CHLORIDE 0.9% 50 ML with ceFAZolin 3,000 MG IV ONE ×2 (11:59)
--- NOTE | 2023-09-13 12:31 | FL ---
EXAMINATION TYPE: FL guidance operating room DATE OF EXAM: 09/13/2023 Comparison: None Clinical History: 57-year-old male STENT PLACEMENT Findings: stent placement, 4sec fl tie, DAP=2.4217 mGycm2, one image Impression: Fluoroscopy for urology procedure as above.
--- NOTE | 2023-09-13 13:02 | P.OP ---
Date of Procedure: 09/13/23 Preoperative Diagnosis: right ureteral stone Postoperative Diagnosis: same Procedure(s) Performed: cystoscopy, right stent insertion Implants: 6-Tongan by 26 cm stent placed in the right ureter Anesthesia: BAKARI Surgeon: Erich Mcclendon Estimated Blood Loss (ml): 1 Pathology: none sent Condition: stable Disposition: PACU Indications for Procedure: 57 old male with history of a solitary right kidney, presented to the hospital with right-sided ureteral stone with hydronephrosis. Patient is in renal failure due to his ureteral obstruction. Discussed with him and his Would be to proceed with a stent insertion. Risk-benefit and rationale of surgery was discussed in detail Description of Procedure: patient brought to the operating room, general anesthesia was induced. He was prepped and draped in sterile fashion and placed in dorsal lithotomy position. Cystoscopy fitted with a 22-Tongan sheath was inserted per urethra, cystoscopy was performed which showed no abnormality within the bladder. Attention was then carried to the right ureteral orifice which was intubated with a sensor wire. Next a ureteral stent was passed over the wire, the proximal curl was visualized on fluoroscopy and the distal curl was visualized using the cystoscope. There was a hydronephrotic drip noticed. This time the cystoscope was withdrawn and a 18-Tongan Carpenter was placed with the return of clear urine. Patient tolerated the procedure well was taken to recovery in stable condition
--- NOTE | 2023-09-13 13:35 | CA ---
Transthoracic Echo Report Name: Shad Walker Age: 57 Gender: M : 1965 Exam Date: 09/13/2023 09:36 Exam Location: [facility] Ht (in): 69 Wt (lb): 287 Ordering Physician: Lory Hernandez Attending/Referring Phys: [id number], Mary Director Of Flight Operations Ariadna Castellon [facility] Procedure CPT: Indications: Chest Pain Cardiac Hx: Technical Quality: Fair Contrast 1: Definity Total Dose (mL): 6 Contrast 2: Total Dose (mL): MEASUREMENTS (Male / Female) Normal Values 2D ECHO LV Diastolic Diameter PLAX 4.4 cm 4.2 - 5.9 / 3.9 - 5.3 cm LV Systolic Diameter PLAX 3.6 cm IVS Diastolic Thickness 1.2 cm 0.6 - 1.0 / 0.6 - 0.9 cm LVPW Diastolic Thickness 1.2 cm 0.6 - 1.0 / 0.6 - 0.9 cm LV Relative Wall Thickness 0.5 LVOT Diameter 2.1 cm Ascending Aorta Diameter 3.4 cm M-MODE Aortic Root Diameter MM 3.4 cm LA Systolic Diameter MM 4.3 cm LA Ao Ratio MM 1.3 AV Cusp Separation MM 2.6 cm DOPPLER AV Peak Velocity 118.6 cm/s AV Peak Gradient 5.6 mmHg AV Mean Velocity 83.6 cm/s AV Mean Gradient 3.1 mmHg AV Velocity Time Integral 26.2 cm LVOT Peak Velocity 88.3 cm/s LVOT Peak Gradient 3.1 mmHg LVOT Velocity Time Integral 22.0 cm LVOT Stroke Volume 77.3 cm??? LVOT Stroke Volume Index 32.1 ml/m??? LVOT Cardiac Index 1858.3 cm???/min???m??? AV Area Cont Eq vti 2.9 cm??? AV Area Cont Eq pk 2.6 cm??? Mitral E Point Velocity 119.8 cm/s Mitral A Point Velocity 74.1 cm/s Mitral E to A Ratio 1.6 MV Deceleration Time 189.9 ms LV E' Lateral Velocity 13.2 cm/s Mitral E to LV E' Lateral Ratio 9.1 LV E' Septal Velocity 8.9 cm/s Mitral E to LV E' Septal Ratio 13.4 Right Atrial Pressure 8.0 mmHg FINDINGS Left Ventricle Mildly increased left ventricular wall thickness. Left ventricular cavity size normal. Normal left ventricular systolic function with no obvious regional wall motion abnormalities. Left ventricular ejection fraction is estimated at 55- 60%. Right Ventricle mild right ventricular dilatation. Unable to estimate the right ventricular systolic pressure. Right Atrium Mild right atrial dilatation. Left Atrium Normal left atrial size. Mitral Valve Structurally normal mitral valve. trace mitral regurgitation. Aortic Valve Trileaflet aortic valve. No aortic valve stenosis or regurgitation. Tricuspid Valve Structurally normal tricuspid valve. Trace tricuspid regurgitation. Pulmonic Valve Pulmonic valve not well visualized. Trace pulmonic regurgitation. Pericardium Minimal pericardial effusion (normal variant). Aorta Normal size aortic root and proximal ascending aorta. CONCLUSIONS 1. Normal left ventricle size and systolic function 2. Limited Doppler study with trace mitral and tricuspid regurgitation Definity ECHO contrast used for improved visualization of the endocardial borders (inadequate visualization of two or more contiguous segments). Previewed by: Dr. Chirag Gonzales MD (Electronically Signed) Final Date: 13 September 2023 13:34
[2023-09-13] MEDS: ACETAMINOPHEN TAB 325 MG TAB PO PRN ×2 (16:51→23:14)
[2023-09-13] MEDS: ATORVASTATIN 80 MG TAB PO SCH (20:21)
[2023-09-14] MEDS: SODIUM CHLORIDE 0.9% 1,000 ML IV SCH ×3 (00:30→20:55)
[2023-09-14] MEDS: HEPARIN SODIUM,PORCINE 5,000 UNIT/ML 1 ML VIAL SQ SCH ×4 (00:31→23:58)
--- NOTE | 2023-09-14 07:51 | P.PN ---
Subjective Progress Note Date: 09/14/23 Underwent right stent insertion yesterday, denies any flank pain or gross hematuria. Has been more than 7 L of urine post surgery Objective - Vital Signs Vital signs: Vital Signs Temp 97.9 F 09/14/23 02:00 Pulse 63 09/14/23 02:00 Resp 16 09/14/23 02:00 BP 145/70 09/14/23 02:00 Pulse Ox 96 09/14/23 02:00 FiO2 Intake & Output 09/13/23 09/14/23 09/14/23 18:59 06:59 18:59 Intake Total 2090 Output Total 3100 4200 Balance -1010 -4200 Intake: IV 1050 Intake, IV Titration 1040 Amount Sodium Chloride 0.9% 1, 1040 000 ml @ 130 mls/hr IV . Q7H42M [facility] Rx#:[id number] Output: Urine 3100 4200 Estimated Blood Loss 0 Other: Voiding Method Toilet Indwelling Catheter Urinal - Constitutional General appearance: Present: no acute distress - Gastrointestinal General gastrointestinal: Present: soft. Absent: distended, tenderness - Psychiatric Psychiatric: Present: A&O x's 3 - Labs CBC & Chem 7: 09/13/23 05:11 09/13/23 05:11 Labs: Microbiology - Last 24 Hours (Table) 09/12/23 22:44 Blood Culture - Preliminary Blood 09/12/23 22:35 Blood Culture - Preliminary Blood Assessment and Plan Assessment: 57 old male with history of a solitary right kidney, presented to the hospital with right-sided ureteral stone with hydronephrosis. Patient is in renal failure due to his ureteral obstruction. Underwent right-sided stent insertion yesterday. His having postobstructive diuresis post stent insertion. Has been more than 7 L of urine -Repeat BMP this morning -If there is improvement in his kidney function catheter can be removed from urology standpoint, he is stable from urology standpoint for discharge if kidney function improves -Will be set up for an outpatient right-sided ureteroscopy with holmium laser
[2023-09-14 08:15] VITALS: RESP 18
[2023-09-14] MEDS: TAMSULOSIN 0.4 MG CAP.ER.24H PO SCH (08:17)
[2023-09-14 10:32] LABS: African American GFR (CKD) 37 (>60 ml/min/1.73 sqM); Anion Gap 13 mmol/L; Blood Urea Nitrogen 30 mg/dL (9-20); Calcium 9.2 mg/dL (8.4-10.2); Carbon Dioxide 21 mmol/L (22-30); Chloride 111 mmol/L (98-107); Glucose 132 mg/dL (74-99); Non-African American GFR(CKD) 32 (>60 ml/min/1.73 sqM); Phosphorus 4.1 mg/dL (2.5-4.5); Potassium 3.9 mmol/L (3.5-5.1); Sodium 145 mmol/L (137-145)
--- NOTE | 2023-09-14 10:41 | P.PN ---
Subjective Progress Note Date: 09/14/23 Pt has had >7L UOP since relief of his obstruction with NUS. Has vasquez in place. Otherwise feeling well with no complaints today. Gen: awake, alert HEENT: normocephalic, atraumatic, good hearing acuity, moist mucous membranes Resp: good air exchange, breathing comfortably with no accessory muscle use CVS: good distal perfusion x 4, GI: soft, NTTP, ND : no SPT, no CVAT, vasquez catheter is present MSK: no pitting edema, no clubbing Neuro: non-focal, moving all extremities Psych: cooperative, euthymic mood Hospital Course: Patient is a 57-year-old male with a PMH of kidney cancer status post ne phrectomy 4 years ago who presented to the emergency room for chest discomfort and decreased urination. Patient was seen in the emergency room earlier in the day with complaints of right flank pain radiating down into the groin with nausea and vomiting ongoing since 4 PM the day prior. On imaging, he was noted to have multiple small right-sided renal calculi with moderate hydroureteronephrosis. The patient was also noted to have a UTI and was discharged home on a course of oral antibiotics. He now returns to the emergency room reporting that he has not urinated since 3 AM on 09/12. He notes ongoing right flank pain without radiation now, rated a 3 out of 10. He also reports left-sided chest discomfort earlier today around 2 PM which lasted less than an hour, pressure-like in sensation, nonradiating, nonpleuritic, without associated shortness of breath, dizziness, or diaphoresis. Denies any prior history of CAD or MIs. Reports excellent as it has tolerance at baseline. Denies fever, chills, cough. Of note, Vasquez catheter placed in the emergency room with no urine produced. Chest x-ray in the emergency room was unremarkable with EKG showing sinus rhythm at 68 bpm with Q waves inferiorly with no other ST/T-wave changes noted as reviewed by me. Laboratory evaluation remarkable for creatinine 3.59 (up from baseline of 1.2), troponin less than 0.012, WBC count 15.3. Assessment: Right sided nephrolithiasis with anuria Acute kidney injury, likely secondary to above Post-obstructive diuresis Complicated UTI Atypical chest pain, now resolved Imaging: Chest x-ray in the emergency room was unremarkable with EKG showing sinus rhythm at 68 bpm with Q waves inferiorly with no other ST/T-wave changes noted as reviewed by me. Data Review: Laboratory evaluation remarkable for creatinine 3.59 (up from baseline of 1.2), troponin less than 0.012, WBC count 15.3. Plan: Urology consulted with plans for stent placement in a.m. Cardiac monitoring Cardiology consulted Aspirin ordered Monitor CBC and BMP Pain control C/w IVFs with NS 130 ml/hr, ensure patients IVF keep up with patients significant UOP Continue with ceftriaxone 2 g every 24 hours, f/u UCx DVT prophylaxis: Heparin subq CODE STATUS: Full Code Discussed with: Patient Anticipated discharge place: Home Objective - Vital Signs Vital signs: Vital Signs Temp 98.4 F 09/14/23 07:34 Pulse 64 09/14/23 07:34 Resp 18 09/14/23 07:34 BP 143/79 09/14/23 07:34 Pulse Ox 98 09/14/23 07:34 FiO2 Intake & Output 09/13/23 09/14/23 09/14/23 18:59 06:59 18:59 Intake Total 2090 Output Total 3100 4200 1750 Balance -1010 -4200 -1750 Intake: IV 1050 Intake, IV Titration 1040 Amount Sodium Chloride 0.9% 1, 1040 000 ml @ 130 mls/hr IV . Q7H42M [facility] Rx#:[id number] Output: Urine 3100 4200 1750 Estimated Blood Loss 0 Other: Voiding Method Toilet Indwelling Catheter Indwelling Catheter Urinal - Labs CBC & Chem 7: 09/13/23 05:11 09/14/23 09:33 Labs: Abnormal Lab Results - Last 24 Hours (Table) 09/14/23 Range/Units 09:33 Chloride 111 H (98-107) mmol/L Carbon Dioxide 21 L (22-30) mmol/L BUN 30 H (9-20) mg/dL Creatinine 2.22 H (0.66-1.25) mg/dL Glucose 132 H (74-99) mg/dL Microbiology - Last 24 Hours (Table) 09/12/23 22:44 Blood Culture - Preliminary Blood 09/12/23 22:35 Blood Culture - Preliminary Blood
[2023-09-14] MEDS: ACETAMINOPHEN TAB 325 MG TAB PO PRN ×3 (11:22→23:58)
--- NOTE | 2023-09-14 14:20 | P.PN ---
Subjective Progress Note Date: 09/14/23 This is a pleasant 57-year-old gentleman who does not follow with stone hand. Denies history of hypertension, hyperlipidemia. Has a history of prediabetes which is improved from weight loss. He is morbidly obese with a [id number] history of smoking which he quit 20 years ago. History of renal cancer with left nephrectomy in 2019. He lives a fairly sedentary lifestyle. He presented to the emergency department initially with complaints of flank pain with nausea and vomiting and diagnosed with renal stone as well as UTI and was sent home with Flomax and Bactrim. He presented again to the emergency department due to inability to void. He also complained of some chest discomfort that lasted a few hours and was brought on after vomiting. Asked to see the patient in consultation for the chest discomfort. Troponins have been negative 3. Repeat labs show worsening renal function with most recent creatinine of 4.79. Has history of cardiac workup in 2014 but nothing since that time. He has no family history of CAD. Vital signs stable with blood pressure on the high side however patient is having significant amount of pain. Upon examination he is resting in bed. Continues to complain of flank pain as well as some nausea. Chest pain has resolved. Patient complains of mild stable dyspnea on exertion due to physical deconditioning. Denies any lower extremity edema, orthopnea or PND. He has no complaints of palpitations, lightheadedness or dizziness. No syncope. 09/14/2023 She was seen and examined resting comfortably in bed. He is overall feeling significantly better compared to yesterday. He underwent right ureteral stenting done yesterday. Continues to have a Carpenter catheter. Labs are pending this morning. He is hoping for discharge home today. Echocardiogram with Doppler study showed a normal LV systolic function with no evidence of segmental wall motion abnormality. Objective - Vital Signs Vital signs: Vital Signs Temp 98.2 F 09/14/23 12:11 Pulse 72 09/14/23 12:11 Resp 18 09/14/23 12:11 BP 136/81 09/14/23 12:11 Pulse Ox 97 09/14/23 12:11 FiO2 Intake & Output 09/13/23 09/14/23 09/14/23 18:59 06:59 18:59 Intake Total 2090 Output Total 3100 4200 2950 Balance -1010 -4200 -2950 Intake: IV 1050 Intake, IV Titration 1040 Amount Sodium Chloride 0.9% 1, 1040 000 ml @ 130 mls/hr IV . Q7H42M [facility] Rx#:[id number] Output: Urine 3100 4200 2950 Estimated Blood Loss 0 Other: Voiding Method Toilet Indwelling Catheter Indwelling Catheter Urinal - Exam HEENT: Head is atraumatic, normocephalic. Pupils are equal, round. Sclerae anicteric. Conjunctivae are clear. Mucous membranes of the mouth are moist. Neck is supple. There is no elevated jugular venous pressure. No carotid bruit is heard. CHEST EXAMINATION: Clear to auscultation bilaterally. No wheezes rales or rhonchi. Respirations even and nonlabored. HEART EXAMINATION: Heart regular, positive S1 and S2. No S3. No S4. No clicks, rubs or murmurs. ABDOMEN: Soft, obese, nontender. Bowel sounds are heard. No organomegaly noted. EXTREMITIES: 2+ peripheral pulses with no evidence of peripheral edema and no calf tenderness noted. NEUROLOGIC EXAMINATION: Patient is awake, alert and oriented x3. - Labs CBC & Chem 7: 09/13/23 05:11 09/14/23 09:33 Labs: Abnormal Lab Results - Last 24 Hours (Table) 09/14/23 Range/Units 09:33 Chloride 111 H (98-107) mmol/L Carbon Dioxide 21 L (22-30) mmol/L BUN 30 H (9-20) mg/dL Creatinine 2.22 H (0.66-1.25) mg/dL Glucose 132 H (74-99) mg/dL Microbiology - Last 24 Hours (Table) 09/12/23 22:44 Blood Culture - Preliminary Blood 09/12/23 22:35 Blood Culture - Preliminary Blood Assessment and Plan Assessment: #1 symptoms of chest pain, acute coronary event has been ruled out troponins negative 3, evidence of possible prior inferior wall TN on EKG #2 right ureteral stones with obstruction with acute kidney injury #3 solitary kidney, status post left nephrectomy in 2019 #4 obesity #5 prediabetes #6 elevated blood pressure in the setting of acute pain Plan: From cardiology's perspective she was stable for discharge home when cleared by urology and primary. We will follow-up with the patient in the office and schedule him for stress test as an outpatient. [employer] note has been reviewed, I agree with a documented findings and plan of care. Patient was seen and examined.
[2023-09-14] MEDS: ATORVASTATIN 80 MG TAB PO SCH (20:53)
[2023-09-15] MEDS: SODIUM CHLORIDE 0.9% 1,000 ML IV SCH (05:22)
[2023-09-15 07:43] VITALS: BP 159/85; PULSE 68; TEMP 98.5
[2023-09-15] MEDS: TAMSULOSIN 0.4 MG CAP.ER.24H PO SCH (09:11)
[2023-09-15] MEDS: HEPARIN SODIUM,PORCINE 5,000 UNIT/ML 1 ML VIAL SQ SCH (09:11)
[2023-09-15 11:03] LABS: Basophils # (A) 0.02 X 10*3/uL (0.00-0.10); Basophils % (A) 0.3 %; Eosinophils % (A) 4.4 %; HCT 46.3 % (39.6-50.0); HGB 14.9 g/dL (13.0-17.0); Lymphocytes # (A) 1.37 X 10*3/uL (0.90-5.00); Lymphocytes % (A) 20.3 %; MCH 29.2 pg (27.0-32.0); MCHC 32.2 g/dL (32.0-37.0); MCV 90.8 FL (80.0-97.0); Mean Platelet Volume 10.2 FL (9.5-12.2); Monocytes # (A) 0.63 X 10*3/uL (0.20-1.00); Monocytes % (A) 9.3 %; NRBC Per 100 WBC 0 X 10*3/uL (0.00-0.01); Neutrophils % (A) 65.3 %; Platelet Count 300 X 10*3/uL (140-440); RDW 13.5 % (11.5-14.5); WBC 6.75 X 10*3/uL (4.50-10.00)
[2023-09-15 11:05] LABS: BUN/Creat Ratio 11.88 Ratio (12.00-20.00); Calcium 9.6 mg/dL (8.7-10.3); Carbon Dioxide 25.1 mmol/L (21.6-31.8); Chloride 110 mmol/L (96-109); Glucose 110 mg/dL (70-110); Potassium 4.4 mmol/L (3.5-5.5); Sodium 144 mmol/L (135-145)
--- NOTE | 2023-09-15 13:10 | P.PN ---
Subjective Underwent right stent insertion 09/13, denies any flank pain or gross hematuria. still having high urine output consistent with postobstructive diuresis Objective - Vital Signs Vital signs: Vital Signs Temp 98.5 F 09/15/23 07:31 Pulse 68 09/15/23 08:00 Resp 18 09/15/23 08:00 BP 159/85 09/15/23 07:31 Pulse Ox 98 09/15/23 07:31 FiO2 Intake & Output 09/14/23 09/15/23 09/15/23 18:59 06:59 18:59 Output Total 4600 2875 1325 Balance -4600 -2875 -1325 Output: Urine 4600 2875 1325 Other: Voiding Method Indwelling Catheter Indwelling Catheter Indwelling Catheter # Bowel Movements 1 - Labs CBC & Chem 7: 09/15/23 06:37 09/15/23 06:37 Labs: Abnormal Lab Results - Last 24 Hours (Table) 09/15/23 Range/Units 06:37 Chloride 110 H (96-109) mmol/L Creatinine 1.6 H (0.6-1.5) mg/dL Est GFR (CKD-EPI) 50 L (>=60) BUN/Creatinine Ratio 11.88 L (12.00-20.00) Ratio Microbiology - Last 24 Hours (Table) 09/12/23 22:44 Blood Culture - Preliminary Blood 09/12/23 22:35 Blood Culture - Preliminary Blood Assessment and Plan Assessment: 57 old male with history of a solitary right kidney, presented to the hospital with right-sided ureteral stone with hydronephrosis. Patient is in renal failure due to his ureteral obstruction. Underwent right-sided stent insertion yesterday. His having postobstructive diuresis post stent insertion. -From urology standpoint, he is stable for discharge if urine output slows down. catheter can be removed prior to discharge -Will be set up for an outpatient right-sided ureteroscopy with holmium laser
--- NOTE | 2023-09-15 13:41 | P.DS ---
Providers Date of admission: 09/12/23 22:25 Expected date of discharge: 09/15/23 Attending physician: Kirby Lowe MD Consults: 09/12/23 22:25 Consult Physician Urgent Consulting Provider: Deepak Madera Consult Reason/Comments: Acute ureterolithiasis with hydronephrosis, joel, s/p right nephrectomy Do you want consulting provider notified?: Already Contacted 09/13/23 04:30 Consult Physician Urgent Consulting Provider: Sunny Yang Consult Reason/Comments: chest pain Do you want consulting provider notified?: Yes Primary care physician: [facility] Course: Patient is a 57-year-old male with a PMH of kidney cancer status post nephrectomy 4 years ago who presented to the emergency room for chest discomfort and decreased urination. Patient was seen in the emergency room earlier in the day with complaints of right flank pain radiating down into the groin with nausea and vomiting ongoing since 4 PM the day prior. On imaging, he was noted to have multiple small right-sided renal calculi with moderate hydroureteronephrosis. The patient was also noted to have a UTI and was discharged home on a course of oral antibiotics. He now returns to the emergency room reporting that he has not urinated since 3 AM on 09/12. He notes ongoing right flank pain without radiation now, rated a 3 out of 10. He also reports left-sided chest discomfort earlier today around 2 PM which lasted less than an hour, pressure-like in sensation, nonradiating, nonpleuritic, without associated shortness of breath, dizziness, or diaphoresis. Denies any prior history of CAD or MIs. Reports excellent as it has tolerance at baseline. Denies fever, chills, cough. Of note, Carpenter catheter placed in the emergency room with no uri ne produced. Chest x-ray in the emergency room was unremarkable with EKG showing sinus rhythm at 68 bpm with Q waves inferiorly with no other ST/T-wave changes. Laboratory evaluation remarkable for creatinine 3.59 (up from baseline of 1.2), troponin less than 0.012, WBC count 15.3. Cardiology consulted, Echo showed normal LV systolic function, trace MR/TR. Cardiology recommended no further workup. He underwent cystoscopy, right ureteral stent insertion with Urology. Empirically started on Rocephin, UCx negative, no antibiotics on discharge. Had significant urine output after ureteral stent, presenting symptoms resolved. 09/15 Patient was seen and examined. No complaints. Plans to discontinue Carpenter. Plans to discharge home today if able to void. CBC unremarkable. BMP Cl 111, Cr 1.6. Follow up with PCP within 1-2 days of discharge. Follow up with Dr. Madera within 1 week of discharge. Flomax prescribed on discharge. General: non toxic, no distress, appears at stated age Derm: warm, dry Head: atraumatic, normocephalic, symmetric Eyes: EOMI, no lid lag, anicteric sclera Cardiovascular: S1S2 reg, no murmur Lungs: Clear to auscultation bilaterally , no accessory muscle use Ext: no gross muscle atrophy, no edema, no contractures Neuro: no focal neuro deficits Psych: Alert, oriented, appropriate affect Discharge Diagnosis: Right sided nephrolithiasis with anuria Acute kidney injury, likely secondary to above Post-obstructive diuresis Atypical chest pain, now resolved This complex discharge took 35 minutes to complete. Patient Condition at Discharge: Stable Plan - Discharge Summary Discharge Rx Participant: No New Discharge Prescriptions: Continue Esomeprazole Magnesium [NexIUM] 40 mg PO DAILY HYDROcodone/APAP 5-325MG [[place] 5-325] 1 tab PO Q6HR PRN 3 Days #12 tab PRN Reason: Pain Tamsulosin [Flomax] 0.4 mg PO DAILY 14 Days #14 cap Phentermine HCl [Adipex-P] 37.5 mg PO DAILY Ondansetron Odt [Zofran ODT] 4 mg PO Q8HR PRN #15 tab PRN Reason: Nausea And Vomiting Sulfamethox-Tmp 800-160Mg [Bactrim DS 800-160 mg] 1 tab PO Q12HR 7 Days #14 t ab Discharge Medication List Esomeprazole Magnesium [NexIUM] 40 mg PO DAILY 02/11/19 [History] HYDROcodone/APAP 5-325MG [[place] 5-325] 1 tab PO Q6HR PRN 3 Days #12 tab 09/12/23 [Rx] Ondansetron Odt [Zofran ODT] 4 mg PO Q8HR PRN #15 tab 09/12/23 [Rx] Phentermine HCl [Adipex-P] 37.5 mg PO DAILY 09/12/23 [History] Sulfamethox-Tmp 800-160Mg [Bactrim DS 800-160 mg] 1 tab PO Q12HR 7 Days #14 tab 09/12/23 [Rx] Tamsulosin [Flomax] 0.4 mg PO DAILY 14 Days #14 cap 09/15/23 [Rx] Follow up Appointment(s)/Referral(s): Gee Logan DO [Primary Care Provider] - 1-2 days (The office is closed for lunch please call and make follow up appointment.) Deepak Madera MD [STAFF PHYSICIAN] - 1 Week (The office is on lunch please call and make follow up appointment.) Activity/Diet/Wound Care/Special Instructions: Increase your fluid intake Discharge Disposition: HOME SELF-CARE
== END 2023-09-15 15:04 | disposition home or self-care (01) ==
LOC: EC 18:47 → 6NMEDSUR 22:25 → 5NMEDONC 09-13 02:32
PROVIDERS: ADMIT Internal Medicine; ATTEND Internal Medicine
DX: R07.89 Other chest pain (principal); N20.1 Calculus of ureter; N17.9 Acute kidney failure, unspecified; R34 Anuria and oliguria; Q60.0 Renal agenesis, unilateral; N39.0 Urinary tract infection, site not specified; R03.0 Elevated blood-pressure reading, without diagnosis of hypertension; K21.9 Gastro-esophageal reflux disease without esophagitis; G47.30 Sleep apnea, unspecified; R73.03 Prediabetes; E66.01 Morbid (severe) obesity due to excess calories; Z68.41 Body mass index [BMI] 40.0-44.9, adult; Z85.528 Personal history of other malignant neoplasm of kidney; Z87.891 Personal history of nicotine dependence; Z90.5 Acquired absence of kidney; Z79.899 Other long term (current) drug therapy; Z88.6 Allergy status to analgesic agent
CPT/HCPCS: 96361 ×2; 96365; 96366 ×2; 96372 ×3; 96376 ×2; 96375; 99285; 36415; 93005 ×2; 93306; 80053; 80048 ×3; 83735 ×2; 84100; 84484 ×2; 85025 ×3; 85610; 85730; 87040; 71046; 52332; G0378 ×5; C2625; C1769; J2250; J0330; J1644 ×3; J2405 ×2; J0690; J0696 ×3; J2001; J3010; Q9957; J1170; J2704

== ENCOUNTER → 2024-06-14 | Outpatient (CLI) | payer BC ==
--- NOTE | 2024-06-14 09:22 | XR ---
EXAMINATION TYPE: XR knee complete LT DATE OF EXAM: 06/14/2024 COMPARISON: 09/23/2018 HISTORY: 58-year-old male follow up TKR 6 weeks ago, [id number] POST TKR TECHNIQUE: 3 views FINDINGS: Images show cemented left total knee aortoplasty. Both distal femoral and proximal tibial components of the prosthesis appear well seated without periprosthetic fracture. Alignment grossly anatomic. The re is anterior soft tissue swelling and small knee joint effusion. IMPRESSION: Anterior soft tissue swelling and small knee joint effusion. Clinically correlate. Otherwise, uncompl icated appearance to the left total knee arthroplasty.
== END | disposition home or self-care (01) ==
LOC: RADXRYALE 08:41
PROVIDERS: ATTEND Family Medicine
DX: M25.462 Effusion, left knee (principal); Z47.1 Aftercare following joint replacement surgery; Z96.651 Presence of right artificial knee joint; Z96.652 Presence of left artificial knee joint

== ENCOUNTER 2024-07-04 15:35 | Observation (INO) | payer BC ==
--- NOTE | 2024-07-04 16:09 | ED ---
Abdominal Pain HPI - General Source: patient, RN notes reviewed Mode of arrival: wheelchair Limitations: no limitations <Tonya Dalton - Last Filed: 07/04/24 16:08> <Toña Marrero - Last Filed: 07/04/24 20:27> - General Chief Complaint: Abdominal Pain Stated Complaint: Kidney issues Time Seen by Provider: 07/04/24 16:08 - History of Present Illness Initial Comments: Quick note: Patient is a 58-year-old male presented to the ER with a chief complaint of right flank pain. Patient has a history of kidney stones and has 1 kidney on the right. States for the past couple of days he has noticed a right flank pain. He states yesterday pain seemed to improve and he thought he passed the stone. Today pain returned worse than it was prior. He reports dry heaves and hot and cold flashes. Patient does follow-up with Dr. Madera. Patient contacted his office and received Flomax. (Tonya Dalton) This is a 58-year-old male with a history of left radical nephrectomy due to kidney cancer presents emergency department chief complaint of right flank pain that started yesterday. Patient reports a history of recurrent kidney stones and follows with Dr. Madera. Patient contacted his urologist office yesterday morning where he was prescribed Flomax states that the symptoms generally reso lved however they came back today and worsened. He reports nausea and dry heaves with no episodes of emesis. Patient saw his urologist in office last week where he was reported to have found hematuria with no reported evidence of shawna blood in his urine. States that today he has been having some difficulty with urination. (Toña Marrero) - Related Data Home Medications Medication Instructions Recorded Confirmed Esomeprazole Magnesium [NexIUM] 40 mg PO DAILY 02/11/19 09/12/23 Phentermine HCl [Adipex-P] 37.5 mg PO DAILY 09/12/23 09/12/23 Previous Rx's Medication Instructions Recorded HYDROcodone/APAP 5-325MG [[place] 1 tab PO Q6HR PRN 3 Days #12 tab 09/12/23 5-325] Ondansetron Odt [Zofran ODT] 4 mg PO Q8HR PRN #15 tab 09/12/23 Sulfamethox-Tmp 800-160Mg [Bactrim 1 tab PO Q12HR 7 Days #14 tab 09/12/23 DS 800-160 mg] Tamsulosin [Flomax] 0.4 mg PO DAILY 14 Days #14 cap 09/15/23 Allergies Allergy/AdvReac Type Severity Reaction Status Date / Time naproxen [From Aleve] Allergy Dyspnea Verified 07/04/24 15:43 Review of Systems ROS Other: All systems not noted in ROS Statement are negative. <Tonya Dalton - Last Filed: 07/04/24 16:08> ROS Other: All systems not noted in ROS Statement are negative. <Toña Marrero - Last Filed: 07/04/24 20:27> ROS Statement: Those systems with pertinent positive or pertinent negative responses have been documented in the HPI. Past Medical History Past Medical History: Cancer, GERD/Reflux, Skin Disorder, Sleep Apnea/CPAP/BIPAP Additional Past Medical History / Comment(s): psoriasis, has cpap, cancer lt kidney,kidney stones History of Any Multi-Drug Resistant Organisms: None Reported Past Surgical History: Hernia Repair, Orthopedic Surgery Additional Past Surgical History / Comment(s): colonoscopy, kidney removal (lft) scrotal repair, orthoscopic knee repair April 2023 Past Anesthesia/Blood Transfusion Reactions: Motion Sickness Additional Past Anesthesia/Blood Transfusion Reaction / Comment(s): . Past Psychological History: No Psychological Hx Reported Smoking Status: Former smoker Past Alcohol Use History: None Reported Past Drug Use History: None Reported - Past Family History Mother Family Medical History: No Reported History <Tonya Dalton - Last Filed: 07/04/24 16:08> General Exam Limitations: no limitations <Tonya Dalton - Last Filed: 07/04/24 16:08> General appearance: alert, in no apparent distress Neck exam: Present: normal inspection. Absent: tenderness, meningismus, lymphadenopathy Respiratory exam: Present: normal lung sounds bilaterally. Absent: respiratory distress, wheezes, rales, rhonchi, stridor Cardiovascular Exam: Present: regular rate, normal rhythm, normal heart sounds. Absent: systolic murmur, diastolic murmur, rubs, gallop, clicks GI/Abdominal exam: Present: soft, tenderness (RLQ/ right mid abdomen), normal bowel sounds. Absent: distended, guarding, rebound, rigid Extremities exam: Present: normal inspection, full ROM, normal capillary refill. Absent: tenderness, pedal edema, joint swelling, calf tenderness Back exam: Present: normal inspection, CVA tenderness (R) Neurological exam: Present: alert, oriented X3, CN II-XII intact Skin exam: Present: warm, dry, intact, normal color. Absent: rash <Toña Marrero - Last Filed: 07/04/24 20:27> - General Exam Comments Initial Comments: Visual Physical Exam Vital signs reviewed General: Well-appearing, nontoxic, no acute distress. Head: Normocephalic, atraumatic Eyes: PERRLA, EOMI ENT: Airway patent Chest: Nonlabored breathing Skin: No visual rash, normal skin tone Neuro: Alert and oriented 3 Musculoskeletal: No gross abnormalities (Tonya Dalton) Course Vital Signs 07/04/24 15:41 Temperature 97.9 F Pulse Rate 75 Respiratory 16 Rate Blood Pressure 163/94 O2 Sat by Pulse 99 Oximetry Medical Decision Making <Tonya Dalton - Last Filed: 07/04/24 16:08> - Lab Data Result diagrams: 07/04/24 17:05 07/04/24 17:05 <Toña Marrero - Last Filed: 07/04/24 20:27> - Medical Decision Making I performed the quick note portion of this chart. Electronically signed by Tonya Dalton PA-C (Tonya Dalton) Was pt. sent in by a medical professional or institution (BIJAN Stein, AIR POLLUTION CONTROL ENGINEER, urgent care, hospital, or residential...) When possible be specific @ -No Did you speak to anyone other than the patient for history (EMS, parent, family, police, friend...)? What history was obtained from this source @ -No Did you review nursing and triage notes (agree or disagree)? Why? @ -I reviewed and agree with nursing and triage notes Were old charts reviewed (outside hosp., previous admission, EMS record, old EKG, old radiological studies, urgent care reports/EKG's, residential records)? Report findings @ -No old charts were reviewed Differential Diagnosis (chest pain, altered mental status, abdominal pain women, abdominal pain men, vaginal bleeding, weakness, fever, dyspnea, syncope, headache, dizziness, GI bleed, back pain, seizure, CVA, palpatations, mental health, musculoskeletal)? @ -Differential Abdominal Pain Men: Appendicitis, cholecystitis, diverticulosis, ischemic bowel, pancreatitis, hepatitis, UTI, gastroenteritis, AAA, incarcerated hernia, bowel obstruction, constipation, inflammatory bowel, hepatitis, peptic ulcer disease, splenic infarction, perforated viscus, testicular torsion, this is not meant to be an all-inclusive list EKG interpreted by me (3pts min.). @ -None X-rays interpreted by me (1pt min.). @ -None done CT interpreted by me (1pt min.). @ -CT of the abdomen pelvis without contrast reveals an 8 mm calculus in the proximal right ureter with moderate upstream hydronephrosis with status post left nephrectomy U/S interpreted by me (1pt. min.). @ -None done What testing was considered but not performed or refused? (CT, X-rays, U/S, labs)? Why? @ -None What meds were considered but not given or refused? Why? @ -None Did you discuss the management of the patient with other professionals (professionals i.e. , PA, AIR POLLUTION CONTROL ENGINEER, lab, RT, psych nurse, social studies teacher, stave bolt equalizer, teacher, tactical intelligence officer, employment evaluator/case manager)? Give summary @ -I spoke with sound internal medicine physician, Dr. Winslow, in regard to the patient's presentation and CT scan concerning for 8 mm calculus in the proximal right ureter patient is excepted for admission with urology on consult. Additionally, I spoke with on-call urologist, Dr. Mcclendon, who recommends that the patient to be placed as n.p.o. after midnight and surgery will be scheduled for tomorrow for likely stent placement of the right ureter. Was smoking cessation discussed for >3mins.? @ -No Was critical care preformed (if so, how long)? @ -No Were there social determinants of health that impacted care today? How? (Ho melessness, low income, unemployed, alcoholism, drug addiction, transportation, low edu. Level, literacy, decrease access to med. care, senior living, rehab)? @ -No Was there de-escalation of care discussed even if they declined (Discuss DNR or withdrawal of care, Hospice)? DNR status @ -No What co-morbidities impacted this encounter? (DM, HTN, Smoking, COPD, CAD, Cancer, CVA, ARF, Chemo, Hep., AIDS, mental health diagnosis, sleep apnea, morbid obesity)? @ -None Was patient admitted / discharged? Hospital course, mention meds given and route, prescriptions, significant lab abnormalities, going to OR and other pertinent info. @ -admitted. 58-year-old male with right flank and abdominal pain and nausea. Patient was originally evaluated in the emergency department waiting room as a quick note. On my evaluation of the patient he is resting comfortably no signs acute distress. Vitals are stable. Examination reveals right flank and right lower quadrant abdominal pain with no signs of rebound tenderness or rigidity of the right abdomen. Patient will be symptomatically treated with IV fluids, an tiemetics, analgesics pending laboratory salts and CT imaging. He is in agreement this plan. CT scan concerning for an 8 mm calculus in the proximal right ureter with moderate upstream hydronephrosis. Urinalysis negative for signs of infection. Patient will be admitted to internal medicine with urology on consult for ureteral stone with hydronephrosis with urology on consult. Patient will be continued on analgesics and antiemetics. Discussed with Dr. Mejia. Undiagnosed new problem with uncertain prognosis? @ -No Drug Therapy requiring intensive monitoring for toxicity (Heparin, Nitro, Insulin, Cardizem)? @ -No Were any procedures done? @ -No Diagnosis/symptom? @ -ureteral stone Acute, or Chronic, or Acute on Chronic? @ -Acute Uncomplicated (without systemic symptoms) or Complicated (systemic symptoms)? @ -Complicated Side effects of treatment? @ -No Exacerbation, Progression, or Severe Exacerbation? @ -No Poses a threat to life or bodily function? How? (Chest pain, USA, ID, pneumonia, PE, COPD, DKA, ARF, appy, cholecystitis, CVA, Diverticulitis, Homicidal, Suicidal, threat to staff... and all critical care pts) @ -No (Toña Marrero) - Lab Data Lab Results 07/04/24 07/04/24 07/04/24 Range/Units 17:05 17:05 17:05 WBC 15.7 H (3.8-10.6) k/uL RBC 5.26 (4.30-5.90) m/uL Hgb 15.5 (13.0-17.5) gm/dL Hct 47.1 (39.0-53.0) % MCV 89.4 (80.0-100.0) fL MCH 29.5 (25.0-35.0) pg MCHC 33.0 (31.0-37.0) g/dL RDW 14.0 (11.5-15.5) % Plt Count 335 (150-450) k/uL MPV 7.0 Neutrophils % 86 % Lymphocytes % 8 % Monocytes % 4 % Eosinophils % 1 % Basophils % 0 % Neutrophils # 13.5 H (1.3-7.7) k/uL Lymphocytes # 1.2 (1.0-4.8) k/uL Monocytes # 0.7 (0-1.0) k/uL Eosinophils # 0.1 (0-0.7) k/uL Basophils # 0.0 (0-0.2) k/uL Sodium 139 (137-145) mmol/L Potassium 4.2 (3.5-5.1) mmol/L Chloride 108 H (98-107) mmol/L Carbon Dioxide 20 L (22-30) mmol/L Anion Gap 11 mmol/L BUN 23 H (9-20) mg/dL Creatinine 1.34 H (0.66-1.25) mg/dL Est GFR (CKD-EPI)AfAm 68 (>60 ml/min/1.73 sqM) Est GFR (CKD-EPI)NonAf 59 (>60 ml/min/1.73 sqM) Glucose 135 H (74-99) mg/dL Lactic Ac Sepsis Rflx Plasma Lactic Acid Steven 2.1 H* (0.7-2.0) mmol/L Calcium 9.9 (8.4-10.2) mg/dL Total Bilirubin 0.4 (0.2-1.3) mg/dL AST 20 (17-59) U/L ALT 20 (4-49) U/L Alkaline Phosphatase 95 (38-126) U/L Total Protein 7.1 (6.3-8.2) g/dL Albumin 4.3 (3.5-5.0) g/dL Amylase 53 (30-110) U/L Lipase 76 (23-300) U/L Urine Color Urine Appearance (Clear) Urine pH (5.0-8.0) Ur Specific [place] (1.001-1.035) Urine Protein (Negative) Urine Glucose (UA) (Negative) Urine Ketones (Negative) Urine Blood (Negative) Urine Nitrite (Negative) Urine Bilirubin (Negative) Urine Urobilinogen (<2.0) mg/dL Ur Leukocyte Esterase (Negative) Urine RBC (0-5) /hpf Urine WBC (0-5) /hpf Ur Squamous Epith Cells (0-4) /hpf Urine Mucus (None) /hpf 07/04/24 07/04/24 Range/Units 17:34 19:13 WBC (3.8-10.6) k/uL RBC (4.30-5.90) m/uL Hgb (13.0-17.5) gm/dL Hct (39.0-53.0) % MCV (80.0-100.0) fL MCH (25.0-35.0) pg MCHC (31.0-37.0) g/dL RDW (11.5-15.5) % Plt Count (150-450) k/uL MPV Neutrophils % % Lymphocytes % % Monocytes % % Eosinophils % % Basophils % % Neutrophils # (1.3-7.7) k/uL Lymphocytes # (1.0-4.8) k/uL Monocytes # (0-1.0) k/uL Eosinophils # (0-0.7) k/uL Basophils # (0-0.2) k/uL Sodium (137-145) mmol/L Potassium (3.5-5.1) mmol/L Chloride (98-107) mmol/L Carbon Dioxide (22-30) mmol/L Anion Gap mmol/L BUN (9-20) mg/dL Creatinine (0.66-1.25) mg/dL Est GFR (CKD-EPI)AfAm (>60 ml/min/1.73 sqM) Est GFR (CKD-EPI)NonAf (>60 ml/min/1.73 sqM) Glucose (74-99) mg/dL Lactic Ac Sepsis Rflx Y Plasma Lactic Acid Steven (0.7-2.0) mmol/L Calcium (8.4-10.2) mg/dL Total Bilirubin (0.2-1.3) mg/dL AST (17-59) U/L ALT (4-49) U/L Alkaline Phosphatase (38-126) U/L Total Protein (6.3-8.2) g/dL Albumin (3.5-5.0) g/dL Amylase (30-110) U/L Lipase (23-300) U/L Urine Color Yellow Urine Appearance Cloudy (Clear) Urine pH 5.0 (5.0-8.0) Ur Specific [place] 1.015 (1.001-1.035) Urine Protein Trace H (Negative) Urine Glucose (UA) Negative (Negative) Urine Ketones Negative (Negative) Urine Blood Large H (Negative) Urine Nitrite Negative (Negative) Urine Bilirubin Negative (Negative) Urine Urobilinogen <2.0 (<2.0) mg/dL Ur Leukocyte Esterase Trace H (Negative) Urine RBC >182 H (0-5) /hpf Urine WBC 2 (0-5) /hpf Ur Squamous Epith Cells 1 (0-4) /hpf Urine Mucus Occasional H (None) /hpf Disposition <Tonya Dalton - Last Filed: 07/04/24 16:08> Is patient prescribed a controlled substance at d/c from ED?: No Decision to Admit Reason: Admit from EC <Toña Marrero - Last Filed: 07/04/24 20:27> Clinical Impression: Ureteral stone with hydronephrosis Disposition: ADMITTED IP TO THIS [facility] Condition: Stable Referrals: Gee Logan DO [Primary Care Provider] - 1-2 days
[2024-07-04] MEDS: ONDANSETRON 4 MG/2 ML VIAL IVP STA (17:13)
[2024-07-04] MEDS: HYDROmorphone 1 MG/ML 1 ML SYRINGE IVP STA ×2 (17:14→20:16)
[2024-07-04 17:18] LABS: Basophils % (A) 0 %; Eosinophils # (A) 0.1 k/uL (0-0.7); Eosinophils % (A) 1 %; HCT 47.1 % (39.0-53.0); HGB 15.5 gm/dL (13.0-17.5); Lymphocytes # (A) 1.2 k/uL (1.0-4.8); Lymphocytes % (A) 8 %; MCH 29.5 pg (25.0-35.0); MCV 89.4 fL (80.0-100.0); Monocytes # (A) 0.7 k/uL (0-1.0); Monocytes % (A) 4 %; Neutrophils # (A) 13.5 k/uL (1.3-7.7); Neutrophils % (A) 86 %; Platelet Count 335 k/uL (150-450); RBC 5.26 m/uL (4.30-5.90); WBC 15.7 k/uL (3.8-10.6)
[2024-07-04] MEDS: SODIUM CHLORIDE 0.9% 1,000 ML IV STA (17:23)
[2024-07-04 17:31] LABS: ALT 20 U/L (4-49); AST 20 U/L (17-59); African American GFR (CKD) 68 (>60 ml/min/1.73 sqM); Albumin 4.3 g/dL (3.5-5.0); Alkaline Phosphatase 95 U/L (38-126); Amylase 53 U/L (30-110); Anion Gap 11 mmol/L; Blood Urea Nitrogen 23 mg/dL (9-20); Calcium 9.9 mg/dL (8.4-10.2); Carbon Dioxide 20 mmol/L (22-30); Chloride 108 mmol/L (98-107); Glucose 135 mg/dL (74-99); Lipase 76 U/L (23-300); Non-African American GFR(CKD) 59 (>60 ml/min/1.73 sqM); Potassium 4.2 mmol/L (3.5-5.1); Sodium 139 mmol/L (137-145); Total Bilirubin 0.4 mg/dL (0.2-1.3); Total Protein 7.1 g/dL (6.3-8.2)
--- NOTE | 2024-07-04 19:04 | CT ---
EXAMINATION TYPE: CT abdomen pelvis wo con CT DLP: 1606.8 mGycm, Automated exposure control for dose reduction was used. DATE OF EXAM: 07/04/2024 5:03 PM COMPARISON: 09/12/2023. CLINICAL INDICATION:Male, 58 years old with history of R flank pain, hx stones; Right flank pain TECHNIQUE: Axial CT of the abdomen and pelvis. Sagittal and coronal reformats were created on a [employer] workstation. Contrast used: mL of , (none if empty) Oral contrast used: without Oral Contrast (none if empty) FINDINGS: Exam is limited without contrast. LOWER CHEST: Mild bibasilar scarring and/or subsegmental atelectasis. ABDOMEN LIVER: Unremarkable GALLBLADDER AND BILE DUCTS: Unremarkable gallbladder. No biliary ductal dilatation. PANCREAS: Unremarkable. SPLEEN: Unremarkable. ADRENAL GLANDS: Mildly thickened tiny nodular appearance on the left, likely adenomatoid change. KIDNEYS AND URETERS: Left kidney is again absent, on a post surgical basis. There are multiple radiod ensities suggesting clips in the para-aortic region. Presumed scarring is stable with no visible recu rrent mass by this unenhanced exam. On the right, there are is an 8 mm calculus in the proximal urete r with moderate upstream hydronephrosis. Additional slightly staghorn configuration calculus in the l ower pole of the kidney measuring up to 13 mm, plus an ovoid calculus in the lower pole measuring up to 16 mm. A couple additional punctate nonobstructing calculi are present within the kidney. PELVIS BLADDER: Incompletely distended but grossly unremarkable. REPRODUCTIVE: Mildly prominent prostate. ABDOMEN & PELVIS STOMACH AND BOWEL: Stomach and small bowel are nondistended, no evidence of obstruction. The append ix is not seen with certainty but there is no inflammatory process seen in the pericecal region. Mild stool in the colon without acute abnormality shown. PERITONEUM/RETROPERITONEUM: No evidence of pneumoperitoneum or free fluid. VASCULATURE: Moderate atherosclerotic calcifications are present throughout the abdominal aorta and i ts branches. No evidence of aortic aneurysm. LYMPH NODES: No enlarged nodes by CT size criteria. SOFT TISSUE/ABDOMINAL WALL: No acute finding. There is laxity along the anterior abdominal wall betwe en the abdominal rectus muscles, with small superimposed fat-containing umbilical hernia. MUSCULOSKELETAL: No acute osseous abnormalities. Mild/moderate disc degeneration changes are present throughout the thoracolumbar spine. IMPRESSION: 1. Status post left nephrectomy, stable. 2. An 8 mm calculus in the proximal RIGHT ureter with moderate upstream hydronephrosis. 3. Additional nonobstructing right renal calculi. 4. Other chronic and likely incidental findings, as described above. [facility], , 07/04/2024 7:02 PM
[2024-07-04 19:28] LABS: Appearance,Urine Cloudy (Clear); Bilirubin,Urine Negative (Negative); Blood,Urine Large (Negative); Color,Urine Yellow; Glucose,Urine (UA) Negative (Negative); Ketones,Urine Negative (Negative); Leukocyte Esterase,Urine Trace (Negative); Mucus,Urine Occasional /hpf; Nitrite,Urine Negative (Negative); Protein,Urine Trace (Negative); RBC,Urine >182 /hpf (0-5); Specific Gravity,Urine 1.015 (1.001-1.035); Squamous Epithelial Cell,Urine 1 /hpf (0-4); Urobilinogen,Urine <2.0 mg/dL (<2.0); WBC,Urine 2 /hpf (0-5)
[2024-07-04] MEDS ORDERED: NALOXONE 0.4 MG/ML 1 ML VIAL IV PRN (19:52)
[2024-07-04] MEDS: HYDROmorphone 1 MG/ML 1 ML SYRINGE IVP PRN (22:59)
--- NOTE | 2024-07-05 00:53 | P.HPIM ---
History of Present Illness H&P Date: 07/04/24 Chief Complaint: right flank pain 68-year-old male with a history of left nephrectomy secondary to renal cancer, recurrent kidney stones Patient coming in with couple day history of worsening right flank pain with decreased urine output denies any fevers or chills reports some nausea but no vomiting. Pain was getting worse today colicky in nature 10 out of 10 in severity over the back of the right flank and radiates down to the right groin he noticed decreased urine output grew concerned decided come to the hospital for evaluation as he noticed this is similar to his recurrent kidney stones episodes last episode was around September 2023 for which she required to have ureteral stents. Patient denies any trauma to the abdomen denies any GI bleeding or hematuria de nies any fevers or chills denies any nausea or vomiting but admits to dry heaving Patient denies tobacco smoking illicit drugs or heavy alcohol review of systems Pertinent positives as noted in HPI. All other systems were reviewed and are negative on exam Constitutional: No acute distress, conversant, pleasant Eyes: Anicteric sclerae, moist conjunctiva, Pupils equal round reactive to light ENMT: NC/AT Oropharynx clear, no erythema, or exudates Neck: Supple, no masses, or JVD No carotid bruits No thyromegaly Lungs: Clear to auscultation Clear to percussion Normal respiratory effort, no accessory muscle use Cardiovascular: Heart regular in rate and rhythm, No murmurs, gallops, or rubs No peripheral edema Abdominal: Soft Nontender, no guarding, rebound or rigidity Abdomen moving with respiration Normoactive bowel sounds Extremities: No digital cyanosis No clubbing Pedal pulses intact and symmetrical Radial pulses intact and symmetrical No calf tenderness Psychiatric: Alert and oriented to person, place and time Appropriate affect fair judgement Neuro Muscles Strength 5/5 in all 4 extremities Sensation to light touch grossly present throughout Cranial nerves II-XII grossly intact Past Medical History Past Medical History: Cancer, GERD/Reflux, Skin Disorder, Sleep Apnea/CPAP/BIPAP Additional Past Medical History / Comment(s): psoriasis, has cpap, cancer lt kidney,kidney stones History of Any Multi-Drug Resistant Organisms: None Reported Past Surgical History: Hernia Repair, Orthopedic Surgery Additional Past Surgical History / Comment(s): colonoscopy, kidney removal (lft) scrotal repair, orthoscopic knee repair April 2023 Past Anesthesia/Blood Transfusion Reactions: Motion Sickness Additional Past Anesthesia/Blood Transfusion Reaction / Comment(s): . Past Psychological History: No Psychological Hx Reported Smoking Status: Former smoker Past Alcohol Use History: None Reported Past Drug Use History: None Reported - Past Family History Mother Family Medical History: No Reported History Medications and Allergies Home Medications Medication Instructions Recorded Confirmed Type Esomeprazole Magnesium [NexIUM] 40 mg PO DAILY 02/11/19 09/12/23 History HYDROcodone/APAP 5-325MG [[place] 1 tab PO Q6HR PRN 3 Days #12 tab 09/12/23 09/12/23 Rx 5-325] Ondansetron Odt [Zofran ODT] 4 mg PO Q8HR PRN #15 tab 09/12/23 09/12/23 Rx Phentermine HCl [Adipex-P] 37.5 mg PO DAILY 09/12/23 09/12/23 History Sulfamethox-Tmp 800-160Mg [Bact[place] 1 tab PO Q12HR 7 Days #14 tab 09/12/23 09/12/23 Rx DS 800-160 mg] Tamsulosin [Flomax] 0.4 mg PO DAILY 14 Days #14 cap 09/15/23 Rx Allergies Allergy/AdvReac Type Severity Reaction Status Date / Time naproxen [From Aleve] Allergy Dyspnea Verified 07/04/24 15:43 Physical Exam Vitals: Vital Signs Temp Pulse Resp BP Pulse Ox 07/04/24 20:29 98.5 F 97 18 136/85 95 07/04/24 15:41 97.9 F 75 16 163/94 99 Intake and Output 07/04/24 07/04/24 07/05/24 14:59 22:59 06:59 Other: Weight 127.006 kg Results CBC & Chem 7: 07/04/24 17:05 07/04/24 17:05 Labs: Abnormal Lab Results - Last 24 Hours (Table) 07/04/24 07/04/24 07/04/24 Range/Units 17:05 17:05 17:05 WBC 15.7 H (3.8-10.6) k/uL Neutrophils # 13.5 H (1.3-7.7) k/uL Chloride 108 H (98-107) mmol/L Carbon Dioxide 20 L (22-30) mmol/L BUN 23 H (9-20) mg/dL Creatinine 1.34 H (0.66-1.25) mg/dL Glucose 135 H (74-99) mg/dL Plasma Lactic Acid Steven 2.1 H* (0.7-2.0) mmol/L Urine Protein (Negative) Urine Blood (Negative) Ur Leukocyte Esterase (Negative) Urine RBC (0-5) /hpf Urine Mucus (None) /hpf 07/04/24 07/04/24 Range/Units 19:13 19:41 WBC (3.8-10.6) k/uL Neutrophils # (1.3-7.7) k/uL Chloride (98-107) mmol/L Carbon Dioxide (22-30) mmol/L BUN (9-20) mg/dL Creatinine (0.66-1.25) mg/dL Glucose (74-99) mg/dL Plasma Lactic Acid Steven 2.1 H* (0.7-2.0) mmol/L Urine Protein Trace H (Negative) Urine Blood Large H (Negative) Ur Leukocyte Esterase Trace H (Negative) Urine RBC >182 H (0-5) /hpf Urine Mucus Occasional H (None) /hpf Assessment and Plan Assessment: 58-year-old male with recurrent kidney stone, left nephrectomy secondary to renal cancer coming in with severe right flank pain discussed case with ED doctor and accepted the admission for right hydronephrosis secondary to obstructing ureteral stone with anticipated length of stay less than 2 midnights Moderate right hydronephrosis with proximal right ureteral stone CT of the abdomen pelvis showed 8 mm stone in the proximal right ureter with moderate upstream hydronephrosis Pain control with Dilaudid 1 mg IV push every 3 hours as needed for pain Flomax 0.4 mg p.o. daily Urology consult IV fluid hydration status post 1 L normal saline continue with 125 cc/h Monitor urine output Zofran 4 mg IV push every 8 hours as needed for nausea vomiting Leukocytosis 15, afebrile, continue to monitor off antibiotics Urine analysis shows large blood and trace leukocyte esterase Chronic kidney disease with history of left nephrectomy currently stable BUN 23 creatinine 1.3 stable Sodium 139 potassium 4.2 unremarkable Continue to monitor renal function Avoid nephrotoxic meds Full code DVT prophylaxis mechanical secondary to anticipated procedure in the morning N.p.o. after midnight GI prophylaxis Protonix 40 mg p.o. daily
[2024-07-05] MEDS: SODIUM CHLORIDE 0.9% 1,000 ML IV SCH (05:43)
[2024-07-05 09:10] LABS: HCT 44.4 % (39.6-50.0); HGB 14.4 g/dL (13.0-17.0); MCH 28.9 pg (27.0-32.0); MCHC 32.4 g/dL (32.0-37.0); Mean Platelet Volume 9.5 FL (9.5-12.2); NRBC Per 100 WBC 0 X 10*3/uL (0.00-0.01); Platelet Count 276 X 10*3/uL (140-440); RBC 4.99 X 10*6/uL (4.40-5.60); RDW 13.8 % (11.5-14.5)
[2024-07-05 09:11] LABS: Basophils # (A) 0.04 X 10*3/uL (0.00-0.10); Basophils % (A) 0.3 %; Eosinophils # (A) 0.11 X 10*3/uL (0.04-0.35); Eosinophils % (A) 0.8 %; Lymphocytes # (A) 1.86 X 10*3/uL (0.90-5.00); Lymphocytes % (A) 14.3 %; Monocytes # (A) 1.41 X 10*3/uL (0.20-1.00); Monocytes % (A) 10.8 %; Neutrophils # (A) 9.52 X 10*3/uL (1.80-7.70); Neutrophils % (A) 73.3 %
[2024-07-05 09:12] LABS: ALT 17 U/L (10-49); AST 16 U/L (14-35); Albumin 3.8 g/dL (3.8-4.9); Albumin/Globulin Ratio 1.58 Ratio (1.60-3.17); Alkaline Phosphatase 106 U/L (41-126); BUN/Creat Ratio 17.07 Ratio (12.00-20.00); Blood Urea Nitrogen 23.9 mg/dL (9.0-27.0); Calcium 9.1 mg/dL (8.7-10.3); Carbon Dioxide 20.8 mmol/L (21.6-31.8); Chloride 108 mmol/L (96-109); Globulin 2.4 g/dL (1.6-3.3); Glucose 109 mg/dL (70-110); Potassium 4.3 mmol/L (3.5-5.5); Sodium 141 mmol/L (135-145); Total Bilirubin 0.3 mg/dL (0.3-1.2); Total Protein 6.2 g/dL (6.2-8.2)
[2024-07-05] MEDS: PANTOPRAZOLE 40 MG TABLET PO SCH (09:22)
--- NOTE | 2024-07-05 10:36 | P.PN ---
Subjective Progress Note Date: 07/05/24 58 year old M with PMH left nephrectomy secondary to renal cancer, recurrent kidney stones presents to the ED for worsening right flank pain. In the ED he underwent extensive evaluation. BP 163/94, HR 75, RR 16, T 97.9F, 99% on RA. CBC, Coag panel, CMP significant for WBC 15.7, Cl 108, bicarb 20, BUN 23, Cr 1.34, glu 135. Lactic acid 2.1. Amylase + Lipase within normal limits. UA large blood, trace LE, 2 WBCs. CTAP 8 mm calculus in the proximal R ureter with moderate upstream hydronephrosis. Patient admitted for Urology evaluation. 07/05 Patient was seen and examined. Pain controlled with Dilaudid 1 mg IV Q3H. Maintained on NS at 130 cc/h. CBC and CMP significant for WBC 13, bicarb 20.8, AG 12.2. Lactic acid 1.8. General: non toxic, no distress, appears at stated age Derm: warm, dry Head: atraumatic, normocephalic, symmetric Eyes: EOMI, no lid lag, anicteric sclera Mouth: no lip lesion, mucus membranes moist Cardiovascular: S1S2 reg, no murmur Lungs: Clear to auscultation bilateral, no rhonchi, no rales , no accessory muscle use Ext: no gross muscle atrophy, no edema, no contractures Neuro: No focal neurologic deficits Psych: Alert and oriented Based on my assessment of this patient, this patient meets a high complexity level of care. R ureteral nephrolithaisis with R hydronephrosis: Pain control with Dilaudid 1 mg IV Q3H PRN. Zofran 4 mg IV TID PRN N/V. Continue NS at 130 cc/hr. Urology consulted. Leukocytosis: Likely reactive. Does not meet sepsis criteria. Monitor fever prof ile. Lactic acidosis: IV hydration as above. Trend until negative. Chronic kidney disease: Appears at baseline. Abnormal UA: Will watch without antibiotics for now. CODE STATUS: FULL CODE. DVT Prophylaxis: SCD. GI Prophylaxis: Designated medical POA if patient is not able to make medical decisions for themselves: I have reviewed the following pre owned sales consultant notes: I have reviewed the results of the following tests: CBC, CMP, Lactic acid. I have ordered the following tests: I have discussed the care of this patient with the following independent historian: . RN. I have independently interpreted the following test below: I have discussed the management of this patient with the following physician: Objective - Vital Signs Vital signs: Vital Signs Temp 97.9 F 07/05/24 08:10 Pulse 64 07/05/24 08:10 Resp 20 07/05/24 08:10 BP 148/77 07/05/24 08:10 Pulse Ox 98 07/05/24 08:10 FiO2 Intake & Output 07/04/24 07/05/24 07/05/24 18:59 06:59 18:59 Intake Total 650 Balance 650 Weight 127.006 kg 127.006 kg Intake: Intake, IV Titration 650 Amount Sodium Chloride 0.9% 1, 650 000 ml @ 130 mls/hr IV . [facility] Rx#:[id number] Other: # Voids 1 - Labs CBC & Chem 7: 07/05/24 04:07 07/05/24 04:07 Labs: Abnormal Lab Results - Last 24 Hours (Table) 07/04/24 07/04/24 07/04/24 Range/Units 17:05 17:05 17:05 WBC 15.7 H (3.8-10.6) k/uL Neutrophils # 13.5 H (1.3-7.7) k/uL Chloride 108 H (98-107) mmol/L Carbon Dioxide 20 L (22-30) mmol/L BUN 23 H (9-20) mg/dL Creatinine 1.34 H (0.66-1.25) mg/dL Glucose 135 H (74-99) mg/dL Plasma Lactic Acid Steven 2.1 H* (0.7-2.0) mmol/L Urine Protein (Negative) Urine Blood (Negative) Ur Leukocyte Esterase (Negative) Urine RBC (0-5) /hpf Urine Mucus (None) /hpf 07/04/24 07/04/24 Range/Units 19:13 19:41 WBC (3.8-10.6) k/uL Neutrophils # (1.3-7.7) k/uL Chloride (98-107) mmol/L Carbon Dioxide (22-30) mmol/L BUN (9-20) mg/dL Creatinine (0.66-1.25) mg/dL Glucose (74-99) mg/dL Plasma Lactic Acid Steven 2.1 H* (0.7-2.0) mmol/L Urine Protein Trace H (Negative) Urine Blood Large H (Negative) Ur Leukocyte Esterase Trace H (Negative) Urine RBC >182 H (0-5) /hpf Urine Mucus Occasional H (None) /hpf
[2024-07-05] MEDS: IV FLUID CONTINUATION 1,000 ML IV ONE (11:31)
[2024-07-05] MEDS: LACTATED RINGERS 1,000 ML BAG IV STA (11:31)
[2024-07-05] MEDS: ONDANSETRON 4 MG/2 ML VIAL IVP PRN (11:37)
[2024-07-05] MEDS ORDERED: MIDAZOLAM 2 MG/2 ML VIAL ONE (12:19)
[2024-07-05] MEDS ORDERED: fentaNYL (PF) 50 MCG/ML 2 ML AMP ONE (12:19)
[2024-07-05] MEDS ORDERED: LIDOCAINE 1% INJ 10MG/ML (20 ML MDV) ONE (12:19)
[2024-07-05] MEDS ORDERED: PROPOFOL 10 MG/ML 20 ML VIAL IV ONE (12:19)
[2024-07-05] MEDS ORDERED: SUCCINYLCHOLINE CHLORIDE 200 MG/10 ML VIAL IV ONE (12:19)
--- NOTE | 2024-07-05 12:24 | P.GSCN ---
History of Present Illness Consult date: 07/05/24 Reason for Consult: Right ureteral stone History of present illness: This is a 58-year-old male with history of solitary kidney secondary to a left- sided nephrectomy for renal cell carcinoma. Presented to the hospital with right-sided flank pain, underwent a CT abdomen pelvis which showed evidence of a 7 mm right-sided proximal stone and multiple right-sided renal stones. Indicated pain is associated with gross hematuria, denies any dysuria, nausea or vomiting. Does have history of recurrent kidney stones, underwent right-sided stent insertion back in September 2023 for an obstructing stone. At this point he is making able to make some urine but minimal amount. His creatinine is at 1.4 which is at his baseline. Review of Systems - Constitutional Denies fever, Denies weight loss - EENT Ears, nose, mouth and throat: Denies dysphagia - Cardiovascular Denies chest pain, Denies shortness of breath - Respiratory Denies cough, Denies 7 - Gastrointestinal Reports as per HPI - Genitourinary Reports flank pain, Reports hematuria Past Medical History Past Medical History: Cancer, GERD/Reflux, Skin Disorder, Sleep Apnea/CPAP/BIPAP Additional Past Medical History / Comment(s): psoriasis, has cpap, cancer lt kidney,kidney stones History of Any Multi-Drug Resistant Organisms: None Reported Past Surgical History: Hernia Repair, Orthopedic Surgery Additional Past Surgical History / Comment(s): colonoscopy, kidney removal (lft) scrotal repair, orthoscopic knee repair April 2023 Past Anesthesia/Blood Transfusion Reactions: Motion Sickness Additional Past Anesthesia/Blood Transfusion Reaction / Comm: slow to come out of anesthesia this past September. Past Psychological History: No Psychological Hx Reported Smoking Status: Former smoker Past Alcohol Use History: None Reported Additional Past Alcohol Use History / Comment(s): quit smoking approx 2000, smoked approx 20 yrs <1ppd Past Drug Use History: None Reported - Past Family History Mother Family Medical History: No Reported History Medications and Allergies Home Medications Medication Instructions Recorded Confirmed Type RX: Esomeprazole Magnesium [NexIUM] 40 mg PO DAILY 02/11/19 07/05/24 History RX: HYDROcodone/APAP 5-325MG 1 tab PO Q6HR PRN 3 Days #12 tab 09/12/23 07/05/24 Rx [[place] 5-325] RX: Tamsulosin [Flomax] 0.4 mg PO DAILY 14 Days #14 cap 09/15/23 07/05/24 Rx Cyclobenzaprine [Flexeril] 5 mg PO TID PRN 07/05/24 07/05/24 History Allergies Allergy/AdvReac Type Severity Reaction Status Date / Time naproxen [From Aleve] Allergy Dyspnea - Verified 07/05/24 11:53 "messes with heart rate" Surgical - Exam Vital Signs Temp Pulse Resp BP Pulse Ox 97.9 F 75 16 163/94 99 07/04/24 15:41 07/04/24 15:41 07/04/24 15:41 07/04/24 15:41 07/04/24 15:41 - General no distress, moderate pain - Eyes normal ocular movement, no pale - ENT normal nares, normal mucosa - Respiratory normal expansion, normal respiratory effort - Abdomen Abdomen: soft, non tender, no distended - Psychiatric oriented to time, oriented to person, oriented to place Results - Labs 07/05/24 04:07 07/05/24 04:07 Abnormal Lab Results - Last 24 Hours (Table) 07/04/24 07/04/24 07/04/24 Range/Units 17:05 17:05 17:05 WBC 15.7 H (3.8-10.6) k/uL Immature Gran # (0.00-0.04) X 10*3/uL Neutrophils # 13.5 H (1.3-7.7) k/uL Monocytes # (0.20-1.00) X 10*3/uL Chloride 108 H (98-107) mmol/L Carbon Dioxide 20 L (22-30) mmol/L Anion Gap (4.00-12.00) mmol/L BUN 23 H (9-20) mg/dL Creatinine 1.34 H (0.66-1.25) mg/dL Est GFR (CKD-EPI) (>=60) Glucose 135 H (74-99) mg/dL Plasma Lactic Acid Steven 2.1 H* (0.7-2.0) mmol/L Albumin/Globulin Ratio (1.60-3.17) Ratio Urine Protein (Negative) Urine Blood (Negative) Ur Leukocyte Esterase (Negative) Urine RBC (0-5) /hpf Urine Mucus (None) /hpf 07/04/24 07/04/24 07/05/24 Range/Units 19:13 19:41 04:07 WBC 13.00 H (3.8-10.6) k/uL Immature Gran # 0.06 H (0.00-0.04) X 10*3/uL Neutrophils # 9.52 H (1.3-7.7) k/uL Monocytes # 1.41 H (0.20-1.00) X 10*3/uL Chloride (98-107) mmol/L Carbon Dioxide (22-30) mmol/L Anion Gap (4.00-12.00) mmol/L BUN (9-20) mg/dL Creatinine (0.66-1.25) mg/dL Est GFR (CKD-EPI) (>=60) Glucose (74-99) mg/dL Plasma Lactic Acid Steven 2.1 H* (0.7-2.0) mmol/L Albumin/Globulin Ratio (1.60-3.17) Ratio Urine Protein Trace H (Negative) Urine Blood Large H (Negative) Ur Leukocyte Esterase Trace H (Negative) Urine RBC >182 H (0-5) /hpf Urine Mucus Occasional H (None) /hpf 07/05/24 Range/Units 04:07 WBC (3.8-10.6) k/uL Immature Gran # (0.00-0.04) X 10*3/uL Neutrophils # (1.3-7.7) k/uL Monocytes # (0.20-1.00) X 10*3/uL Chloride (98-107) mmol/L Carbon Dioxide 20.8 L (22-30) mmol/L Anion Gap 12.20 H (4.00-12.00) mmol/L BUN (9-20) mg/dL Creatinine (0.66-1.25) mg/dL Est GFR (CKD-EPI) 59 L (>=60) Glucose (74-99) mg/dL Plasma Lactic Acid Steven (0.7-2.0) mmol/L Albumin/Globulin Ratio 1.58 L (1.60-3.17) Ratio Urine Protein (Negative) Urine Blood (Negative) Ur Leukocyte Esterase (Negative) Urine RBC (0-5) /hpf Urine Mucus (None) /hpf Diabetes panel 07/04/24 07/05/24 Range/Units 17:05 04:07 Sodium 139 141 (137-145) mmol/L Potassium 4.2 4.3 (3.5-5.1) mmol/L Chloride 108 H 108 (98-107) mmol/L Carbon Dioxide 20 L 20.8 L (22-30) mmol/L BUN 23 H 23.9 (9-20) mg/dL Creatinine 1.34 H 1.4 (0.66-1.25) mg/dL Glucose 135 H 109 (74-99) mg/dL Calcium 9.9 9.1 (8.4-10.2) mg/dL AST 20 16 (17-59) U/L ALT 20 17 (4-49) U/L Alkaline Phosphatase 95 106 (38-126) U/L Total Protein 7.1 6.2 (6.3-8.2) g/dL Albumin 4.3 3.8 (3.5-5.0) g/dL Calcium panel 07/04/24 07/05/24 Range/Units 17:05 04:07 Calcium 9.9 9.1 (8.4-10.2) mg/dL Albumin 4.3 3.8 (3.5-5.0) g/dL Pituitary panel 07/04/24 07/05/24 Range/Units 17:05 04:07 Sodium 139 141 (137-145) mmol/L Potassium 4.2 4.3 (3.5-5.1) mmol/L Chloride 108 H 108 (98-107) mmol/L Carbon Dioxide 20 L 20.8 L (22-30) mmol/L BUN 23 H 23.9 (9-20) mg/dL Creatinine 1.34 H 1.4 (0.66-1.25) mg/dL Glucose 135 H 109 (74-99) mg/dL Calcium 9.9 9.1 (8.4-10.2) mg/dL Adrenal panel 07/04/24 07/05/24 Range/Units 17:05 04:07 Sodium 139 141 (137-145) mmol/L Potassium 4.2 4.3 (3.5-5.1) mmol/L Chloride 108 H 108 (98-107) mmol/L Carbon Dioxide 20 L 20.8 L (22-30) mmol/L BUN 23 H 23.9 (9-20) mg/dL Creatinine 1.34 H 1.4 (0.66-1.25) mg/dL Glucose 135 H 109 (74-99) mg/dL Calcium 9.9 9.1 (8.4-10.2) mg/dL Total Bilirubin 0.4 0.3 (0.2-1.3) mg/dL AST 20 16 (17-59) U/L ALT 20 17 (4-49) U/L Alkaline Phosphatase 95 106 (38-126) U/L Total Protein 7.1 6.2 (6.3-8.2) g/dL Albumin 4.3 3.8 (3.5-5.0) g/dL Assessment and Plan Assessment: 58-year-old male with history of solitary kidney, and obstructing right ureteral stone. Discussed with him given the solitary kidney I do recommend proceeding with stent insertion urgently. At this point he is unable to make some urine, but discussed given the size of the stone without intervention he will most likely become anuric soon. Discussed with him he will eventually require right- sided ureteroscopy with holmium laser and stent removal. -OR for cystoscopy and right stent insertion Will keep n.p.o. for now, can have a diet after surgery
[2024-07-05] MEDS: SODIUM CHLORIDE 0.9% 100 ML with ceFAZolin 2,000 MG IV ONE (12:30)
--- NOTE | 2024-07-05 12:47 | P.OP ---
Date of Procedure: 07/05/24 Preoperative Diagnosis: Right ureteral stone Postoperative Diagnosis: Same Procedure(s) Performed: Cystoscopy and right stent insertion Implants: 6 Armenian by 26 cm stent in the right ureter Anesthesia: BAKARI Surgeon: Erich Mcclendon Estimated Blood Loss (ml): 1 Pathology: none sent Condition: stable Disposition: PACU Indications for Procedure: This is a 58-year-old male with history of 7 mm right-sided proximal stone and a solitary kidney. Discussed with him given the obstructing stone and a solitary kidney I do recommend proceeding with a stent insertion. Risk benefit and rationale of surgery was discussed with him in details Description of Procedure: Patient brought to the operating room, general anesthesia was induced. He was prepped and draped in sterile fashion placed in a dorsolithotomy position. Cystoscopy with a 21 Armenian sheath was inserted per urethra, cystoscopy was performed showed no abnormality within the bladder. The right ureteral orifice was visualized and intubated with a sensor wire. Next under fluoroscopy a ureteral stent was passed over the wire. The proximal curl was visualized on fluoroscopy and the distal curl was visualized using cystoscope. A hydronephrotic drip was seen. bladder was emptied at end of case Patient was extubated and tolerated procedure well was taken to recovery in stable condition
[2024-07-05] MEDS: ACETAMINOPHEN TAB 325 MG TAB PO PRN (17:33)
[2024-07-06 07:55] VITALS: BP 153/80; PULSE 64; RESP 17; TEMP 98.1
--- NOTE | 2024-07-06 11:33 | P.DS ---
Providers Date of admission: 07/04/24 20:29 Expected date of discharge: 07/06/24 Attending physician: Alexis Winslow MD Consults: 07/04/24 19:52 Consult Physician Routine Consulting Provider: Erich Mcclendon Consult Reason/Comments: 8mm stone, hydronephrosis Do you want consulting provider notified?: Already Contacted [facility] Course: Discharge Diagnosis: Right ureteral nephrolithiasis with right sided hydronephrosis, status post cystoscopy with stent placement Leukocytosis, believed to be reactive and improving. Lactic acidosis, resolved. Metabolic acidosis, improved with IV fluid hydration Chronic kidney disease, appears at baseline and stable. Hospital Course: Patient is a very pleasant 58-year-old male with a past medical history of left nephrectomy secondary to renal cancer and recurrent kidney stones. He presented to the emergency department on 07/04/2024 with a chief complaint of worsening right flank pain. Upon arrival to our facility patient underwent evaluation in the emergency department. Vital signs upon arrival show blood pressure 163/94, heart rate 75, respiratory rate 16, temp 97.9 F, and SpO2 of 99% on room air. Labs were completed and reviewed. CBC showing leukocytosis with WBC count of 15.7 and BMP showing metabolic acidosis with chloride of 108, bicarb of 20, and anion gap of 11 with elevated renal function with BUN of 23, creatinine 1.34, GFR 59 baseline creatinine of 1.22. Lactic acid was elevated at 2.1. Liver profile was unremarkable. Amylase and lipase normal findings. Urinalysis positive for blood and greater than 182 RBCs but negative for infection. CT abdomen and pelvis was completed showing an 8 mm calculus in the proximal right ureter with moderate upstream hydronephrosis and additional nonobstructing right renal calculi. Patient was admitted under our services with consultation to urology. On 07/05/2024 patient underwent a cystoscopy with right sided stent insertion. Patient monitored overnight and reports full resolution of right flank pain. He has been cleared from urology perspective recommending outpatient follow-up in their office and is medically stable for discharge at this time. Patient to follow-up outpatient with PCP in 1 to 2 days and with urology in 1 week. Patient provided with additional prescription for Flomax. Physical exam: Patient seen and examined at bedside. Vital signs reviewed and stable. General: Nontoxic, no distress and appears stated age. Derm: Skin warm and dry, normal coloration for ethnicity. Head: Atraumatic, normocephalic and symmetric. Eyes: EOM's intact, no lid lag, and anicteric sclera Mouth: no lip lesions, mucus membranes moist Cardiovascular: regular rate and rhythm with normal S1S2, no murmur, positive posterior tibial pulses bilaterally, and cap refill < 2 seconds. Lungs: Respirations even, regular, and unlabored on room air. Lungs CTA bilaterally, no rhonchi, no rales, no wheezing, and no accessory muscle usage. Abdominal: soft, nontender to palpation, no guarding, no appreciable organomegaly Ext: ROM intact. No gross muscle atrophy, no edema, no contractures Neuro: Speech clear, face symmetrical and CN II-XII grossly intact with no noted focal neuro deficits Psych: Alert and oriented to person, place, time, and situation. Appropriate and pleasant affect. A total of 33 minutes of time were spent preparing this complex discharge summary. Pt was discharged on 07/06/2024 at 11:31 AM Patient was seen independently by Nurse Practitioner. This document was prepared using [employer] dictation software. Please allow for errors in chief credit officer while rare they do occur. Nelson Stockton NP rendered care for this patient independently, reviewed the findings and plan as documented in the note above. I did not physically speak with or examine the patient on this date. Assessment: . Patient Condition at Discharge: Stable Plan - Discharge Summary Discharge Rx Participant: No New Discharge Prescriptions: Continue Esomeprazole Magnesium [NexIUM] 40 mg PO DAILY HYDROcodone/APAP 5-325MG [[place] 5-325] 1 tab PO Q6HR PRN 3 Days #12 tab PRN Reason: Pain Cyclobenzaprine [Flexeril] 5 mg PO TID PRN PRN Reason: Muscle Spasm Tamsulosin [Flomax] 0.4 mg PO DAILY 30 Days #30 cap Discharge Medication List Esomeprazole Magnesium [NexIUM] 40 mg PO DAILY 02/11/19 [History] HYDROcodone/APAP 5-325MG [[place] 5-325] 1 tab PO Q6HR PRN 3 Days #12 tab 09/12/23 [Rx] Cyclobenzaprine [Flexeril] 5 mg PO TID PRN 07/05/24 [History] Tamsulosin [Flomax] 0.4 mg PO DAILY 30 Days #30 cap 07/06/24 [Rx] Follow up Appointment(s)/Referral(s): Erich Mcclendon MD [STAFF PHYSICIAN] - 07/14/24 10:00 am Gee Logan DO [Primary Care Provider] - 07/09/24 9:20 am Patient Instructions/Handouts: Tamsulosin (By mouth), Kidney Stones (DC), Cystoscopy (DC), Ureteral Stent Placement (DC) Activity/Diet/Wound Care/Special Instructions: Activity: As tolerated. Take breaks as needed. Diet: Resume regular diet. Special Instructions: Take all of your medications as directed and remember to keep all of your doctor's appointments and follow-up as needed. Thank you for allowing us to participate in your care, it was truly a pleasure having you for our patient!!! . Discharge Disposition: HOME SELF-CARE
--- NOTE | 2024-07-06 18:14 | FL ---
EXAMINATION TYPE: FL guidance operating room DATE OF EXAM: 07/05/2024 12:52 PM COMPARISON: Pre Operative Images if available both CT/MRI or plain film CLINICAL INDICATION: Male, 58 years old with history of Cysto with stent insertion; TECHNIQUE: FL guidance operating room, multiple fluoroscopic images provided for procedure. Total fluoroscopy time: 5 seconds Total submitted images to PACS: 3 DAP: 1.6882 mGym2 Gycm2 uGym2 cGycm2 or equivalent. FINDINGS: Multiple intraoperative fluoroscopic images were taken resulting in right ureteral stent placement wi th superior pigtail in appropriate position projecting over the renal pelvis. No immediate intraopera tive complication. Multilevel degeneration changes throughout the spine. IMPRESSION 1. No evidence for intraoperative complication. 2. Please see the operative/procedural note for further details. [facility], , 07/06/2024 6:11 PM
== END 2024-07-06 12:16 | disposition home or self-care (01) ==
LOC: EC 15:35 → 6NMEDSUR 20:29 → 5NMEDONC 22:18
PROVIDERS: ADMIT Internal Medicine; ATTEND Internal Medicine
DX: N13.2 Hydronephrosis with renal and ureteral calculous obstruction (principal); D72.829 Elevated white blood cell count, unspecified; E87.20 Acidosis, unspecified; R82.90 Unspecified abnormal findings in urine; N18.9 Chronic kidney disease, unspecified; G47.30 Sleep apnea, unspecified; K21.9 Gastro-esophageal reflux disease without esophagitis; Z85.528 Personal history of other malignant neoplasm of kidney; Z87.442 Personal history of urinary calculi; Z87.891 Personal history of nicotine dependence; Z90.5 Acquired absence of kidney; Z79.899 Other long term (current) drug therapy; Z88.6 Allergy status to analgesic agent
CPT/HCPCS: 52332; 96376 ×3; 96361 ×3; 96374; 96375; 99285; 36415; 80053 ×2; 82150; 83605; 83690; 85025 ×2; 81001; 74176; G0378 ×4; C2625; J2250; J0330; J2405 ×2; J0690; J2001; J3010; J1170 ×2; J2704

== ENCOUNTER 2024-07-21 07:41 | Day surgery (SDC) | payer BC ==
[2024-07-16 16:12] VITALS: BMI 40.6
--- NOTE | 2024-07-20 11:26 | P.GSHP ---
History of Present Illness H&P Date: 07/20/24 58-year-old gentleman with a solitary right kidney due to a previous left nephrectomy for cancer. He has a history of active uric acid urolithiasis. He recently was in [facility] with an 8 mm proximal right ureteral stone with obstruction. placed a right ureteral stent to relieve the obstruction and drain the kidney. The patient now comes for formal right ureteroscopy laser lithotripsy and probable stone and stent removal complications alternatives have been discussed - Constitutional Constitutional: Denies chills, Denies fever - EENT Eyes: denies blurred vision, denies pain Ears, nose, mouth and throat: Denies headache, Denies sore throat - Cardiovascular Cardiovascular: Denies chest pain, Denies shortness of breath - Respiratory Respiratory: Denies cough, Denies 7 - Gastrointestinal Gastrointestinal: Denies abdominal pain, Denies diarrhea, Denies nausea, Denies vomiting - Genitourinary (Female) Genitourinary: Denies dysuria, Denies hematuria - Genitourinary (Male) Genitourinary: Denies dysuria, Denies hematuria - Musculoskeletal Musculoskeletal: Denies myalgias - Integumentary Integumentary: Denies pruritus, Denies rash - Neurological Neurological: Denies numbness, Denies weakness - Psychiatric Psychiatric: Denies anxiety, Denies depression - Endocrine Endocrine: Denies fatigue, Denies weight change Past Medical History Past Medical History: Cancer, GERD/Reflux, Skin Disorder, Sleep Apnea/CPAP/BIPAP Additional Past Medical History / Comment(s): psoriasis, has cpap, cancer lt kidney,kidney stones History of Any Multi-Drug Resistant Organisms: None Reported Past Surgical History: Hernia Repair, Orthopedic Surgery Additional Past Surgical History / Comment(s): colonoscopy, kidney removal (lft) scrotal repair, Left orthoscopic knee repair April 2023, umbilical hernia repair w/mesh, cystoscopy w/stent placement 07-05-24 Past Anesthesia/Blood Transfusion Reactions: Motion Sickness Additional Past Anesthesia/Blood Transfusion Reaction / Comment(s): slow to come out of anesthesia Smoking Status: Former smoker - Past Family History Mother Family Medical History: No Reported History Medications and Allergies Home Medications Medication Instructions Recorded Confirmed Type Esomeprazole Magnesium [NexIUM] 40 mg PO DAILY 02/11/19 07/16/24 History Cyclobenzaprine [Flexeril] 5 mg PO TID PRN 07/05/24 07/16/24 History Tamsulosin [Flomax] 0.4 mg PO DAILY 30 Days #30 cap 07/06/24 07/16/24 Rx Loratadine-Pseudoeph 10-240 mg 1 tab PO DAILY 07/16/24 07/16/24 History [Claritin-D 24 Hour] Potassium Citrate [Urocit-K] 1 tab PO TID 07/16/24 07/16/24 History traMADol HCL 50 mg PO Q6H 07/16/24 07/16/24 History Allergies Allergy/AdvReac Type Severity Reaction Status Date / Time naproxen [From Aleve] Allergy Dyspnea - Verified 07/16/24 16:03 "messes with heart rate" Results - Imaging CT scan - abdomen: report reviewed, image reviewed CT scan - pelvis: report reviewed, image reviewed Assessment and Plan Assessment: Impression: Right uric acid ureteral calculus with stent and solitary right kidney. History of renal cell carcinoma status post left nephrectomy Recommendations: Right ureteroscopy laser lithotripsy.
[~2024-07-21 07:41] MED LIST changes: -DEXAMETHASONE SOD PHOSPHATE 4 MG/ML 1 ML VIAL IV ONE; -LACTATED RINGERS 1,000 ML IV SCH; -ONDANSETRON 4 MG/2 ML VIAL IVP ONE
--- NOTE | 2024-07-21 08:06 | XR ---
EXAMINATION TYPE: XR KUB DATE OF EXAM: 07/21/2024 COMPARISON: 07/04/2024 HISTORY: Flank pain TECHNIQUE: One view abdominal series FINDINGS: The osseous structures are intact. The bowel gas pattern is nonspecific. Right-sided double-J ureter al stent. Calcifications in the pelvis are likely vascular. There is a punctate calcification near th e UVJ on the right overlying the stent measuring 1 to 2 mm. There is a calcification in the region of the lower pole the right kidney measuring 1.6 cm. Surgical clips are also noted overlying the abdome n. IMPRESSION: 1. Questionable punctate calcification overlying the distal ureteral stent. 2. Right-sided nephrolithiasis.. [facility], , 07/21/2024 8:04 AM
[2024-07-21 08:17] VITALS: RESP 16
[2024-07-21] MEDS: LACTATED RINGERS 1,000 ML IV SCH (08:25)
[2024-07-21] MEDS: DEXAMETHASONE SOD PHOSPHATE 4 MG/ML 1 ML VIAL IV ONE (08:27)
[2024-07-21] MEDS: ONDANSETRON 4 MG/2 ML VIAL IVP ONE (08:27)
[2024-07-21] MEDS: IV FLUID CONTINUATION 1,000 ML IV ONE (08:31)
[2024-07-21] MEDS ORDERED: MIDAZOLAM 2 MG/2 ML VIAL ONE (08:55)
[2024-07-21] MEDS ORDERED: LIDOCAINE 1% INJ 10MG/ML (20 ML MDV) ONE (08:55)
[2024-07-21] MEDS ORDERED: SUCCINYLCHOLINE CHLORIDE 200 MG/10 ML VIAL IV ONE (08:55)
[2024-07-21] MEDS ORDERED: KETOROLAC 15 MG/ML 1 ML VIAL ONE (08:55)
[2024-07-21] MEDS ORDERED: PROPOFOL 10 MG/ML 20 ML VIAL IV ONE (08:55)
[2024-07-21] MEDS ORDERED: fentaNYL (PF) 50 MCG/ML 2 ML AMP ONE (08:55)
[2024-07-21] MEDS: ceFAZolin 3 GM in SODIUM CHLORIDE 0.9% 100 ML IVPB PRN (08:59)
[2024-07-21 10:12] VITALS: TEMP 97
--- NOTE | 2024-07-21 10:15 | P.OP ---
Date of Procedure: 07/21/24 Preoperative Diagnosis: Right ureteral calculus with obstruction status post stent placement, uric acid urolithiasis, right renal stones Postoperative Diagnosis: Same Procedure(s) Performed: Cystoscopy, right ureteroscopy with laser lithotripsy, right renoscopy with laser lithotripsy, replacement of 626 stent Anesthesia: BAKARI Surgeon: Deepak Madera Estimated Blood Loss (ml): 10 Pathology: none sent Condition: stable Disposition: PACU Indications for Procedure: Patient is 58. He has a solitary right kidney due to previous left nephrectomy for cancer. He recently dropped a stone in the ureter and placed a stent right ureter and kidney to relieve the obstruction and pain. He now comes for formal stone removal of the ureter and to reassess the renal stone seen on computed tomography scan Description of Procedure: Patient brought operating suite. Given a general anesthetic. Placed lithotomy position with a sterile prep and drape. Cystoscopy Foroblique lens and 21- British sheath identifies a high riding bladder neck and the prostate. The bladder wall shows some trabeculation. The stent was seen out of the right ureteral orifice. It is removed. An 035 wires passed up into the kidney. Over the wires placed an 11- 13-British sheath. The inner sheath is removed. The proximal ureteral stone On the right flow to back into the kidney. I followed him in the kidney with the flexible scope and break it into small pieces. There was a 16 mm lower pole stone seen on computed tomography scan. Laser lithotripter I break this into smaller pieces however it is incomplete just due to Edema and Diminished visibility in the kidney.I thus elected terminate the procedure. An 035 wires passed up into the kidney and backloaded onto the cystoscope. Over the wires passed a 6 x 26 double-J catheter that coils in the renal pelvis and in the bladder. Second look ureteroscopy to remove the remaining stone we done in the near future. The patient is awakened and returned recovery room good condition. He tolerated procedure well.
--- NOTE | 2024-07-21 10:30 | FL ---
EXAMINATION TYPE: FL guidance operating room DATE OF EXAM: 07/21/2024 10:02 AM COMPARISON: Pre Operative Images if available both CT/MRI or plain film CLINICAL INDICATION: Male, 58 years old with history of Rt Kidney Stone; TECHNIQUE: FL guidance operating room, multiple fluoroscopic images provided for procedure. Total fluoroscopy time: 6.5 seconds Total submitted images to PACS: 2 DAP: 0.01585 mGym2 Gycm2 uGym2 cGycm2 or equivalent. FINDINGS: Multiple intraoperative fluoroscopic images were taken resulting in ureteral stent placement with sup erior pigtail in appropriate position projecting over the renal pelvis. No immediate intraoperative c omplication. Multilevel degeneration changes throughout the spine. IMPRESSION: 1. No evidence for intraoperative complication. 2. Please see the operative/procedural note for further details. [facility], , 07/21/2024 10:28 AM
[2024-07-21 11:25] VITALS: BP 127/81; PULSE 85
== END 2024-07-21 11:48 | disposition home or self-care (01) ==
LOC: OR 07:41
PROVIDERS: ATTEND Urology
CPT/HCPCS: 74018

== ENCOUNTER 2024-07-22 16:27 | Emergency (ER) | payer BC ==
--- NOTE | 2024-07-22 17:08 | ED ---
Recheck HPI <Jarett Victoria - Last Filed: 07/22/24 22:43> - General Source: patient, RN notes reviewed, old records reviewed Mode of arrival: ambulatory Limitations: no limitations - History of Present Illness MD Complaint: abnormal lab (Pain with decreased urination) -: days(s) Returns Today for: persistent/worsening pain related to initial visit Symptoms Since Prior Visit: worsening pain Associated Symptoms: none Treatments Prior to Arrival: other <Akbar Whitmore - Last Filed: 08/03/24 18:23> - General Chief Complaint: Urogenital Stated Complaint: Stomach pain, side pain Time Seen by Provider: 07/22/24 17:07 - History of Present Illness Initial Comments: This is a 58-year-old female to the ER for evaluation. This patient presents to us today for evaluation regards to recent urologic procedure with specific signi ficant pain and decreased urinary output, history 1 kidney (Akbar Whitmore) - Related Data Home Medications Medication Instructions Recorded Confirmed Esomeprazole Magnesium [NexIUM] 40 mg PO DAILY 02/11/19 08/03/24 Cyclobenzaprine [Flexeril] 5 mg PO TID PRN 07/05/24 08/03/24 Loratadine-Pseudoeph 10-240 mg 1 tab PO DAILY 07/16/24 08/03/24 [Claritin-D 24 Hour] Potassium Citrate [Urocit-K] 1 tab PO TID 07/16/24 08/03/24 traMADol HCL 50 mg PO Q6H PRN 07/16/24 08/03/24 HYDROcodone/APAP 5-325MG [[place] 1 tab PO Q4HR PRN 07/22/24 08/03/24 5-325] Ondansetron [Zofran] 4 mg PO Q8HR PRN 07/22/24 08/03/24 Tamsulosin [Flomax] 0.4 mg PO BID 07/22/24 08/03/24 Allergies Allergy/AdvReac Type Severity Reaction Status Date / Time naproxen [From Aleve] Allergy Dyspnea - Verified 08/03/24 08:43 "messes with heart rate" NSAIDS (Non-Steroidal Allergy per Verified 08/03/24 08:43 Anti-Inflamma patient only to aleve Monoamine Oxidase Inhibitors AdvReac patient Verified 08/03/24 08:43 denies, states only allergy to aleve Review of Systems ROS Other: All systems not noted in ROS Statement are negative. <Jarett Victoria - Last Filed: 07/22/24 22:43> ROS Other: All systems not noted in ROS Statement are negative. <Akbar Whitmore - Last Filed: 08/03/24 18:23> ROS Statement: Those systems with pertinent positive or pertinent negative responses have been documented in the HPI. Past Medical History Past Medical History: Cancer, GERD/Reflux, Skin Disorder, Sleep Apnea/CPAP/BIPAP Additional Past Medical History / Comment(s): psoriasis, has cpap, cancer lt kidney,kidney stones History of Any Multi-Drug Resistant Organisms: None Reported Past Surgical History: Hernia Repair, Orthopedic Surgery Additional Past Surgical History / Comment(s): colonoscopy, kidney removal (lft) scrotal repair, Left orthoscopic knee repair April 2023, umbilical hernia repair w/mesh, cystoscopy w/stent placement 07-05-24 Past Anesthesia/Blood Transfusion Reactions: Motion Sickness Additional Past Anesthesia/Blood Transfusion Reaction / Comment(s): slow to come out of anesthesia Past Psychological History: No Psychological Hx Reported Smoking Status: Former smoker - Past Family History Mother Family Medical History: No Reported History <Akbar Whitmore - Last Filed: 08/03/24 18:23> General Exam Limitations: no limitations General appearance: alert, in no apparent distress Head exam: Present: atraumatic, normocephalic, normal inspection Eye exam: Present: normal appearance, PERRL, EOMI. Absent: scleral icterus, conjunctival injection, periorbital swelling ENT exam: Present: normal exam, mucous membranes moist Neck exam: Present: normal inspection. Absent: tenderness, meningismus, lymphadenopathy Respiratory exam: Present: normal lung sounds bilaterally. Absent: respiratory distress, wheezes, rales, rhonchi, stridor Cardiovascular Exam: Present: regular rate, normal rhythm, normal heart sounds. Absent: systolic murmur, diastolic murmur, rubs, gallop, clicks GI/Abdominal exam: Present: soft, normal bowel sounds. Absent: distended, tenderness, guarding, rebound, rigid Extremities exam: Present: normal inspection, full ROM, normal capillary refill. Absent: tenderness, pedal edema, joint swelling, calf tenderness Back exam: Present: normal inspection Neurological exam: Present: alert, oriented X3, CN II-XII intact Psychiatric exam: Present: normal affect, normal mood Skin exam: Present: warm, dry, intact, normal color. Absent: rash <Akbar Whitmore - Last Filed: 08/03/24 18:23> Course <Akbar Whitmore - Last Filed: 08/03/24 18:23> Vital Signs 07/22/24 07/22/24 07/22/24 16:56 18:23 20:18 Temperature 98.5 F 98.2 F Pulse Rate 85 75 79 Respiratory 18 22 18 Rate Blood Pressure 171/99 145/89 142/79 O2 Sat by Pulse 98 98 95 Oximetry 07/22/24 22:54 Temperature 98.1 F Pulse Rate 84 Respiratory 18 Rate Blood Pressure 140/100 O2 Sat by Pulse 98 Oximetry - Reevaluation(s) Reevaluation #1: 07/22/24 19:30 Records reviewed (Akbar Whitmore) Reevaluation #2: 07/22/24 19:30 Patient symptoms improved (Akbar Whitmore) Reevaluation #4: Patient symptoms improved here in the ER (Akbar Whitmore) Reevaluation #5: Differential Abdominal Pain Men: Appendicitis, cholecystitis, diverticulosis, ischemic bowel, pancreatitis, hepatitis, UTI, gastroenteritis, AAA, incarcerated hernia, bowel obstruction, constipation, inflammatory bowel, hepatitis, peptic ulcer disease, splenic infarction, perforated viscus, testicular torsion, this is not meant to be an all-inclusive list (Akbar Whitmore) Medical Decision Making - Lab Data Result diagrams: 07/22/24 18:15 07/22/24 18:15 <Jarett Victoria - Last Filed: 07/22/24 22:43> - Lab Data Result diagrams: 07/22/24 18:15 07/22/24 18:15 <Akbar Whitmore - Last Filed: 08/03/24 18:23> - Medical Decision Making Was pt. sent in by a medical professional or institution (, PA, NOVELTY CHAIN MAKER, urgent care, hospital, or [facility]...) When possible be specific @ -No Did you speak to anyone other than the patient for history (EMS, parent, family, police, friend...)? What history was obtained from this source @ -No Did you review nursing and triage notes (agree or disagree)? Why? @ -I reviewed and agree with nursing and triage notes Were old charts reviewed (outside hosp., previous admission, EMS record, old EKG, old radiological studies, urgent care reports/EKG's, [facility] records)? Report findings @ -No old charts were reviewed Differential Abdominal Pain Men: Appendicitis, cholecystitis, diverticulosis, ischemic bowel, pancreatitis, hepatitis, UTI, gastroenteritis, AAA, incarcerated hernia, bowel obstruction, constipation, inflammatory bowel, hepatitis, peptic ulcer disease, splenic i nfarction, perforated viscus, testicular torsion, this is not meant to be an all-inclusive list EKG interpreted by me (3pts min.). @ -As above X-rays interpreted by me (1pt min.). @ -None done CT interpreted by me (1pt min.). @ -CT showing stent with mild hydronephrosis, perinephric fat stranding.] U/S interpreted by me (1pt. min.). @ -None done What testing was considered but not performed or refused? (CT, X-rays, U/S, labs)? Why? @ -None What meds were considered but not given or refused? Why? @ -None Did you discuss the management of the patient with other professionals (professionals i.e. , PA, NOVELTY CHAIN MAKER, lab, RT, psych nurse, licensed social worker, loan reviewer, teacher, uniform patrol police officer, top case assembler)? Give summary @ -Discussed with Dr. Madera, the decreased urine output and mild DOYLE felt to be prerenal. I do agree with this. After IV fluids the patient is able to void and feel significantly better. No further vomiting. Was smoking cessation discussed for >3mins.? @ -No Was critical care preformed (if so, how long)? @ -No Were there social determinants of health that impacted care today? How? (Homelessness, low income, unemployed, alcoholism, drug addiction, transportation, low edu. Level, literacy, decrease access to med. care, [facility], rehab)? @ -No Was there de-escalation of care discussed even if they declined (Discuss DNR or withdrawal of care, Hospice)? DNR status @ -No What co-morbidities impacted this encounter? (DM, HTN, Smoking, COPD, CAD, Cancer, CVA, ARF, Chemo, Hep., AIDS, mental health diagnosis, sleep apnea, morbid obesity)? @ -Recent stent for obstructing kidney stone Was patient admitted / discharged? Hospital course, mention meds given and route, prescriptions, significant lab abnormalities, going to OR and other pertinent info. @ -[88-year-old male with flank pain, decreased urine output and hematuria. Patient given IV fluids for DOYLE. CT scan is consistent with recent urological procedure with no new process identified. After fluids patient is able to void and feel significantly better. His pain is controlled. He is stable for discharge at this time with urology follow-up. Undiagnosed new problem with uncertain prognosis? @ -No Drug Therapy requiring intensive monitoring for toxicity (Heparin, Nitro, Insulin, Cardizem)? @ -No Were any procedures done? @ -No Diagnosis/symptom? @Prerenal DOYLE, flank pain, recent stent Acute, or Chronic, or Acute on Chronic? @ -Acute Uncomplicated (without systemic symptoms) or Complicated (systemic symptoms)? @ -Default Side effects of treatment? @ -No Exacerbation, Progression, or Severe Exacerbation? @ -No Poses a threat to life or bodily function? How? (Chest pain, [place], HI, pneumonia, PE, COPD, DKA, ARF, appy, cholecystitis, CVA, Diverticulitis, Homicidal, Suicidal, threat to staff... and all critical care pts) @ -No (Jarett Victoria) - Lab Data Lab Results 07/22/24 07/22/24 07/22/24 Range/Units 18:15 18:15 22:28 WBC 13.1 H (3.8-10.6) k/uL RBC 5.23 (4.30-5.90) m/uL Hgb 15.2 (13.0-17.5) gm/dL Hct 46.9 (39.0-53.0) % MCV 89.8 (80.0-100.0) fL MCH 29.1 (25.0-35.0) pg MCHC 32.4 (31.0-37.0) g/dL RDW 13.9 (11.5-15.5) % Plt Count 271 (150-450) k/uL MPV 6.9 Neutrophils % 77 % Lymphocytes % 11 % Monocytes % 9 % Eosinophils % 2 % Basophils % 0 % Neutrophils # 10.0 H (1.3-7.7) k/uL Lymphocytes # 1.5 (1.0-4.8) k/uL Monocytes # 1.1 H (0-1.0) k/uL Eosinophils # 0.2 (0-0.7) k/uL Basophils # 0.0 (0-0.2) k/uL Sodium 137 (137-145) mmol/L Potassium 5.9 H (3.5-5.1) mmol/L Chloride 107 (98-107) mmol/L Carbon Dioxide 20 L (22-30) mmol/L Anion Gap 10 mmol/L BUN 34 H (9-20) mg/dL Creatinine 2.28 H (0.66-1.25) mg/dL Est GFR (CKD-EPI)AfAm 36 (>60 ml/min/1.73 sqM) Est GFR (CKD-EPI)NonAf 31 (>60 ml/min/1.73 sqM) Glucose 100 H (74-99) mg/dL Calcium 9.0 (8.4-10.2) mg/dL Total Bilirubin 1.3 (0.2-1.3) mg/dL AST 56 (17-59) U/L ALT 22 (4-49) U/L Alkaline Phosphatase 83 (38-126) U/L Total Protein 7.2 (6.3-8.2) g/dL Albumin 4.2 (3.5-5.0) g/dL Amylase 54 (30-110) U/L Lipase 72 (23-300) U/L Urine Color Light Red Urine Appearance Cloudy (Clear) Urine pH 5.5 (5.0-8.0) Ur Specific [place] 1.013 (1.001-1.035) Urine Protein 1+ H (Negative) Urine Glucose (UA) Negative (Negative) Urine Ketones Negative (Negative) Urine Blood Large H (Negative) Urine Nitrite Negative (Negative) Urine Bilirubin Negative (Negative) Urine Urobilinogen <2.0 (<2.0) mg/dL Ur Leukocyte Esterase Large H (Negative) Urine RBC >182 H (0-5) /hpf Urine WBC 40 H (0-5) /hpf Urine Bacteria Occasional H (None) /hpf Urine Yeast (Budding) Rare H (None) /hpf Disposition Is patient prescribed a controlled substance at d/c from ED?: No Time of Disposition: 22:46 <Jarett Victoria - Last Filed: 07/22/24 22:43> <Akbar Whitmore - Last Filed: 08/03/24 18:23> Clinical Impression: Ureteral calculus, right, Hydroureteronephrosis, Dehydration Disposition: HOME SELF-CARE Condition: Fair Instructions (If sedation given, give patient instructions): Dehydration (ED), Flank Pain (ED) Referrals: Gee Logan DO [Primary Care Provider] - 1-2 days Deepak Madera MD [STAFF PHYSICIAN] - 1-2 days
--- NOTE | 2024-07-22 18:11 | XR ---
EXAMINATION TYPE: XR KUB DATE OF EXAM: 07/22/2024 COMPARISON: 07/21/2024 INDICATION: Abdomen pain TECHNIQUE: Single view abdomen upright view FINDINGS: Nonspecific bowel gas is present. Psoas margins are normal. No organomegaly is present. Pigtail catheter is present on the right. Postsurgical clips are within the left abdomen IMPRESSION: 1. No suspicious acute changes. 2. Postsurgical changes and a ureteral stent. [facility], Workstation: [facility], 07/22/2024 6:09 PM
[2024-07-22] MEDS: HYDROmorphone 0.5 MG/0.5 ML SYRINGE IVP STA (18:18)
[2024-07-22] MEDS: ONDANSETRON 4 MG/2 ML VIAL IVP STA (18:18)
[2024-07-22] MEDS: SODIUM CHLORIDE 0.9% 1,000 ML IV STA ×2 (18:20→20:25)
[2024-07-22 18:31] LABS: Basophils % (A) 0 %; Eosinophils # (A) 0.2 k/uL (0-0.7); Eosinophils % (A) 2 %; HCT 46.9 % (39.0-53.0); HGB 15.2 gm/dL (13.0-17.5); Lymphocytes # (A) 1.5 k/uL (1.0-4.8); Lymphocytes % (A) 11 %; MCH 29.1 pg (25.0-35.0); MCHC 32.4 g/dL (31.0-37.0); MCV 89.8 fL (80.0-100.0); Mean Platelet Volume 6.9; Monocytes # (A) 1.1 k/uL (0-1.0); Monocytes % (A) 9 %; Neutrophils % (A) 77 %; Platelet Count 271 k/uL (150-450); RBC 5.23 m/uL (4.30-5.90); RDW 13.9 % (11.5-15.5); WBC 13.1 k/uL (3.8-10.6)
[2024-07-22 18:43] LABS: ALT 22 U/L (4-49); African American GFR (CKD) 36 (>60 ml/min/1.73 sqM); Amylase 54 U/L (30-110); Anion Gap 10 mmol/L; Blood Urea Nitrogen 34 mg/dL (9-20); Carbon Dioxide 20 mmol/L (22-30); Chloride 107 mmol/L (98-107); Lipase 72 U/L (23-300); Non-African American GFR(CKD) 31 (>60 ml/min/1.73 sqM); Sodium 137 mmol/L (137-145); Total Bilirubin 1.3 mg/dL (0.2-1.3)
[2024-07-22 18:56] LABS: Albumin 4.2 g/dL (3.5-5.0); Potassium 5.9 mmol/L (3.5-5.1); Total Protein 7.2 g/dL (6.3-8.2)
[2024-07-22 18:57] LABS: AST 56 U/L (17-59); Alkaline Phosphatase 83 U/L (38-126); Glucose 100 mg/dL (74-99)
[2024-07-22 20:19] VITALS: RESP 18
[2024-07-22] MEDS: HYDROmorphone 1 MG/ML 1 ML SYRINGE IVP STA (20:27)
--- NOTE | 2024-07-22 20:57 | CT ---
EXAMINATION TYPE: CT abdomen pelvis wo con CT DLP: 1461.4 mGycm, Automated exposure control for dose reduction was used. DATE OF EXAM: 07/22/2024 8:48 PM COMPARISON: 07/04/2024 CLINICAL INDICATION: Male, 58 years old with history of pain; Right flank pain, lithotripsy and stent placed yesterday. Hx of Left kidney Ca-nephrectomy.Right flank pain, lithotripsy and stent placed ye sterday. Hx of Left kidney Ca-nephrectomy. TECHNIQUE: Axial CT abdomen pelvis wo con;Sagittal and coronal reformats were created on a separate workstation. Contrast used: mL of , (none if empty) Oral contrast used: without Oral Contrast (none if empty) FINDINGS: LOWER CHEST: Unremarkable ABDOMEN LIVER: Unremarkable GALLBLADDER AND BILE DUCTS: Unremarkable. PANCREAS: Unremarkable. SPLEEN: Unremarkable. ADRENAL GLANDS: Unremarkable. KIDNEYS AND URETERS: Right ureteral stent with superior and inferior pigtail in appropriate position. Calculus present near the proximal right renal pelvis noted series 201 and image 73. Additional nono bstructing right renal calculi measuring 8 and 17 mm. The left kidney is surgically absent. There rem ains mild to moderate right hydronephrosis. Perinephric edema around the right kidney. PELVIS BLADDER: Foci of gas in the nondependent portion of the bladder lumen likely post treatment changes. REPRODUCTIVE: Unremarkable. ABDOMEN & PELVIS STOMACH AND BOWEL: No evidence of bowel obstruction. Large amount stool in the right colon. PERITONEUM/RETROPERITONEUM: No evidence of pneumoperitoneum or free fluid. VASCULATURE: No evidence of aortic aneurysm. MUSCULOSKELETAL: No acute osseous abnormalities LYMPH NODES: No gross evidence for lymphadenopathy. SOFT TISSUE/ABDOMINAL WALL: Fat-containing umbilical hernia. IMPRESSION: 1. Right ureteral stent with at least one stone near the proximal stent near the renal pelvis. There remains mild to moderate right hydronephrosis. 2. Left kidney is surgically absent no abnormal lymphadenopathy or soft tissue identified. 3. Large amount stool in the right colon correlate for ileus. [facility], Workstation: [id number], 07/22/2024 8:55 PM
[2024-07-22 22:57] VITALS: BP 140/100; PULSE 84; TEMP 98.1
[2024-07-22 22:57] LABS: Appearance,Urine Cloudy (Clear); Bacteria,Urine Occasional /hpf; Bilirubin,Urine Negative (Negative); Blood,Urine Large (Negative); Budding Yeast,Urine Rare /hpf; Color,Urine Light Red; Glucose,Urine (UA) Negative (Negative); Ketones,Urine Negative (Negative); Leukocyte Esterase,Urine Large (Negative); Nitrite,Urine Negative (Negative); PH, Urine 5.5 (5.0-8.0); Protein,Urine 1+ (Negative); RBC,Urine >182 /hpf (0-5); Specific Gravity,Urine 1.013 (1.001-1.035); Urobilinogen,Urine <2.0 mg/dL (<2.0); WBC,Urine 40 /hpf (0-5)
== END 2024-07-22 23:15 | disposition home or self-care (01) ==
LOC: EC 16:27
DX: N13.2 Hydronephrosis with renal and ureteral calculous obstruction (principal); E86.0 Dehydration; Z87.891 Personal history of nicotine dependence; Z88.6 Allergy status to analgesic agent
CPT/HCPCS: 51798; 36415; 80053; 82150; 83690; 85025; 81001; 74018; 74176; 99284; 96374; 96376; 96375; 96361 ×3; J2405; J1171 ×2

== ENCOUNTER 2024-08-04 07:34 | Observation (INO) | payer BC ==
--- NOTE | 2024-08-03 19:19 | P.GSHP ---
History of Present Illness H&P Date: 08/03/24 58 yo male with a solitary right kidney [s/p lt nephrectomy for renal cell ca] recently had a stent placed for an obstructing ureteral stone rt. I then did right ureteroscopy with laser lithotripsy. There are still some small fragments so therefore he comes for a second and hopefully final ureteroscopy with laser lithotrispy. The risks , complications and alternatives have been explained. - Constitutional Constitutional: Denies chills, Denies fever - EENT Eyes: denies blurred vision, denies pain Ears, nose, mouth and throat: Denies headache, Denies sore throat - Cardiovascular Cardiovascular: Denies chest pain, Denies shortness of breath - Respiratory Respiratory: Denies cough, Denies 7 - Gastrointestinal Gastrointestinal: Denies abdominal pain, Denies diarrhea, Denies nausea, Denies vomiting - Genitourinary (Female) Genitourinary: Denies dysuria, Denies hematuria - Genitourinary (Male) Genitourinary: Denies dysuria, Denies hematuria - Musculoskeletal Musculoskeletal: Denies myalgias - Integumentary Integumentary: Denies pruritus, Denies rash - Neurological Neurological: Denies numbness, Denies weakness - Psychiatric Psychiatric: Denies anxiety, Denies depression - Endocrine Endocrine: Denies fatigue, Denies weight change Past Medical History Past Medical History: Cancer, GERD/Reflux, Skin Disorder, Sleep Apnea/CPAP/BIPAP Additional Past Medical History / Comment(s): psoriasis, has cpap, cancer lt kidney,kidney stones History of Any Multi-Drug Resistant Organisms: None Reported Past Surgical History: Hernia Repair, Orthopedic Surgery Additional Past Surgical History / Comment(s): colonoscopy, kidney removal (lft) scrotal repair, Left orthoscopic knee repair April 2023, umbilical hernia repair w/mesh, cystoscopy w/stent placement 07-05-24, cysto/litho w/right ureteral stent 07/21/24 Past Anesthesia/Blood Transfusion Reactions: Motion Sickness Additional Past Anesthesia/Blood Transfusion Reaction / Comment(s): slow to come out of anesthesia Smoking Status: Former smoker - Past Family History Mother Family Medical History: No Reported History Medications and Allergies Home Medications Medication Instructions Recorded Confirmed Type Esomeprazole Magnesium [NexIUM] 40 mg PO DAILY 02/11/19 08/03/24 History Cyclobenzaprine [Flexeril] 5 mg PO TID PRN 07/05/24 08/03/24 History Loratadine-Pseudoeph 10-240 mg 1 tab PO DAILY 07/16/24 08/03/24 History [Claritin-D 24 Hour] Potassium Citrate [Urocit-K] 1 tab PO TID 07/16/24 08/03/24 History traMADol HCL 50 mg PO Q6H PRN 07/16/24 08/03/24 History HYDROcodone/APAP 5-325MG [[place] 1 tab PO Q4HR PRN 07/22/24 08/03/24 History 5-325] Ondansetron [Zofran] 4 mg PO Q8HR PRN 07/22/24 08/03/24 History Tamsulosin [Flomax] 0.4 mg PO BID 07/22/24 08/03/24 History Allergies Allergy/AdvReac Type Severity Reaction Status Date / Time naproxen [From Aleve] Allergy Dyspnea - Verified 08/03/24 08:43 "messes with heart rate" NSAIDS (Non-Steroidal Allergy per Verified 08/03/24 08:43 Anti-Inflamma patient only to aleve Monoamine Oxidase Inhibitors AdvReac patient Verified 08/03/24 08:43 denies, states only allergy to aleve Surgical - Exam - General well developed, well nourished, no distress - Eyes normal ocular movement, no icteric - ENT no hearing loss, no congestion - Neck no masses, trachea midline - Respiratory normal respiratory effort, clear to auscultation - Abdomen Abdomen: soft, non tender, no guarding, no rigid, no rebound - Integumentary no rash, no abnormal pigmentation - Neurologic no disoriented, no combative - Psychiatric oriented to time, oriented to person, oriented to place, speech is normal, memory intact Results - Imaging Abdominal x-ray: report reviewed, image reviewed CT scan - abdomen: report reviewed, image reviewed CT scan - pelvis: report reviewed, image reviewed Assessment and Plan Assessment: Impression: right renal stones in solitary right kidney Plan: right ureterorenoscopy with laser lithotripsy stone and stent removal.
[~2024-08-04 07:34] MED LIST changes: -HYDROmorphone 0.5 MG/0.5 ML SYRINGE IVP PRN; +MIDAZOLAM 2 MG/2 ML VIAL IV PRN; -droPERidol 5 MG/2 ML VIAL IVP ONE; +fentaNYL (PF) 50 MCG/ML 2 ML AMP IVP PRN
--- NOTE | 2024-08-04 08:08 | XR ---
EXAMINATION TYPE: XR KUB DATE OF EXAM: 08/04/2024 Comparison: 07/22/2024 Clinical History: 58-year-old male N20.0 right renal stone Findings: Multiple surgical clips along the left paramedian mid abdomen. Right-sided ureteral stent is present. Multiple pelvic phleboliths. Otherwise, no suspicious calcifications seen. There may be mild degenerative change at the SI joints. Incidental left L5 hemisacralization with ass imilation joint. Nonobstructive bowel gas pattern. Mild stool burden. Impression: 1. Right-sided ureteral stent. 2. Small calcifications in the pelvis probably phleboliths. [facility], , 08/04/2024 8:06 AM
[2024-08-04] MEDS: IV FLUID CONTINUATION 1,000 ML IV ONE (08:15)
[2024-08-04] MEDS: LACTATED RINGERS 1,000 ML IV SCH (08:33)
[2024-08-04] MEDS: DEXAMETHASONE SOD PHOSPHATE 4 MG/ML 1 ML VIAL IV ONE (08:34)
[2024-08-04] MEDS: ONDANSETRON 4 MG/2 ML VIAL IVP ONE (08:34)
[2024-08-04 09:00] LABS: ALT 20 U/L (4-49); AST 19 U/L (17-59); African American GFR (CKD) 65 (>60 ml/min/1.73 sqM); Alkaline Phosphatase 87 U/L (38-126); Anion Gap 10 mmol/L; Blood Urea Nitrogen 24 mg/dL (9-20); Calcium 9.5 mg/dL (8.4-10.2); Carbon Dioxide 23 mmol/L (22-30); Chloride 108 mmol/L (98-107); Glucose 104 mg/dL (74-99); Non-African American GFR(CKD) 56 (>60 ml/min/1.73 sqM); Potassium 4.4 mmol/L (3.5-5.1); Sodium 141 mmol/L (137-145); Total Bilirubin 0.4 mg/dL (0.2-1.3); Total Protein 7.2 g/dL (6.3-8.2)
[2024-08-04] MEDS ORDERED: PROPOFOL 10 MG/ML 20 ML VIAL IV ONE (09:30)
[2024-08-04] MEDS ORDERED: GLYCOPYRROLATE 0.2 MG/ML 2 ML VIAL ONE (09:30)
[2024-08-04] MEDS ORDERED: SUCCINYLCHOLINE CHLORIDE 200 MG/10 ML VIAL IV ONE (09:30)
[2024-08-04] MEDS ORDERED: fentaNYL (PF) 50 MCG/ML 2 ML AMP ONE (09:30)
[2024-08-04] MEDS ORDERED: LIDOCAINE 1% INJ 10MG/ML (20 ML MDV) ONE (09:30)
[2024-08-04] MEDS ORDERED: NEOSTIGMINE 1 MG/ML 10 ML VIAL ONE (09:30)
[2024-08-04] MEDS ORDERED: ROCURONIUM 10 MG/ML (5 ML VIAL) IV ONE (09:30)
[2024-08-04] MEDS: AMPICILLIN 1,000 MG in SODIUM CHLORIDE 0.9% 50 ML IVPB PRN (09:33)
[2024-08-04] MEDS: GENTAMICIN 140 MG in SODIUM CHLORIDE 0.9% 100 ML IVPB PRN (09:49)
--- NOTE | 2024-08-04 10:49 | P.OP ---
Date of Procedure: 08/04/24 Preoperative Diagnosis: renal stones, solitary right kidney Postoperative Diagnosis: same Procedure(s) Performed: cystoscopy, right ureteroscopy laser lithotripsy, removal double-J catheter Anesthesia: BAKARI Surgeon: Deepak Madera Estimated Blood Loss (ml): 25 Pathology: other (stone) Condition: stable Disposition: PACU Indications for Procedure: patient is 58. He has a solitary right kidney after having lost his left kidney due to cancer several years ago. He has several stones. He recently underwent ureteroscopy laser lithotripsy to remove the majority of the stone but he has remaining stones and will be removed today. Description of Procedure: patient brought to the operating suite. Given a general anesthetic. Placed lithotomy position with sterile prep and drape. Cystoscopy Foroblique lens and 21-English sheath identifies a normal urethra. The prostates minimally obstructing. The bladder ghosh normal. The right ureteral orifice is identified with the stent. The stent is removed. An 035 wires passed up the right ureter into the kidney. Over the wires passed 90-75-Khehmn reentry sheath. The inner sheath is removed. I passed the flexible ureteroscope up into the kidney. Draining fragment in the middle pole calyx is identified. It is broken into multiple pieces with the 2 and 75 laser probe. These fragments are too small to basket. At the inguinal the lower pole calyx and identify another stone that is also broken up with the laser lithotripsy. Then of the procedure there does not appear to be any significant remaining stone up. Pullout ureteroscopy does not identify enough edema or stone treatment leave the stent. The bladder is drained the patient is awakened and returned recovery room good condition. He tolerated procedure well be discharged home upon recovery and found the office one week.
--- NOTE | 2024-08-04 11:14 | FL ---
EXAMINATION TYPE: FL guidance operating room DATE OF EXAM: 08/04/2024 11:09 AM COMPARISON: Pre Operative Images if available both CT/MRI or plain film CLINICAL INDICATION: Male, 58 years old with history of Cysto for rt kidney stone; TECHNIQUE: FL guidance operating room, multiple fluoroscopic images provided for procedure. Total fluoroscopy time: 8.7 seconds Total submitted images to PACS: 3 DAP: [id number] mGym2 Gycm2 uGym2 cGycm2 or equivalent. FINDINGS: Fluoroscopic images taken for renal stone. Renal stone not definitively identified. No evidence of pn eumoperitoneum. Multilevel degeneration changes of the spine. IMPRESSION: 1. No evidence for intraoperative complication. 2. Please see the operative/procedural note for further details. [facility], , 08/04/2024 11:12 AM
[2024-08-04] MEDS: HYDROmorphone 0.5 MG/0.5 ML SYRINGE IVP PRN (11:32)
[2024-08-04] MEDS: METOPROLOL TARTRATE 5 MG/5 ML VIAL IVP STA ×2 (12:40→14:06)
[2024-08-04] MEDS: diphenhydrAMINE 50 MG/ML 1 ML VIAL IVP STA (13:03)
[2024-08-04] MEDS: MEPERIDINE 50 MG/ML SYRINGE IVP PRN (13:28)
[2024-08-04] MEDS: SCOPOLAMINE 1 MG/72 HR PATCH TRANSDERM STA (14:02)
[2024-08-04] MEDS ORDERED: Acetaminophen-Codeine 300-30mg TAB PO PRN (14:56)
[2024-08-04] MEDS ORDERED: ONDANSETRON 4 MG/2 ML VIAL IVP PRN (14:58)
[2024-08-04] MEDS: LACTATED RINGERS 1,000 ML IV ONE (17:26)
[2024-08-04] MEDS: DEXTROSE 5%-0.45% NACL 1,000 ML IV SCH (18:24)
[2024-08-04] MEDS: ACETAMINOPHEN TAB 325 MG TAB PO PRN (18:41)
[2024-08-04] MEDS: MORPHINE SULFATE 2 MG/ML SYRINGE IV PRN (18:44)
[2024-08-04] MEDS: SODIUM CHLORIDE 0.9% 2,000 ML IV ONE (20:14)
--- NOTE | 2024-08-04 20:53 | P.CONS ---
History of Present Illness - Reason for Consult Consult date: 08/04/24 - History of Present Illness History of present illness; Shad Walker is a 58-year-old male with GERD, and left nephrectomy presents for elective right ureteroscopy laser lithotripsy. Patient previously had stent placed for obstructing ureteral stone in right, followed by right ureteroscopy with laser lithotripsy. Some small fragments remained after this procedure and patient was scheduled for follow-up laser lithotripsy today. Patient is now postop with no known surgical complications. Patient is laying in bed resting with no complaints of pain. He does report feeling feverish. Patient reports absence of chills, weight loss, chest pain, palpitations, diaphoresis, dyspnea, cough, nausea, vomiting, constipation, diarrhea, abdominal pain, weakness, myalgia, dizziness, headache, and dysuria. Internal medicine was consulted for medical management. REVIEW OF SYSTEMS: All systems reviewed, pertinent positives and negatives noted in HPI. All other symptoms are negative. PHYSICAL EXAMINATION: Vitals reviewed GENERAL: No acute distress. Well developed, well nourished. HEENT: Pupils are round and equally reacting to light. EOMI. No scleral icterus. Normocephalic, atraumatic. No pharyngeal erythema. No thyromegaly. CARDIOVASCULAR: S1 and S2 present. No murmurs, rubs, or gallops. PULMONARY: Chest is clear to auscultation, no wheezing, rhonchi, or crackles. ABDOMEN: Soft, nontender, nondistended, normoactive bowel sounds. No palpable organomegaly. MUSCULOSKELETAL: No apparent joint swelling and deformities. EXTREMITIES: No apparent cyanosis, clubbing, or pedal edema. NEUROLOGICAL: The patient is alert and oriented x3, Gross neurological examination did not reveal any focal deficits. 5/5 strength bilateral UE and LE. SKIN: No apparent rashes. Assessment and plan Shad Walker is a 58-year-old male with GERD, and left nephrectomy presents for elective right ureteroscopy laser lithotripsy. #Sepsis UTI - blood culture, UA pending - IV NS 2 L given - continue rocephin 2g IVPB q24 - monitor CBC, vitals s/p Right ureteroscopy with laser lithotripsy follow urology recommendations #Allergic rhinitis Resume home medication #GERD -Home Nexium, begin pantoprazole 40 mg #BPH - Resume home Flomax F: IV LR 20 mL/hr E: Replete as needed N: Clear liquid diet DVT ppx: per primary surgical team, SCDs Code status: Full code Patient will continue to be followed from medicine follow up CBC and CMP in AM Dictation was produced using [employer] dictation software. Please excuse any grammatical, word or spelling errors. Past Medical History Past Medical History: Cancer, GERD/Reflux, Skin Disorder, Sleep Apnea/CPAP/BIPAP Additional Past Medical History / Comment(s): psoriasis, has cpap, cancer lt kidney,kidney stones History of Any Multi-Drug Resistant Organisms: None Reported Past Surgical History: Hernia Repair, Orthopedic Surgery Additional Past Surgical History / Comment(s): colonoscopy, kidney removal (lft) scrotal repair, Left orthoscopic knee repair April 2023, umbilical hernia repair w/mesh, cystoscopy w/stent placement 07-05-24, cysto/litho w/right ureteral stent 07/21/24 Past Anesthesia/Blood Transfusion Reactions: Motion Sickness Additional Past Anesthesia/Blood Transfusion Reaction / Comm: slow to come out of anesthesia Past Psychological History: No Psychological Hx Reported Smoking Status: Former smoker Past Alcohol Use History: Occasional Additional Past Alcohol Use History / Comment(s): quit smoking approx 2000, smoked approx 20 yrs <1ppd Past Drug Use History: None Reported - Past Family History Mother Family Medical History: No Reported History Medications and Allergies Home Medications Medication Instructions Recorded Confirmed Type Esomeprazole Magnesium [NexIUM] 40 mg PO DAILY 02/11/19 08/04/24 History Cyclobenzaprine [Flexeril] 5 mg PO TID PRN 07/05/24 08/04/24 History Loratadine-Pseudoeph 10-240 mg 1 tab PO DAILY 07/16/24 08/04/24 History [Claritin-D 24 Hour] Potassium Citrate [Urocit-K] 1 tab PO TID 07/16/24 08/04/24 History traMADol HCL 50 mg PO Q6H PRN 07/16/24 08/04/24 History HYDROcodone/APAP 5-325MG [[place] 1 tab PO Q4HR PRN 07/22/24 08/04/24 History 5-325] Ondansetron [Zofran] 4 mg PO Q8HR PRN 07/22/24 08/04/24 History Tamsulosin [Flomax] 0.4 mg PO BID 07/22/24 08/04/24 History Allergies Allergy/AdvReac Type Severity Reaction Status Date / Time naproxen [From Aleve] Allergy Dyspnea - Verified 08/04/24 08:12 "messes with heart rate" NSAIDS (Non-Steroidal Allergy per Verified 08/04/24 08:12 Anti-Inflamma patient only to aleve Monoamine Oxidase Inhibitors AdvReac patient Verified 08/04/24 08:12 denies, states only allergy to aleve Physical Exam Vitals: Vital Signs Temp Pulse Resp BP BP Pulse Ox 08/04/24 19:55 99.9 F H 109 H 17 84/48 78/37 99 08/04/24 18:15 101.0 F H 110 H 18 107/69 99 08/04/24 17:00 117 H 16 105/61 96 08/04/24 16:20 116 H 20 102/57 96 08/04/24 15:20 114 H 18 102/57 98 08/04/24 14:50 112 H 18 111/58 97 08/04/24 14:20 108 H 18 113/55 94 L 08/04/24 14:05 118 H 18 123/60 90 L 08/04/24 13:50 122 H 18 123/60 92 L 08/04/24 13:35 119 H 18 139/64 99 08/04/24 13:20 109 H 18 139/64 98 08/04/24 13:05 116 H 18 131/66 97 08/04/24 12:50 105 H 18 143/68 95 08/04/24 12:35 113 H 16 134/65 93 L 08/04/24 12:20 106 H 16 135/63 96 08/04/24 12:06 73 16 126/63 95 08/04/24 11:51 75 16 152/80 97 08/04/24 11:36 65 19 161/88 96 08/04/24 11:21 73 18 174/87 97 08/04/24 11:06 76 20 152/88 95 08/04/24 10:51 97.8 F 75 16 154/79 98 08/04/24 08:11 97.3 F L 82 18 123/81 97 Intake and Output 08/04/24 08/04/24 08/04/24 06:59 14:59 22:59 Intake Total 1153.5 618 Output Total 225 Balance 928.5 618 Intake: IV 1153.5 500 Oral 118 Output: Urine 200 Estimated Blood Loss 25 Other: # Voids 1 Weight 125.9 kg 125.9 kg Results CBC & Chem 7: 08/04/24 20:49 08/04/24 08:24 Labs: Abnormal Lab Results - Last 24 Hours (Table) 08/04/24 Range/Units 08:24 Chloride 108 H (98-107) mmol/L BUN 24 H (9-20) mg/dL Creatinine 1.39 H (0.66-1.25) mg/dL Glucose 104 H (74-99) mg/dL Assessment and Plan Assessment: I have seen and evaluated the patient today. I Discussed the case with the resident and agree with the resident's findings I edited the assessment and plan as necessary as documented in the resident's note.
[2024-08-04] MEDS: LORATADINE-PSEUDOEPH 5-120 MG 1 EACH TAB.ER.12H PO SCH (21:04)
[2024-08-04] MEDS: TAMSULOSIN 0.4 MG CAP.ER.24H PO SCH (21:04)
[2024-08-04 21:29] LABS: Basophils % (A) 0 %; Eosinophils % (A) 0 %; HCT 36.2 % (39.0-53.0); Lymphocytes # (A) 0.3 k/uL (1.0-4.8); Lymphocytes % (A) 1 %; MCH 29.5 pg (25.0-35.0); MCHC 33.4 g/dL (31.0-37.0); MCV 88.3 fL (80.0-100.0); Mean Platelet Volume 6.8; Monocytes # (A) 0.5 k/uL (0-1.0); Monocytes % (A) 2 %; Neutrophils # (A) 22.7 k/uL (1.3-7.7); Neutrophils % (A) 96 %; Platelet Count 316 k/uL (150-450); RDW 13.9 % (11.5-15.5); WBC 23.6 k/uL (3.8-10.6)
[2024-08-04 21:50] LABS: HGB 12.1 gm/dL (13.0-17.5)
[2024-08-04 22:18] LABS: Appearance,Urine Turbid (Clear); Bilirubin,Urine Negative (Negative); Blood,Urine Large (Negative); Budding Yeast,Urine Few /hpf; Color,Urine Light Red; Glucose,Urine (UA) Negative (Negative); Ketones,Urine Negative (Negative); Leukocyte Esterase,Urine Large (Negative); Mucus,Urine Occasional /hpf; Nitrite,Urine Negative (Negative); PH, Urine 5.5 (5.0-8.0); Protein,Urine 2+ (Negative); RBC,Urine >182 /hpf (0-5); Specific Gravity,Urine 1.012 (1.001-1.035); Urobilinogen,Urine <2.0 mg/dL (<2.0); WBC,Urine >182 /hpf (0-5)
[2024-08-04] MEDS: SODIUM CHLORIDE 0.9% 1,000 ML IV ONE (22:54)
[2024-08-04] MEDS ORDERED: SODIUM CHLORIDE 0.65% NASAL SPRAY 44 ML BTL NASAL PRN (23:53)
[2024-08-05] MEDS: FLUTICASONE NASAL 50MCG/SPRAY 16GM BTL EA NOSTRIL PRN (00:33)
[2024-08-05] MEDS: PANTOPRAZOLE 40 MG TABLET PO SCH (05:21)
[2024-08-05 07:31] LABS: Basophils % (A) 0 %; Eosinophils # (A) 0.2 k/uL (0-0.7); Eosinophils % (A) 1 %; HCT 36.2 % (39.0-53.0); HGB 12.2 gm/dL (13.0-17.5); Lymphocytes # (A) 0.6 k/uL (1.0-4.8); Lymphocytes % (A) 4 %; MCH 29.6 pg (25.0-35.0); MCHC 33.6 g/dL (31.0-37.0); Mean Platelet Volume 7.3; Monocytes # (A) 0.6 k/uL (0-1.0); Monocytes % (A) 4 %; Neutrophils # (A) 13.5 k/uL (1.3-7.7); Neutrophils % (A) 90 %; Platelet Count 254 k/uL (150-450); RBC 4.11 m/uL (4.30-5.90); RDW 14.4 % (11.5-15.5)
[2024-08-05 07:49] LABS: ALT 20 U/L (4-49); AST 17 U/L (17-59); African American GFR (CKD) 64 (>60 ml/min/1.73 sqM); Albumin 2.8 g/dL (3.5-5.0); Alkaline Phosphatase 61 U/L (38-126); Anion Gap 7 mmol/L; Blood Urea Nitrogen 23 mg/dL (9-20); Calcium 7.8 mg/dL (8.4-10.2); Carbon Dioxide 22 mmol/L (22-30); Chloride 108 mmol/L (98-107); Glucose 111 mg/dL (74-99); Non-African American GFR(CKD) 56 (>60 ml/min/1.73 sqM); Potassium 3.8 mmol/L (3.5-5.1); Sodium 137 mmol/L (137-145); Total Bilirubin 0.4 mg/dL (0.2-1.3); Total Protein 5.5 g/dL (6.3-8.2)
[2024-08-05 09:09] VITALS: RESP 18
--- NOTE | 2024-08-05 10:55 | P.PN ---
Subjective Progress Note Date: 08/05/24 Hospital course Shad Walker is a 58-year-old male with GERD, and left nephrectomy presents for elective right ureteroscopy laser lithotripsy. Patient previously had stent placed for obstructing ureteral stone in right, followed by right ureteroscopy with laser lithotripsy. Some small fragments remained after this procedure and patient was scheduled for follow-up laser lithotripsy today. Patient is now postop with no known surgical complications. After the procedure patient was tachycardic. So he was referred for admission. When patient arrived to the floor he did have a fever as well. Patient started on IV Rocephin. UA consistent with UTI. Patient seen this morning. He states that he feels tired. He states that last night he could not get good sleep. 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 Psych - Calm and cooperative Assessment and plan Sepsis on admission UTI Follow-up on blood culture Follow-up on urine culture Reviewed UA which is consistent with UTI Continue with IV Rocephin 2 g every 24 hours WBC is 15 which is improving Follow-up on neurology recommendations Tachycardia and fevers resolved CKD stage III Creatinine is 1.4 which is around his baseline Allergic rhinitis Resume home medication GERD Continue with pantoprazole 40 mg daily BPH Continue with Flomax DVT prophylaxis: SCDs CODE STATUS: Full code Objective - Vital Signs Vital signs: Vital Signs Temp 98.6 F 08/05/24 08:00 Pulse 83 08/05/24 08:00 Resp 18 08/05/24 08:00 BP 120/71 08/05/24 08:00 Pulse Ox 96 08/05/24 08:00 FiO2 Intake & Output 08/04/24 08/05/24 08/05/24 18:59 06:59 18:59 Intake Total 1771.5 118 Output Total 225 400 Balance 1546.5 -400 118 Weight 125.9 kg 131.2 kg Intake: IV 1653.5 Oral 118 118 Output: Urine 200 400 Estimated Blood Loss 25 Other: # Voids 1 - Labs CBC & Chem 7: 08/05/24 07:18 08/05/24 07:18 Labs: Abnormal Lab Results - Last 24 Hours (Table) 08/04/24 08/04/24 08/05/24 Range/Units 20:49 21:36 07:18 WBC 23.6 H 15.0 H (3.8-10.6) k/uL RBC 4.10 L 4.11 L (4.30-5.90) m/uL Hgb 12.1 L D 12.2 L (13.0-17.5) gm/dL Hct 36.2 L 36.2 L (39.0-53.0) % Neutrophils # 22.7 H 13.5 H (1.3-7.7) k/uL Lymphocytes # 0.3 L 0.6 L (1.0-4.8) k/uL Chloride (98-107) mmol/L BUN (9-20) mg/dL Creatinine (0.66-1.25) mg/dL Glucose (74-99) mg/dL Calcium (8.4-10.2) mg/dL Total Protein (6.3-8.2) g/dL Albumin (3.5-5.0) g/dL Urine Protein 2+ H (Negative) Urine Blood Large H (Negative) Ur Leukocyte Esterase Large H (Negative) Urine RBC >182 H (0-5) /hpf Urine WBC >182 H (0-5) /hpf Urine WBC Clumps Moderate H (None) /hpf Urine Mucus Occasional H (None) /hpf Urine Yeast (Budding) Few H (None) /hpf 08/05/24 Range/Units 07:18 WBC (3.8-10.6) k/uL RBC (4.30-5.90) m/uL Hgb (13.0-17.5) gm/dL Hct (39.0-53.0) % Neutrophils # (1.3-7.7) k/uL Lymphocytes # (1.0-4.8) k/uL Chloride 108 H (98-107) mmol/L BUN 23 H (9-20) mg/dL Creatinine 1.40 H (0.66-1.25) mg/dL Glucose 111 H (74-99) mg/dL Calcium 7.8 L (8.4-10.2) mg/dL Total Protein 5.5 L (6.3-8.2) g/dL Albumin 2.8 L (3.5-5.0) g/dL Urine Protein (Negative) Urine Blood (Negative) Ur Leukocyte Esterase (Negative) Urine RBC (0-5) /hpf Urine WBC (0-5) /hpf Urine WBC Clumps (None) /hpf Urine Mucus (None) /hpf Urine Yeast (Budding) (None) /hpf
--- NOTE | 2024-08-05 18:23 | P.PN ---
Subjective Progress Note Date: 08/05/24 Status post ureteroscopy with holmium laser by Dr. Madera yesterday, patient does have history of solitary kidney. Postoperatively patient was tachycardic and had a temperature of 101, this all has resolved this morning. Still having some flank pain with diffuse abdominal pain. He did have nausea postoperatively which has resolved. Objective - Vital Signs Vital signs: Vital Signs Temp 98.6 F 08/05/24 08:00 Pulse 83 08/05/24 13:55 Resp 18 08/05/24 12:00 BP 130/69 08/05/24 12:00 Pulse Ox 95 08/05/24 12:00 FiO2 Intake & Output 08/04/24 08/05/24 08/05/24 18:59 06:59 18:59 Intake Total 1771.5 236 Output Total 225 400 Balance 1546.5 -400 236 Weight 125.9 kg 131.2 kg Intake: IV 1653.5 Oral 118 236 Output: Urine 200 400 Estimated Blood Loss 25 Other: # Voids 1 2 - Constitutional General appearance: Present: no acute distress - Gastrointestinal General gastrointestinal: Present: soft. Absent: decreased bowel sounds, distended, tenderness - Psychiatric Psychiatric: Present: A&O x's 3 - Labs CBC & Chem 7: 08/05/24 07:18 08/05/24 07:18 Labs: Abnormal Lab Results - Last 24 Hours (Table) 08/04/24 08/04/24 08/05/24 Range/Units 20:49 21:36 07:18 WBC 23.6 H 15.0 H (3.8-10.6) k/uL RBC 4.10 L 4.11 L (4.30-5.90) m/uL Hgb 12.1 L D 12.2 L (13.0-17.5) gm/dL Hct 36.2 L 36.2 L (39.0-53.0) % Neutrophils # 22.7 H 13.5 H (1.3-7.7) k/uL Lymphocytes # 0.3 L 0.6 L (1.0-4.8) k/uL Chloride (98-107) mmol/L BUN (9-20) mg/dL Creatinine (0.66-1.25) mg/dL Glucose (74-99) mg/dL Calcium (8.4-10.2) mg/dL Total Protein (6.3-8.2) g/dL Albumin (3.5-5.0) g/dL Urine Protein 2+ H (Negative) Urine Blood Large H (Negative) Ur Leukocyte Esterase Large H (Negative) Urine RBC >182 H (0-5) /hpf Urine WBC >182 H (0-5) /hpf Urine WBC Clumps Moderate H (None) /hpf Urine Mucus Occasional H (None) /hpf Urine Yeast (Budding) Few H (None) /hpf 08/05/24 Range/Units 07:18 WBC (3.8-10.6) k/uL RBC (4.30-5.90) m/uL Hgb (13.0-17.5) gm/dL Hct (39.0-53.0) % Neutrophils # (1.3-7.7) k/uL Lymphocytes # (1.0-4.8) k/uL Chloride 108 H (98-107) mmol/L BUN 23 H (9-20) mg/dL Creatinine 1.40 H (0.66-1.25) mg/dL Glucose 111 H (74-99) mg/dL Calcium 7.8 L (8.4-10.2) mg/dL Total Protein 5.5 L (6.3-8.2) g/dL Albumin 2.8 L (3.5-5.0) g/dL Urine Protein (Negative) Urine Blood (Negative) Ur Leukocyte Esterase (Negative) Urine RBC (0-5) /hpf Urine WBC (0-5) /hpf Urine WBC Clumps (None) /hpf Urine Mucus (None) /hpf Urine Yeast (Budding) (None) /hpf Assessment and Plan Assessment: Status post right-sided ureteroscopy with laser, patient had postoperative tachycardia and fever. This most likely secondary to his stone manipulation. From urology standpoint he can be discharged once he is afebrile for 24 hours on p.o. antibiotics.
[2024-08-06 04:44] VITALS: TEMP 98.5
[2024-08-06 11:22] VITALS: BP 145/78; PULSE 74
--- NOTE | 2024-08-06 11:51 | P.DS ---
Providers Date of admission: 08/04/24 14:57 Attending physician: Yobany Baca Primary care physician: Gee [facility] Course: Discharge Diagnosis: Sepsis on admission UTI CKD stage III Allergic rhinitis GERD BPH Hospital Course: Shad Walker is a 58-year-old male with GERD, and left nephrectomy presents for elective right ureteroscopy laser lithotripsy. Patient previously had stent placed for obstructing ureteral stone in right, followed by right ureteroscopy with laser lithotripsy. Some small fragments remained after this procedure and patient was scheduled for follow-up laser lithotripsy today. Patient is now postop with no known surgical complications. After the procedure patient was tachycardic. So he was referred for admission. When patient arrived to the floor he did have a fever as well. Patient started on IV Rocephin. UA consistent with UTI. Patient's tachycardia and fevers resolved. His WBC trended down. Patient's symptoms improved. His urine culture did come back negative. Blood culture was negative for 24 hours. Patient seen by urology and was cleared for discharge. Urology did recommend oral antibiotics and discharge. Patient will be discharged on Ceftin for 5 more days. Patient instructed to follow-up with urology. Patient seen and examined at bedside.[] Vital signs reviewed and stable. 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 Patient discharged on [08/06/2024] Patient Condition at Discharge: Good Plan - Discharge Summary Discharge Rx Participant: No New Discharge Prescriptions: New Cefuroxime [Ceftin] 250 mg PO BID 5 Days #10 tab Continue Esomeprazole Magnesium [NexIUM] 40 mg PO DAILY Loratadine-Pseudoeph 10-240 mg [Claritin-D 24 Hour] 1 tab PO DAILY Potassium Citrate [Urocit-K] 1 tab PO TID Cyclobenzaprine [Flexeril] 5 mg PO TID PRN PRN Reason: Muscle Spasm traMADol HCL 50 mg PO Q6H PRN PRN Reason: Pain Ondansetron [Zofran] 4 mg PO Q8HR PRN PRN Reason: Nausea Tamsulosin [Flomax] 0.4 mg PO BID HYDROcodone/APAP 5-325MG [[place] 5-325] 1 tab PO Q4HR PRN PRN Reason: Pain Discharge Medication List Esomeprazole Magnesium [NexIUM] 40 mg PO DAILY 02/11/19 [History] Cyclobenzaprine [Flexeril] 5 mg PO TID PRN 07/05/24 [History] Loratadine-Pseudoeph 10-240 mg [Claritin-D 24 Hour] 1 tab PO DAILY 07/16/24 [History] Potassium Citrate [Urocit-K] 1 tab PO TID 07/16/24 [History] traMADol HCL 50 mg PO Q6H PRN 07/16/24 [History] HYDROcodone/APAP 5-325MG [[place] 5-325] 1 tab PO Q4HR PRN 07/22/24 [History] Ondansetron [Zofran] 4 mg PO Q8HR PRN 07/22/24 [History] Tamsulosin [Flomax] 0.4 mg PO BID 07/22/24 [History] Cefuroxime [Ceftin] 250 mg PO BID 5 Days #10 tab 08/06/24 [Rx] Follow up Appointment(s)/Referral(s): Deepak Madera MD [STAFF PHYSICIAN] - 1 Week Patient Instructions/Handouts: *Surgery [facility] - (Anesthesia) Discharge Instructions Outpatient Surgery
== END 2024-08-06 13:00 | disposition home or self-care (01) ==
LOC: OR 07:34 → 3SCARD 14:57
PROVIDERS: ADMIT Student in an Organized Health Care Education/Training Program; ATTEND Student in an Organized Health Care Education/Training Program
DX: N20.1 Calculus of ureter (principal); K21.9 Gastro-esophageal reflux disease without esophagitis; G47.33 Obstructive sleep apnea (adult) (pediatric); A41.9 Sepsis, unspecified organism; J30.9 Allergic rhinitis, unspecified; N18.30 Chronic kidney disease, stage 3 unspecified; N39.0 Urinary tract infection, site not specified; N40.0 Benign prostatic hyperplasia without lower urinary tract symptoms; Z79.899 Other long term (current) drug therapy; Z85.528 Personal history of other malignant neoplasm of kidney; Z87.442 Personal history of urinary calculi; Z87.891 Personal history of nicotine dependence; Z90.5 Acquired absence of kidney; Z88.6 Allergy status to analgesic agent
CPT/HCPCS: 52353; 96365; 96366 ×3; 80053 ×2; 85025 ×2; 81001; 87040; 82365; 87086; 74018; G0378 ×3; C1769; J0330; J1200; J1100; J2710; J2175; J2405; J0696 ×3; J2003; J3010; J1580; J0290; J2270 ×3; J2704; J1171; J1596

== ENCOUNTER → 2024-11-01 | Outpatient (CLI) | payer BC ==
--- NOTE | 2024-11-01 09:59 | XR ---
EXAMINATION TYPE: XR knee complete LT DATE OF EXAM: 11/01/2024 9:48 AM INDICATION: Patient age:Male; 59 years old; Reason for study: [id number] LT KNEE PAIN; [facility]. pain COMPARISON: Left knee radiograph 06/14/2024. TECHNIQUE: The Left knee(s) was examined in Frontal, lateral and oblique projections. FINDINGS: Postsurgical changes from total left knee arthroplasty with distal femoral and proximal tib ial components. Hardware appears intact with proper alignment. No evidence of any acute osseous path ology, soft tissue swelling, or joint effusion is noted. IMPRESSION: 1. No acute osseous pathology. 2. Postsurgical changes from total left knee arthroplasty. [facility], , 11/01/2024 9:56 AM
== END | disposition home or self-care (01) ==
LOC: RADXRYALE 09:38
PROVIDERS: ATTEND Family Medicine
DX: M25.562 Pain in left knee (principal); Z96.652 Presence of left artificial knee joint

== ENCOUNTER → 2025-03-30 | Outpatient (CLI) | payer BC ==
--- NOTE | 2025-03-31 08:23 | XR ---
EXAMINATION TYPE: XR chest 2V DATE OF EXAM: 03/30/2025 4:09 PM COMPARISON: 09/12/2023 CLINICAL INDICATION: Male, 59 years old with history of R0602, R059 SOB, COUGH, , TECHNIQUE: Frontal and lateral views FINDINGS: Heart normal size. Aorta vasculature within normal limits. Strandy atelectasis at the left base. Othe rwise, no consolidation or pleural effusion. IMPRESSION: Strandy left basilar atelectasis. Otherwise, no acute process seen. [facility], Workstation: [facility], 03/31/2025 8:21 AM
== END | disposition home or self-care (01) ==
LOC: RADXRYALE 15:58
PROVIDERS: ATTEND Physician Assistant Medical
DX: J98.11 Atelectasis (principal)
CPT/HCPCS: 71046

== ENCOUNTER 2025-04-03 17:36 | Emergency (ER) | payer BC ==
[2025-04-03 17:53] VITALS: RESP 18
--- NOTE | 2025-04-03 18:05 | ED ---
Chest Pain HPI - General Chief Complaint: Chest Pain Stated Complaint: Chest Pain/SID Time Seen by Provider: 04/03/25 17:59 Source: patient, RN notes reviewed, old records reviewed Mode of arrival: ambulatory Limitations: no limitations - History of Present Illness Initial Comments: This is a 59-year-old male to the ER for evaluation patient [facility] for evaluation regards to chest pain and shortness of breath patient was told he has pneumonia with partial lung collapse, patient concerned of the symptoms coming in for chest pain today. Also persistent and consistent cough. Patient is a former smoker quit 20 years ago and smoked for about 20 years MD Complaint: chest pain, other (Cough and congestion) -: week(s) Onset: during rest, during exertion Pain Location: substernal, left chest Pain Radiation: none Severity: moderate Severity scale (1-10): 4 Quality: tightness Consistency: intermittent Improves With: nothing Worsens With: nothing Other Symptoms: cough Treatments Prior to Arrival: none - Related Data Home Medications Medication Instructions Recorded Confirmed Esomeprazole Magnesium [NexIUM] 40 mg PO DAILY 02/11/19 08/04/24 Cyclobenzaprine [Flexeril] 5 mg PO TID PRN 07/05/24 08/04/24 Loratadine-Pseudoeph 10-240 mg 1 tab PO DAILY 07/16/24 08/04/24 [Claritin-D 24 Hour] Potassium Citrate [Urocit-K] 1 tab PO TID 07/16/24 08/04/24 traMADol HCL 50 mg PO Q6H PRN 07/16/24 08/04/24 HYDROcodone/APAP 5-325MG [[place] 1 tab PO Q4HR PRN 07/22/24 08/04/24 5-325] Ondansetron [Zofran] 4 mg PO Q8HR PRN 07/22/24 08/04/24 Tamsulosin [Flomax] 0.4 mg PO BID 07/22/24 08/04/24 Previous Rx's Medication Instructions Recorded Cefuroxime [Ceftin] 250 mg PO BID 5 Days #10 tab 08/06/24 Allergies Allergy/AdvReac Type Severity Reaction Status Date / Time naproxen [From Aleve] Allergy Dyspnea - Verified 04/03/25 17:53 "messes with heart rate" NSAIDS (Non-Steroidal Allergy per Verified 04/03/25 17:53 Anti-Inflamma patient only to aleve Monoamine Oxidase Inhibitors AdvReac patient Verified 04/03/25 17:53 denies, states only allergy to aleve Review of Systems ROS Statement: Those systems with pertinent positive or pertinent negative responses have been documented in the HPI. ROS Other: All systems not noted in ROS Statement are negative. EKG Findings - EKG Comments: EKG Findings:: EKG sinus 83 OH 155 QRS 113 QTc 412 - EKG Results: EKG: interpreted by E[facility] Past Medical History Past Medical History: Cancer, GERD/Reflux, Skin Disorder, Sleep Apnea/CPAP/BIPAP Additional Past Medical History / Comment(s): psoriasis, has cpap, cancer lt kidney,kidney stones History of Any Multi-Drug Resistant Organisms: None Reported Past Surgical History: Hernia Repair, Orthopedic Surgery Additional Past Surgical History / Comment(s): colonoscopy, kidney removal (lft) scrotal repair, Left orthoscopic knee repair April 2023, umbilical hernia repair w/mesh, cystoscopy w/stent placement 07-05-24, cysto/litho w/right ureteral stent 07/21/24 Past Anesthesia/Blood Transfusion Reactions: Motion Sickness Additional Past Anesthesia/Blood Transfusion Reaction / Comment(s): slow to come out of anesthesia Past Psychological History: No Psychological Hx Reported Smoking Status: Former smoker Past Alcohol Use History: Occasional Past Drug Use History: None Reported - Past Family History Mother Family Medical History: No Reported History General Exam Limitations: no limitations General appearance: alert, in no apparent distress Head exam: Present: atraumatic, normocephalic, normal inspection Eye exam: Present: normal appearance, PERRL, EOMI. Absent: scleral icterus, conjunctival injection, periorbital swelling ENT exam: Present: normal exam, mucous membranes moist Neck exam: Present: normal inspection. Absent: tenderness, meningismus, lympha denopathy Respiratory exam: Present: normal lung sounds bilaterally, wheezes. Absent: respiratory distress, rales, rhonchi, stridor Cardiovascular Exam: Present: regular rate, normal rhythm, normal heart sounds. Absent: systolic murmur, diastolic murmur, rubs, gallop, clicks GI/Abdominal exam: Present: soft, normal bowel sounds. Absent: distended, tenderness, guarding, rebound, rigid Extremities exam: Present: normal inspection, full ROM, normal capillary refill. Absent: tenderness, pedal edema, joint swelling, calf tenderness Back exam: Present: normal inspection Neurological exam: Present: alert, oriented X3, CN II-XII intact Psychiatric exam: Present: normal affect, normal mood Skin exam: Present: warm, dry, intact, normal color. Absent: rash Course Vital Signs 04/03/25 17:50 Temperature 98.7 F Pulse Rate 89 Respiratory 18 Rate Blood Pressure 157/92 O2 Sat by Pulse 98 Oximetry - Reevaluation(s) Reevaluation #1: 04/03/25 19:38 Medical records reviewed Reevaluation #2: 04/03/25 19:38 Patient still with cough and productive cough Reevaluation #3: 04/03/25 19:39 Patient informed of results and questions answered Reevaluation #4: Was pt. sent in by a medical professional or institution (BIJAN Stein, NURSE RN BSN, urgent care, hospital, or assisted...) When possible be specific @ -no Did you speak to anyone other than the patient for history (EMS, parent, family, police, friend...)? What history was obtained from this source @ -no Did you review nursing and triage notes (agree or disagree)? Why? @ -agree Are old charts reviewed (outside hosp., previous admission, EMS record, old EKG, old radiological studies, urgent care reports/EKG's, assisted records)? Report findings @ -yes Differential Diagnosis (chest pain, altered mental status, abdominal pain women, abdominal pain men, vaginal bleeding, weakness, fever, dyspnea, syncope, headache, dizziness, GI bleed, back pain, seizure, CVA, palpatations, mental health, musculoskeletal)? @ -prior EKG interpreted by me (3pts min.). @ -yes X-rays interpreted by me (1pt min.). @ -yes negative for acute disease CT interpreted by me (1pt min.). @ -no U/S interpreted by me (1pt. min.). @ -no What testing was considered but not performed or refused? (CT, X-rays, U/S, labs)? Why? @ -none What meds were considered but not given or refused? Why? @ -none Did you discuss the management of the patient with other professionals (pr ofessionals i.e. Dr., PA, NURSE RN BSN, lab, RT, psych nurse, high school social studies tutor, data processing consultant, teacher, fisheries officer, catalytic case operator)? Give summary @ -no Was smoking cessation discussed for >3mins.? @ -no Was critical care preformed (if so, how long)? @ -no Were there social determinants of health that impacted care today? How? (Homelessness, low income, unemployed, alcoholism, drug addiction, transportation, low edu. Level, literacy, decrease access to med. care, detention, rehab)? @ -none Was there de-escalation of care discussed even if they declined (Discuss DNR or withdrawal of care, Hospice)? DNR status @ -no What co-morbidities impacted this encounter? (DM, HTN, Smoking, COPD, CAD, Cancer, CVA, ARF, Chemo, Hep., AIDS, mental health diagnosis, sleep apnea, morbid obesity)? @ -none Was patient admitted / discharged? Hospital course, mention meds given and route, prescriptions, significant lab abnormalities, going to OR and other pertinent info. @ - Undiagnosed new problem with uncertain prognosis? @ -no Drug Therapy requiring intensive monitoring for toxicity (Heparin, Nitro, Insulin, Cardizem)? @ -no Were any procedures done? @ -no Diagnosis/symptom? @ - Acute, or Chronic, or Acute on Chronic? @ -Acute Uncomplicated (without systemic symptoms) or Complicated (systemic symptoms)? @ -Complicated Side effects of treatment? @ -no Exacerbation, Progression, or Severe Exacerbation? @ -exacerbation Poses a threat to life or bodily function? How? (Chest pain, [place], MT, pneumonia, PE, COPD, DKA, ARF, appy, cholecystitis, CVA, Diverticulitis, Homicidal, Suicidal, threat to staff... and all critical care pts) @ -yes Reevaluation #5: Differential Dyspnea: Coronary syndrome, arrhythmia, tamponade, asthma, COPD, pulmonary embolism, pneumonia, pneumothorax, pulmonary effusion, anaphylaxis, diabetic ketoacidosis, flailed chest, pulmonary contusion, diaphragmatic rupture, anemia, neuromuscular, this is not meant to be an all-inclusive list. Differential Chest Pain: Stable Angina, Unstable Angina, STEMI, NSTEMI Aortic Dissection, Pneumothorax, Musculoskeletal, Esophageal Spasm GERD, Cholecystitis, Pancreatitis, Zoster, this is not meant to be an all-inclusive list. Chest Pain MDM - MDM 59 male will be discharged home, patient does have chest pain does have bronchitis, patient will follow-up with pulmonology as an outpatient regarding acute bronchitis versus dyspnea and chest pain persistent Disposition Clinical Impression: Atypical chest pain, Chest pain, Acute bronchitis Disposition: HOME SELF-CARE Condition: Good Instructions (If sedation given, give patient instructions): Chest Pain (ED), Acute Bronchitis (ED), Chronic Bronchitis (ED) Is patient prescribed a controlled substance at d/c from ED?: No Referrals: Gee Logan DO [Primary Care Provider] - 1-2 days Carlos Ta MD [STAFF PHYSICIAN] - 1-2 days Time of Disposition: 19:30
[2025-04-03 18:30] LABS: Basophils # (A) 0.05 10*3/uL (0.00-0.10); Basophils % (A) 0.4 %; Eosinophils # (A) 0.39 10*3/uL (0.04-0.35); Eosinophils % (A) 3.4 %; HCT 45.2 % (39.6-50.0); HGB 15.7 g/dL (13.0-17.0); Lymphocytes # (A) 2.42 10*3/uL (0.90-5.00); Lymphocytes % (A) 20.8 %; MCH 30.6 pg (27.0-32.0); MCHC 34.7 g/dL (32.0-37.0); MCV 88.1 fL (80.0-97.0); Mean Platelet Volume 9.7 fL (9.5-12.2); Monocytes # (A) 0.93 10*3/uL (0.20-1.00); Neutrophils # (A) 7.76 10*3/uL (1.80-7.70); Neutrophils % (A) 66.8 %; Platelet Count 261 10*3/uL (140-440); RBC 5.13 10*6/uL (4.40-5.60); RDW 13.4 % (11.5-14.5); WBC 11.62 10*3/uL (4.50-10.00)
[2025-04-03 18:46] LABS: INR 0.9 (<1.2); Partial Thromboplastin Time 25.7 sec (22.0-30.0); Prothrombin Time 10.4 sec (10.0-12.5)
[2025-04-03 18:48] LABS: ALT 33 U/L (4-49); African American GFR (CKD) >90 (>60 ml/min/1.73 sqM); Anion Gap 12 mmol/L; Blood Urea Nitrogen 20 mg/dL (9-20); Calcium 9.5 mg/dL (8.4-10.2); Carbon Dioxide 16 mmol/L (22-30); Chloride 109 mmol/L (98-107); Glucose 117 mg/dL (74-99); Lipase 79 U/L (23-300); Non-African American GFR(CKD) 82 (>60 ml/min/1.73 sqM); Sodium 137 mmol/L (137-145)
[2025-04-03 18:53] LABS: AST 56 U/L (17-59); Albumin 4.2 g/dL (3.5-5.0); Alkaline Phosphatase 75 U/L (38-126); Potassium 5.1 mmol/L (3.5-5.1); Total Bilirubin 1.3 mg/dL (0.2-1.3); Total Protein 7.4 g/dL (6.3-8.2)
[2025-04-03 18:57] LABS: NT-Pro-B-Type Natriuretic Pept <20 pg/mL
--- NOTE | 2025-04-03 19:23 | CT ---
EXAMINATION TYPE: CT angio chest DATE OF EXAM: 04/03/2025 7:09 PM COMPARISON: None. CLINICAL INDICATION: Male, 59 years old with history of cp, CHEST PAINS, TECHNIQUE: Axial CT was performed with sagittal and coronal reformats. 3D reconstruction and/or MIP imaging was also performed on a separate workstation. IV CONTRAST: with IV Contrast, patient injected with 100 ml mL of Isovue 370. (None if empty) CT DLP: 1121 mGycm, Automated exposure control for dose reduction was used. FINDINGS: PULMONARY ARTERIES: The pulmonary arteries and their major tributaries are patent. I do not see shannen dence for sizable filling defect to suggest pulmonary embolic process. LUNGS: The lungs are clear and free of infiltrate. No evidence for atelectasis. No pulmonary nodule or mass is detected. No pleural effusion. MEDIASTINUM: Thoracic aorta is of normal caliber,however, evaluation is limited given timing of the contrast bolus. Granuloma lingula. If there is concern for thoracic aortic pathology consider MILE. Correlate clinically. No evidence for mediastinal mass. No mediastinal lymph nodes greater than 1cm . HEART: Size within normal limits. No significant coronary artery calcifications. HILAR STRUCTURES: No evidence for mass. No hilar lymph nodes greater than 1 cm. UPPER ABDOMEN: No significant abnormality is seen. IMPRESSION: 1. No evidence for Pulmonary embolism at this time. [facility], , 04/03/2025 7:20 PM
[2025-04-03] MEDS: SODIUM CHLORIDE 0.9% 1,000 ML IV ONE (19:40)
[2025-04-03 19:58] VITALS: BP 135/85; PULSE 65; TEMP 97.9
== END 2025-04-03 19:58 | disposition home or self-care (01) ==
LOC: EC 17:36
DX: J20.9 Acute bronchitis, unspecified (principal); Z87.891 Personal history of nicotine dependence; Z88.6 Allergy status to analgesic agent; Z88.8 Allergy status to other drugs, medicaments and biological substances
CPT/HCPCS: 36415; 93005; 85379; 83880; 80053; 83690; 83735; 84484; 85025; 85610; 85730; 71275; 99285; Q9967